=== PATIENT | female | born 1965 | race Caucasian/White ===

== ENCOUNTER 2017-03-15 22:11 | Emergency (ER) | payer OTHER ==
--- NOTE | 2017-03-15 22:34 | ED ---
General Adult HPI - General Source: patient, EMS, RN notes reviewed Mode of arrival: EMS Limitations: no limitations <Josesito Liang - Last Filed: 03/16/17 00:18> <Ottoniel Garner - Last Filed: 03/17/17 10:47> - General Chief complaint: Fall Stated complaint: fall Time Seen by Provider: 03/15/17 22:15 - History of Present Illness Initial comments: Patient is a pleasant 52-year-old female presenting to the emergency department following a fall. Patient states she fell getting out of bed. Patient omits to alcohol intake. Patient states she landed on her left hip and complains of pain there. Patient believes she did strike her head. No loss of consciousness. Mild headache right posterior side. No neck pain. No chest pain or dyspnea. Patient does frequently drink alcohol. (Josesito Liang) - Related Data Home Medications Medication Instructions Recorded Confirmed Calcium Carbonate [Calcium] 600 mg PO DAILY 03/16/17 03/16/17 L.acidoph,Paracasei, B.lactis 1 cap PO DAILY 03/16/17 03/16/17 [Probiotic] Multivitamins, Thera [Multivitamin 1 tab PO DAILY 03/16/17 03/16/17 (formulary)] Allergies Allergy/AdvReac Type Severity Reaction Status Date / Time Penicillins Allergy Unknown Verified 03/16/17 09:01 Review of Systems ROS Other: All systems not noted in ROS Statement are negative. Constitutional: Denies: fever Eyes: Denies: eye pain ENT: Denies: ear pain Respiratory: Denies: cough Cardiovascular: Denies: chest pain Endocrine: Denies: fatigue Gastrointestinal: Denies: abdominal pain Genitourinary: Denies: urgency Musculoskeletal: Denies: back pain Skin: Denies: rash Neurological: Denies: weakness <Josesito Liang - Last Filed: 03/16/17 00:18> ROS Other: All systems not noted in ROS Statement are negative. <Ottoniel Garner - Last Filed: 03/17/17 10:47> ROS Statement: Those systems with pertinent positive or pertinent negative responses have been documented in the HPI. Past Medical History Past Medical History: Diabetes Mellitus, Seizure Disorder History of Any Multi-Drug Resistant Organisms: None Reported Past Surgical History: Tubal Ligation Past Psychological History: Anxiety, Depression Smoking Status: Current every day smoker Past Alcohol Use History: Occasional Past Drug Use History: None Reported <Josesito Liang - Last Filed: 03/16/17 00:18> General Exam Limitations: no limitations General appearance: alert, in no apparent distress Head exam: Present: other (Mild tenderness right posterior) Eye exam: Present: normal appearance, PERRL, nystagmus ENT exam: Present: normal oropharynx Neck exam: Present: normal inspection. Absent: tenderness Respiratory exam: Present: normal lung sounds bilaterally Cardiovascular Exam: Present: regular rate, normal rhythm GI/Abdominal exam: Present: soft. Absent: tenderness Extremities exam: Present: normal inspection, tenderness (Moderate tenderness left lateral hip. Distally the extremity is neurovascular intact) Neurological exam: Present: alert, CN II-XII intact. Absent: motor sensory deficit Expanded Motor strength exam: RUE: 5, LUE: 5, RLE: 5, LLE: 5 Psychiatric exam: Present: normal affect, normal mood Skin exam: Absent: rash <Josesito Liang - Last Filed: 03/16/17 00:18> Course <Josesito Liang - Last Filed: 03/16/17 00:18> <Ottoniel Garner - Last Filed: 03/17/17 10:47> Vital Signs 03/15/17 03/15/17 03/15/17 22:24 22:34 23:50 Temperature 97.6 F Pulse Rate 111 H Respiratory 16 16 16 Rate Blood Pressure 147/99 O2 Sat by Pulse 99 Oximetry 03/16/17 03/16/17 03/16/17 07:11 07:12 10:26 Temperature 98.2 F Pulse Rate 78 91 Respiratory 78 H 18 18 Rate Blood Pressure 111/75 136/90 O2 Sat by Pulse 95 96 Oximetry 03/16/17 03/16/17 03/17/17 13:20 19:41 07:05 Temperature 98.5 F 98.0 F 97.6 F Pulse Rate 75 65 65 Respiratory 18 16 18 Rate Blood Pressure 144/87 152/97 159/99 O2 Sat by Pulse 95 98 99 Oximetry - Reevaluation(s) Reevaluation #1: 03/16/17 00:18 Patient was able to ambulate. Patient does complain of some depression and suicidal thoughts. No plan. (Josesito Liang) Medical Decision Making - Radiology Data Radiology results: report reviewed (Computed tomography scan of the brain and cervical spine show no acute abnormality.), image reviewed (X-ray left hip and pelvis shows no acute process.) <Josesito Liang - Last Filed: 03/16/17 00:18> - Lab Data Result diagrams: 03/16/17 13:23 03/16/17 13:23 <Ottoniel Garner - Last Filed: 03/17/17 10:47> - Medical Decision Making The patient was reevaluated by [facility] and it was determined that she would be suitable for outpatient treatment and follow-up. Patient was in agreement with this and she stated she could be safe if she was to go home. (Ottoniel Garner) - Lab Data Lab Results 03/16/17 03/16/17 03/16/17 Range/Units 02:00 13:23 13:23 WBC 5.2 (3.8-10.6) k/uL RBC 4.46 (3.80-5.40) m/uL Hgb 15.5 (11.4-16.0) gm/dL Hct 45.9 (34.0-46.0) % MCV 102.9 H (80.0-100.0) fL MCH 34.8 (25.0-35.0) pg MCHC 33.8 (31.0-37.0) g/dL RDW 15.4 (11.5-15.5) % Plt Count 173 (150-450) k/uL Neutrophils % 67 % Lymphocytes % 25 % Monocytes % 4 % Eosinophils % 1 % Basophils % 2 % Neutrophils # 3.4 (1.3-7.7) k/uL Lymphocytes # 1.3 (1.0-4.8) k/uL Monocytes # 0.2 (0-1.0) k/uL Eosinophils # 0.1 (0-0.7) k/uL Basophils # 0.1 (0-0.2) k/uL Macrocytosis Slight Sodium 138 (137-145) mmol/L Potassium 3.8 (3.5-5.1) mmol/L Chloride 102 (98-107) mmol/L Carbon Dioxide 26 (22-30) mmol/L Anion Gap 10 mmol/L BUN 12 (7-17) mg/dL Creatinine 0.63 (0.52-1.04) mg/dL Est GFR (MDRD) Af Amer >60 (>60 ml/min/1.73 sqM) Est GFR (MDRD) Non-Af >60 (>60 ml/min/1.73 sqM) Glucose 92 (74-99) mg/dL Calcium 9.1 (8.4-10.2) mg/dL Total Bilirubin 0.9 (0.2-1.3) mg/dL AST 126 H (14-36) U/L ALT 83 H (9-52) U/L Alkaline Phosphatase 85 (38-126) U/L Total Protein 6.7 (6.3-8.2) g/dL Albumin 4.0 (3.5-5.0) g/dL Salicylates <1.0 mg/dL Urine Opiates Screen Not Detected (NotDetected) Ur Oxycodone Screen Not Detected (NotDetected) Urine Methadone Screen Not Detected (NotDetected) Ur Propoxyphene Screen Not Detected (NotDetected) Acetaminophen <10.0 ug/mL Ur Barbiturates Screen Not Detected (NotDetected) U Tricyclic Antidepress Not Detected (NotDetected) Ur Phencyclidine Scrn Not Detected (NotDetected) Ur Amphetamines Screen Not Detected (NotDetected) U Methamphetamines Scrn Not Detected (NotDetected) U Benzodiazepines Scrn Not Detected (NotDetected) Urine Cocaine Screen Not Detected (NotDetected) U Marijuana (THC) Screen Not Detected (NotDetected) Disposition <Josesito Liang - Last Filed: 03/16/17 00:18> Time of Disposition: 10:47 <Ottoniel Garner - Last Filed: 03/17/17 10:47> Clinical Impression: Depression, Suicidal ideation, Alcohol intoxication Disposition: HOME SELF-CARE Instructions: Alcohol Intoxication (ED) Additional Instructions: Patient should follow-up at [facility] and at [place]. Referrals: Oliva Fernandez MD [Primary Care Provider] - 1-2 days
--- NOTE | 2017-03-15 23:20 | CT ---
EXAM: CT Head Without Intravenous Contrast CLINICAL HISTORY: Reason: Pain TECHNIQUE: Axial computed tomography images of the head/brain without intravenous contrast. CTDI is 57.40 mGy and DLP is 978.20 mGy-cm T his CT exam was performed using one or more of the following dose reduction techniques: automated exposure control, adjustment of the mA and/or kV according to patient size, and/or use of iterative reconstruction technique. COMPARISON: Head CT dated 02/08/14 FINDINGS: Brain: 16 mm densely calcified extra-axial mass along the right parietotemporal region may represent a calcified meningioma. Diffuse parenchymal atrophy. Mild chronic ischemic small vessel white matter disease. No acute hemorrhage or acute infarct. Ventricles: No ventriculomegaly or hydrocephalus. Bones/joints: Unremarkable. No acute fracture. Soft tissues: Unremarkable. Sinuses: Unremarkable as visualized. No acute sinusitis. Mastoid air cells: Unremarkable as visualized. No mastoid effusion. IMPRESSION: No acute intracranial hemorrhage. EXAM: CT Cervical Spine Without Intravenous Contrast CLINICAL HISTORY: Reason: Pain TECHNIQUE: Axial computed tomography images of the cervical spine without intravenous contrast. CTDI is 13.50 mGy and DLP is 271.00 mGy-cm This CT exam was performed using one or more of the following dose reduction techniques: automated exposure control, adjustment of the mA and/or kV according to patient size, and/or use of iterative reconstruction technique. COMPARISON: No relevant prior studies available. FINDINGS: Vertebrae: No suspicious lytic or sclerotic lesions of bone or acute or healing fracture. Discs/spinal canal/neural foramina: Mild multilevel degenerative changes. No acute findings. No spinal canal stenosis. Soft tissues: Unremarkable. Lung apices: Unremarkable as visualized. IMPRESSION: No acute or healing fracture or malalignment.
--- NOTE | 2017-03-15 23:29 | XR ---
EXAM: XR Pelvis, 1 or 2 Views CLINICAL HISTORY: Reason: Pain TECHNIQUE: Frontal view of the pelvis. 2 views of the left hip. COMPARISON: No relevant prior studies available. FINDINGS: Bones/joints: Unremarkable. No acute fracture. No dislocation. Soft tissues: Multiple phleboliths in the pelvis. No other soft tissue abnormalities. IMPRESSION: No significant abnormalities.
[2017-03-16 14:05] LABS: Basophils # (A) 0.1 k/uL (0-0.2); Basophils % (A) 2 %; CH 34.5; CHCM 33.7; Eosinophils # (A) 0.1 k/uL (0-0.7); Eosinophils % (A) 1 %; HCT 45.9 % (34.0-46.0); HDW 2.13; HGB 15.5 gm/dL (11.4-16.0); Luc # (Auto) 0.08; Luc % (Auto) 2; Lymphocytes # (A) 1.3 k/uL (1.0-4.8); Lymphocytes % (A) 25 %; MCH 34.8 pg (25.0-35.0); MCHC 33.8 g/dL (31.0-37.0); MCV 102.9 fL (80.0-100.0); Macrocytosis Slight; Mean Platelet Volume 7.4; Monocytes # (A) 0.2 k/uL (0-1.0); Monocytes % (A) 4 %; Neutrophils # (A) 3.4 k/uL (1.3-7.7); Neutrophils % (A) 67 %; RBC 4.46 m/uL (3.80-5.40); RDW 15.4 % (11.5-15.5); WBC 5.2 k/uL (3.8-10.6); WBC (Perox) 5.01
[2017-03-16 14:08] LABS: ALT 83 U/L (9-52); AST 126 U/L (14-36); Acetaminophen <10.0 ug/mL; Alkaline Phosphatase 85 U/L (38-126); Anion Gap 10 mmol/L; Blood Urea Nitrogen 12 mg/dL (7-17); Calcium 9.1 mg/dL (8.4-10.2); Carbon Dioxide 26 mmol/L (22-30); Chloride 102 mmol/L (98-107); Glucose 92 mg/dL (74-99); Non-African American GFR(MDRD) >60 (>60 ml/min/1.73 sqM); Potassium 3.8 mmol/L (3.5-5.1); Salicylate <1.0 mg/dL; Sodium 138 mmol/L (137-145); Total Bilirubin 0.9 mg/dL (0.2-1.3); Total Protein 6.7 g/dL (6.3-8.2)
[2017-03-17 07:06] VITALS: RESP 18
[2017-03-17 11:25] VITALS: BP 149/80; PULSE 67; TEMP 97.8
== END 2017-03-17 11:24 | disposition home or self-care (01) ==
LOC: EC 22:11
DX: R45.851 Suicidal ideations (principal); F32.9 Major depressive disorder, single episode, unspecified; F10.129 Alcohol abuse with intoxication, unspecified; M25.552 Pain in left hip; R51 Headache; F41.9 Anxiety disorder, unspecified; F17.200 Nicotine dependence, unspecified, uncomplicated; Z79.899 Other long term (current) drug therapy; Z88.0 Allergy status to penicillin; W06.XXXA Fall from bed, initial encounter
CPT/HCPCS: 36415; 70450; 72125; 73502; 80053; 80306; 82075; 83520; 85025; 99284

== ENCOUNTER 2019-02-04 10:08 | Emergency (ER) | payer OTHER ==
--- NOTE | 2019-02-04 10:47 | XR ---
EXAMINATION TYPE: XR chest 2V DATE OF EXAM: 02/04/2019 COMPARISON: 05/15/2014 HISTORY: 53 year-old female right-sided chest pain with productive cough for 3 weeks, pain TECHNIQUE: PA and lateral views FINDINGS: The cardiomediastinal silhouette, aorta, and pulmonary vasculature are within normal limits. Lungs an d pleural spaces are clear. IMPRESSION: No acute cardiopulmonary process.
[2019-02-04] MEDS ORDERED: predniSONE 20 MG TAB PO STA (11:32)
--- NOTE | 2019-02-04 11:33 | ED ---
URI HPI - General Chief Complaint: Upper Respiratory Infection Stated Complaint: poss flu Time Seen by Provider: 02/04/19 10:13 Source: patient Mode of arrival: ambulatory Limitations: no limitations - History of Present Illness Initial Comments: 53-year-old female diabetes presenting today for chief complaint of persistent cough and right rib pain x2 weeks. She states that she has had flulike symptoms for the past weeks, she states she has had body aches, cough and congestion. She states she's had persistent cough, causing her to have right rib pain. She has been evaluated by primary care provider and provided level floxacillin, inhaler, promethazine and Claritin. Patient states this is not alleviate symptoms. Patient denies a chest pain, dyspnea, dyspnea on exertion, nausea, vomiting, diarrhea, fever, night sweats, dizziness headache, ear pain or sinus pressure. Review of systems negative. Upon arrival patient appears well patient is afebrile. Appears nontoxic. Audible dry cough. - Related Data Home Medications Medication Instructions Recorded Confirmed Levofloxacin [Levaquin] 500 mg PO DAILY 02/04/19 02/04/19 Loratadine [Claritin] 10 mg PO DAILY 02/04/19 02/04/19 Promethazine HCl [Phenergan Syrup] 6.25 mg PO QID PRN 02/04/19 02/04/19 Previous Rx's Medication Instructions Recorded predniSONE 20 mg PO DAILY 4 Days #4 tab 02/04/19 Allergies Allergy/AdvReac Type Severity Reaction Status Date / Time Penicillins Allergy Unknown Verified 02/04/19 10:40 Review of Systems ROS Statement: Those systems with pertinent positive or pertinent negative responses have been documented in the HPI. ROS Other: All systems not noted in ROS Statement are negative. Past Medical History Past Medical History: Diabetes Mellitus, Seizure Disorder Additional Past Medical History / Comment(s): IBS History of Any Multi-Drug Resistant Organisms: None Reported Past Surgical History: Tubal Ligation Past Psychological History: Anxiety, Depression Smoking Status: Current every day smoker Past Alcohol Use History: Occasional Past Drug Use History: None Reported General Exam - General Exam Comments Initial Comments: General: The patient is awake and alert, in no distress, and does not appear acutely ill. Eye: +3 mm pupils are equal, round and reactive to light, extra-ocular movements are intact. No nystagmus. There is normal conjunctiva bilaterally. No signs of icterus. No photophobia Ears, nose, mouth and throat: There are moist mucous membranes and no oral lesions. Oropharynx was not erythematous there is no tonsillar enlargement exudates or lesions. Uvula midline. Tympanic membranes are not erythematous or is no effusions bulging or retraction. No tenderness to palpation of the mastoid. No anterior cervical lymphadenopathy. Rhinorrhea, clear and bilateral nares. No tripoding, no drooling. Neck: The neck is supple, there is no tenderness or JVD. No nuchal rigidity negative Brudzinski and Kernig Cardiovascular: There is a regular rate and rhythm. No murmur, rub or gallop is appreciated. Respiratory: Lungs are clear to auscultation, respirations are non-labored, breath sounds are equal. No wheezes, stridor, rales, or rhonchi. No retractions or abdominal breathing. Dry cough Gastrointestinal: Soft, non-distended, non-tender abdomen without masses or organomegaly noted. There is no rebound or guarding present. Bowel sounds are unremarkable. Musculoskeletal: Normal ROM, no tenderness. Strength 5/5. Sensation intact. Radial pulses equal bilaterally 2+. Neurological: A&O x 3. CN II-XII intact, There are no obvious motor or sensory deficits. Coordination appears grossly intact. Speech appears normal, no muffling. Skin: Skin is warm and dry and no rashes or lesions are noted. No extremity edema Psychiatric: Cooperative Limitations: no limitations Course Vital Signs 02/04/19 02/04/19 10:09 11:52 Temperature 97.5 F L 98 F Pulse Rate 108 H 78 Respiratory 18 16 Rate Blood Pressure 148/89 152/69 O2 Sat by Pulse 98 100 Oximetry Medical Decision Making - Medical Decision Making Chest x-ray negative for pneumonia. Influenza negative. Patient's lungs clear to auscultation. Patient appears well nontoxic. Patient denies any dyspnea, chest pain or dyspnea on exertion. Patient has obvious upper respiratory symptoms including congestion, a dry cough. At this time feel patient has viral bronchitis. Patient will have prescription provided for oral steroids. Patient has inhaler as well as Claritin and antibiotic provided by primary care provider. I discussed the case with her provider Dr. Garner. At this time the patient is stable for discharge with outpatient follow-up. Return parameters were discussed at length patient verbalizes understanding. Patient appears pleased with plan, denies questions at this time. Patient discharged appearing well - Lab Data Lab Results 02/04/19 Range/Units 10:53 Influenza Type A RNA Not Detected (Not Detectd) Influenza Type B (PCR) Not Detected (Not Detectd) Disposition Clinical Impression: Bronchitis Disposition: HOME SELF-CARE Condition: Good Instructions (If sedation given, give patient instructions): Acute Bronchitis (ED), Chronic Bronchitis (ED) Additional Instructions: Please use medication as discussed. Please follow-up with family doctor in the next 2 days.. Please return to emergency room if the symptoms increase or worsen or for any other concerns. Prescriptions: predniSONE 20 mg PO DAILY 4 Days #4 tab Is patient prescribed a controlled substance at d/c from ED?: No Referrals: Oliva Fernandez MD [Primary Care Provider] - 1-2 days Time of Disposition: 11:33
[2019-02-04 11:53] VITALS: BP 152/69; PULSE 78; RESP 16; TEMP 98
== END 2019-02-04 11:54 | disposition home or self-care (01) ==
LOC: EC 10:08
DX: J40 Bronchitis, not specified as acute or chronic (principal); F17.200 Nicotine dependence, unspecified, uncomplicated; Z79.899 Other long term (current) drug therapy; Z88.0 Allergy status to penicillin
CPT/HCPCS: 87502; 71046; 99283; J7512

== ENCOUNTER → 2019-10-01 | Outpatient (CLI) | payer OTHER ==
--- NOTE | 2019-10-05 10:27 | MM ---
Reason for exam: screening (asymptomatic). Last mammogram was performed 3 years and 11 months ago. History: Patient is postmenopausal. Family history of breast cancer in mother at age 30. Benign left mammotome panel of the left breast, May 01, 2009. Left Mammotome Panel of the left breast, March 31, 2009. Benign left mammotome panel of the left breast, March 31, 2009. Took hormonal contraceptives for 3 years beginning at age 16. Physical Findings: A clinical breast exam by your physician is recommended on an annual basis and results should be correlated with mammographic findings. MG Screening Mammo w CAD Bilateral CC and MLO view(s) were taken. Prior study comparison: October 30, 2015, bilateral MG screening mammo w CAD. September 15, 2014, bilateral MG screening mammo w CAD. The breast tissue is heterogeneously dense. This may lower the sensitivity of mammography. Previous mammotome biopsy in the left breast x 3. Scattered areas of asymmetric densities, two on the right and one on the left MLO view are more pronounced. ASSESSMENT: Incomplete: need additional imaging evaluation, BI-RAD 0 RECOMMENDATION: Special view mammogram of both breasts. (3D) If lesion persists on supplemental views, image directed ultrasound is recommended. [facility] will attempt to contact patient to return for supplemental views and ultrasound if indicated.
== END | disposition home or self-care (01) ==
LOC: RADMAMWWP 14:39
PROVIDERS: ATTEND Internal Medicine
DX: Z12.31 Encounter for screening mammogram for malignant neoplasm of breast (principal)
CPT/HCPCS: 77067

== ENCOUNTER → 2019-10-29 | Outpatient (CLI) | payer OTHER ==
--- NOTE | 2019-11-01 10:29 | MM ---
Reason for exam: additional evaluation requested from abnormal screening. Last mammogram was performed 1 month ago. History: Patient is postmenopausal. Family history of breast cancer in mother at age 30. Benign left mammotome panel of the left breast, May 01, 2009. Left Mammotome Panel of the left breast, March 31, 2009. Benign left mammotome panel of the left breast, March 31, 2009. Took hormonal contraceptives for 3 years beginning at age 16. Physical Findings: Nurse did not find any significant physical abnormalities on exam. MG 3D Work Up W/Cad JANETTE Bilateral spot compression MLO and LM view(s) were taken. Spot compression CC view(s) were taken of the right breast. Prior study comparison: October 01, 2019, bilateral MG screening mammo w CAD. October 30, 2015, bilateral MG screening mammo w CAD. The breast tissue is heterogeneously dense. This may lower the sensitivity of mammography. he previously seen abnormality resolves on additional views and appears as fibroglandular tissue compatible with summation on the right breast. Left biopsy markers noted. Left superior asymmetry is stable back to 2014. These results were verbally communicated with the patient and result sheet given to the patient on 10/29/19. ASSESSMENT: Benign, BI-RAD 2 RECOMMENDATION: Return to routine screening mammogram schedule for both breasts.
== END | disposition home or self-care (01) ==
LOC: RADMAMWWP 13:22
PROVIDERS: ATTEND Internal Medicine
DX: R92.8 Other abnormal and inconclusive findings on diagnostic imaging of breast (principal)
CPT/HCPCS: 77066; G0279; 77062

== ENCOUNTER 2019-12-14 09:32 | Emergency (ER) | payer OTHER ==
[2019-12-14 09:45] VITALS: TEMP 97.9
[2019-12-14] MEDS ORDERED: KETOROLAC 30 MG/ML 1 ML VIAL IM STA (10:01)
[2019-12-14] MEDS ORDERED: MORPHINE SULFATE 4 MG/ML SYRINGE IM STA (10:01)
--- NOTE | 2019-12-14 10:04 | ED ---
Fall HPI - General Chief Complaint: Fall Stated Complaint: fall, rib/side pain Time Seen by Provider: 12/14/19 09:47 Source: patient, RN notes reviewed, old records reviewed Mode of arrival: ambulatory - History of Present Illness Initial Comments: Patient is a 54-year-old female who presents emergency department today for evaluation for left-sided rib pain. Patient reports that she fell on her edge of a coffee table on Friday. She complains of bruising over her left ribs. Denies any abdominal pain. Denies any changes in urination. Not on blood thinners. No head or neck injury. Patient reports that she's had pain with taking a deep breath since that time area did Patient states that she's not been quite uncomfortable unable to sleep well. - Related Data Home Medications Medication Instructions Recorded Confirmed Levofloxacin [Levaquin] 500 mg PO DAILY 02/04/19 02/04/19 Loratadine [Claritin] 10 mg PO DAILY 02/04/19 02/04/19 Promethazine HCl [Phenergan Syrup] 6.25 mg PO QID PRN 02/04/19 02/04/19 Previous Rx's Medication Instructions Recorded predniSONE [Deltasone] 20 mg PO DAILY 4 Days #4 tab 02/04/19 Acetaminophen with Codeine 1 tab PO Q4H PRN 3 Days #18 tab 12/14/19 [Tylenol w/codeine #3] Lidocaine 5% Patch [Lidoderm 5% 1 patch TOPICAL DAILY #20 patch 12/14/19 Patch] Allergies Allergy/AdvReac Type Severity Reaction Status Date / Time Penicillins Allergy Unknown Verified 02/04/19 10:40 Review of Systems ROS Statement: Those systems with pertinent positive or pertinent negative responses have been documented in the HPI. ROS Other: All systems not noted in ROS Statement are negative. Past Medical History Past Medical History: Diabetes Mellitus, Seizure Disorder Additional Past Medical History / Comment(s): IBS History of Any Multi-Drug Resistant Organisms: None Reported Past Surgical History: Tubal Ligation Past Psychological History: Anxiety, Depression Smoking Status: Current every day smoker Past Alcohol Use History: Occasional Past Drug Use History: None Reported General Exam - General Exam Comments Initial Comments: 54-year-old female. Alert and oriented 3. No acute distress. Limitations: no limitations General appearance: alert, in no apparent distress Head exam: Present: atraumatic, normocephalic, normal inspection Eye exam: Present: normal appearance, PERRL, EOMI. Absent: scleral icterus, conjunctival injection, periorbital swelling ENT exam: Present: normal exam, mucous membranes moist Neck exam: Present: normal inspection. Absent: tenderness, meningismus, lymphadenopathy Respiratory exam: Present: normal lung sounds bilaterally, other ( has a 6 cm x 10 cm linear bruise over the left lower ribs. Tenderness over the the ribs up into the sternum.). Absent: respiratory distress, wheezes, rales, rhonchi, stridor Cardiovascular Exam: Present: regular rate, normal rhythm, normal heart sounds. Absent: systolic murmur, diastolic murmur, rubs, gallop, clicks GI/Abdominal exam: Present: soft, normal bowel sounds. Absent: distended, tenderness, guarding, rebound, rigid Extremities exam: Present: normal inspection, full ROM, normal capillary refill. Absent: tenderness, pedal edema, joint swelling, calf tenderness Back exam: Present: normal inspection Neurological exam: Present: alert, oriented X3, CN II-XII intact Psychiatric exam: Present: normal affect, normal mood Skin exam: Present: warm, dry, intact, normal color. Absent: rash Course Vital Signs 12/14/19 09:42 Temperature 97.9 F Pulse Rate 107 H Respiratory 20 Rate Blood Pressure 155/90 O2 Sat by Pulse 99 Oximetry Medical Decision Making - Medical Decision Making Patient's a 54-year-old female who presents emergency department today for days after a fall. Patient reports that she fell onto Her Coffee Table Causing a Bruise over Her Left ribs. Patient Reports No Abdominal Pain. She does have some pain with taking a deep breath. Patient's vital signs are stable. Denies any abdominal tenderness, no changes in urination or bowel habits. Patient is not on blood thinners. Patient does have a 6 x 8 area linear bruise over her ribs 9 and 1011. Patient chest x-ray shows no evidence of pneumothorax or plueral effusion. Patient was given IM Toradol and morphine for pain relief. Patient was given incentive spirometer, as discussed rib contusion could still be related to some nondisplaced fractures at this time. I discussed the Patient should use and says from to prevent pneumonia. We will discharge the Patient at this time. Lidocaine patches, short course of pain medicine and given a note for work. Advised prompt follow-up with PCP. - Radiology Data Radiology results: report reviewed No acute displaced left rib fractures seen. The old left rib 5 fractures well- healed and no longer visualized. Disposition Clinical Impression: Fall, Rib contusion Disposition: HOME SELF-CARE Condition: Good Instructions (If sedation given, give patient instructions): Rib Contusion (ED), Rib Fracture (ED) Additional Instructions: Patient advsied to use the incentive spirometry as discussed. Using the pain medication as prescribed as well. Follow-up with your primary care physician. Return to emergency department if any alarming signs or symptoms occur. Prescriptions: Lidocaine 5% Patch [Lidoderm 5% Patch] 1 patch TOPICAL DAILY #20 patch Acetaminophen with Codeine [Tylenol w/codeine #3] 1 tab PO Q4H PRN 3 Days #18 tab PRN Reason: Pain Is patient prescribed a controlled substance at d/c from ED?: Yes If prescribed controlled substance>3 days was MAPS reviewed?: Prescribed <3 Days If opioid is for acute pain is fill amount 7 days or less?: Yes If Rx opioid, was Start Talking consent form obtained?: Yes Referrals: Oliva Fernandez MD [Primary Care Provider] - 1-2 days Time of Disposition: 11:26
--- NOTE | 2019-12-14 10:56 | XR ---
EXAMINATION TYPE: XR ribs LT w pa chest xray DATE OF EXAM: 12/14/2019 CLINICAL HISTORY: Left rib pain after fall 5 days ago TECHNIQUE: Single frontal view of the chest is obtained. COMPARISON: 02/04/2019 and 05/15/2014 FINDINGS: The old left fifth rib fracture has healed well and is not appreciated. There is no focal air space opacity, pleural effusion, or pneumothorax seen. The cardiac silhouette size is within nor mal limits. No acute displaced left rib fractures seen nor healed fracture deformity. IMPRESSION: No acute displaced left rib fracture is seen. The old left rib 5 fracture is well-healed and no longer visualized.
[2019-12-14 11:34] VITALS: BP 148/88; PULSE 88; RESP 18
== END 2019-12-14 11:29 | disposition home or self-care (01) ==
LOC: EC 09:32
DX: S20.212A Contusion of left front wall of thorax, initial encounter (principal); F17.200 Nicotine dependence, unspecified, uncomplicated; Z79.899 Other long term (current) drug therapy; Z88.0 Allergy status to penicillin; Z53.29 Procedure and treatment not carried out because of patient's decision for other reasons; W01.198A Fall on same level from slipping, tripping and stumbling with subsequent striking against other object, initial encounter
CPT/HCPCS: 71101; 99284; 96372; J1885

== ENCOUNTER → 2020-05-24 | Outpatient (CLI) | payer OTHER | END | disposition home or self-care (01) | LOC: LABWHC1 09:21 | PROVIDERS: ATTEND Internal Medicine | DX: Z53.9 Procedure and treatment not carried out, unspecified reason (principal) ==

== ENCOUNTER → 2020-05-26 | Outpatient (CLI) | payer OTHER ==
[2020-05-26 13:34] LABS: HGB 13.6 gm/dL (11.4-16.0); MCH 34.8 pg (25.0-35.0); MCHC 32.5 g/dL (31.0-37.0); MCV 106.9 fL (80.0-100.0); Macrocytosis Moderate; Mean Platelet Volume 8.2; Platelet Count 134 k/uL (150-450); RBC 3.93 m/uL (3.80-5.40); RDW 13.4 % (11.5-15.5); WBC 4.6 k/uL (3.8-10.6)
[2020-05-27 00:11] LABS: African American GFR (CKD) 113.8 (60.0-200.0); Albumin 4.4 g/dL (3.80-4.90); Albumin/Globulin Ratio 1.83 (1.60-3.17); Anion Gap 10.3 mmol/L (4.00-12.00); Calcium 9.3 mg/dL (8.7-10.3); Carbon Dioxide 28.7 mmol/L (21.6-31.8); Chol/HDL Ratio 1.9; Globulin 2.4 g/dL (1.6-3.3); LDL Cholesterol,Calculated 77.4 mg/dL (0.0-131.0); Non-African American GFR(CKD) 98.2 (60.0-200.0); Total Bilirubin 0.8 mg/dL (0.2-1.2); Total Protein 6.8 g/dL (6.2-8.2); VLDL Calculation 20.6 mg/dL (5.00-40.00)
== END | disposition home or self-care (01) ==
LOC: LABWHC1 11:43
PROVIDERS: ATTEND Internal Medicine
DX: Z00.00 Encounter for general adult medical examination without abnormal findings (principal); K58.9 Irritable bowel syndrome, unspecified
CPT/HCPCS: 36415; 80053; 80061; 82306; 84439; 84443; 85027

== ENCOUNTER 2020-08-24 09:47 | Observation (INO) | payer OTHER ==
[2020-08-24 10:06] LABS: Glucose,Whole Blood 289 mg/dL (75-99)
[2020-08-24] MEDS ORDERED: SODIUM CHLORIDE 0.9% 1,000 ML IV STA (10:17)
--- NOTE | 2020-08-24 10:27 | ED ---
General Adult HPI - General Chief complaint: Dizziness Stated complaint: Fall, head lac Time Seen by Provider: 08/24/20 10:07 Source: EMS, RN notes reviewed, old records reviewed Mode of arrival: EMS Limitations: no limitations - History of Present Illness Initial comments: 55-year-old female patient presents for evaluation of syncopal episode. Patient reports that she woke up the morning to go to the bathroom about 2 AM. Patient reports that she felt kind of weird. Patient reports the She woke on the ground. Patient does not know how long she was unconscious for. Patient then walked back to the bed. Patient reports she has a cut in her head. This complaining of a headache. She reports some neck pain but she reports that that baseline. Denies any chest pain or shortness of breath. Denies any other acute complaints. Systemic: Pt denies fatigue, fever/chills, rash. Pt denies weakness, night sweats, weight loss. Neuro: Pt denies headache, visual disturbances, pre-syncope. HEENT: Pt denies ocular discharge or irritation, otalgia, rhinorrhea, pharyngitis or notable lymphadenopathy. Cardiopulmonary: Pt denies chest pain, SOB, heart palpitations, dyspnea on exertion. Abdominal/GI: Pt denies abdominal pain, n/v/d. : Pt denies dysuria, burning w/ urination, frequency/urgency. Denies new onset urinary or bowel incontinence. MSK: Pt denies myalgia, loss of strength or function in extremities. Neuro: Pt denies new onset weakness, paresthesias. - Related Data Home Medications Medication Instructions Recorded Confirmed Butalb/Acetaminophen/Caffeine 1 cap PO Q6H PRN 08/24/20 08/24/20 [Esgic 50-325-40 Capsule] Cetirizine HCl [Zyrtec] 10 mg PO DAILY PRN 08/24/20 08/24/20 Montelukast [Singulair] 10 mg PO HS 08/24/20 08/24/20 Multivitamins, Thera [Multivitamin 1 tab PO DAILY 08/24/20 08/24/20 (formulary)] Verapamil HCl [Verapamil ER] 120 mg PO DAILY 08/24/20 08/24/20 Vitamin C/Biotin [Hair, Skin and 1 tab PO DAILY 08/24/20 08/24/20 Nails] Allergies Allergy/AdvReac Type Severity Reaction Status Date / Time Penicillins Allergy Unknown Verified 08/24/20 10:43 Review of Systems ROS Statement: Those systems with pertinent positive or pertinent negative responses have been documented in the HPI. ROS Other: All systems not noted in ROS Statement are negative. Past Medical History Past Medical History: Diabetes Mellitus, Seizure Disorder Additional Past Medical History / Comment(s): IBS History of Any Multi-Drug Resistant Organisms: None Reported Past Surgical History: Tubal Ligation Past Psychological History: Anxiety, Depression Smoking Status: Current every day smoker Past Alcohol Use History: Occasional Past Drug Use History: None Reported General Exam - General Exam Comments Initial Comments: Constitutional: NAD, AOX3, Pt has pleasant affect. HEENT: NC/AT, trachea midline, neck supple, no lymphadenopathy. Posterior pharynx non erythematous, without exudates. External ears appear normal, without discharge. Mucous membranes moist. Eyes PERRLA, EOM intact. There is no scleral icterus. No pallor noted. Cardiopulmonary: RRR, no murmurs, rubs or gallops, no JVD noted. Lungs CTAB in anterior and posterior hernandez. No peripheral edema. Abdominal exam: Abdomen soft and non-distended. Abdomen non-tender to palpation in all 4 quadrants. Bowel sounds active in LLQ. No hepatosplenomegaly. No ecchymosis Neuro: CN II-XII intact. No nuchal rigidity. No raccon eyes, no pepper sign, no hemotympanum. Mild amount of right paracerbical tenderness. Posterior scalp laceration about 4 cm irrigated and repaired with 5 jan. MSK: Full active ROM in upper and lower extremities, 5/5 stregnth. Limitations: no limitations Course Vital Signs 08/24/20 08/24/20 08/24/20 09:49 10:06 10:13 Temperature 98.1 F Pulse Rate 117 H 129 H Respiratory 18 18 Rate Blood Pressure 120/73 O2 Sat by Pulse 99 99 Oximetry 08/24/20 13:45 Temperature Pulse Rate 92 Respiratory 16 Rate Blood Pressure 127/63 O2 Sat by Pulse 99 Oximetry Procedures - Laceration Laceration #1 Consent Obtained: verbal consent Indication: laceration Site: scalp Size (cm): 4 Description: linear Depth: simple, single layer Anesthesia Technique: local infiltration Pre-repair: wound explored, irrigated extensively, deep structures intact Type of Sutures: other (staple) Size of Sutures: other (7) Number of Sutures: 6 Medical Decision Making - Medical Decision Making 55-year-old female patient presents to ED for evaluation of tick bite episode happened last night patient has headache and some mild neck pain. Vital signs display tachycardia. Physical exam the laceration which was repaired. Neurologic exams intact.Investigations reveal some dehydration. Patient administered on fluid bolus maintenance fluids. Patient was tachycardic initially on presentation. D-dimer is elevated CT is performed is negative for acute PE. Patient be admitted for telemetry and further evaluation. Case discussed with Dr. Garner. - Lab Data Result diagrams: 08/24/20 10:08/24/20 10: Lab Results 08/24/20 08/24/20 08/24/20 Range/Units 10:05 10: 10:26 WBC 9.0 (3.8-10.6) k/uL RBC 2.68 L (3.80-5.40) m/uL Hgb 9.7 L (11.4-16.0) gm/dL Hct 28.7 L (34.0-46.0) % MCV 107.1 H (80.0-100.0) fL MCH 36.3 H (25.0-35.0) pg MCHC 33.9 (31.0-37.0) g/dL RDW 13.1 (11.5-15.5) % Plt Count 130 L (150-450) k/uL Neutrophils % 88 % Lymphocytes % 9 % Monocytes % 2 % Eosinophils % 1 % Basophils % 0 % Neutrophils # 7.9 H (1.3-7.7) k/uL Lymphocytes # 0.8 L (1.0-4.8) k/uL Monocytes # 0.2 (0-1.0) k/uL Eosinophils # 0.1 (0-0.7) k/uL Basophils # 0.0 (0-0.2) k/uL Macrocytosis Moderate PT 10.4 (9.0-12.0) sec INR 1.0 (<1.2) APTT 18.4 L (22.0-30.0) sec D-Dimer 0.69 H (<0.60) mg/L FEU Sodium (137-145) mmol/L Potassium (3.5-5.1) mmol/L Chloride (98-107) mmol/L Carbon Dioxide (22-30) mmol/L Anion Gap mmol/L BUN (7-17) mg/dL Creatinine (0.52-1.04) mg/dL Est GFR (CKD-EPI)AfAm (>60 ml/min/1.73 sqM) Est GFR (CKD-EPI)NonAf (>60 ml/min/1.73 sqM) Glucose (74-99) mg/dL POC Glucose (mg/dL) 289 H (75-99) mg/dL POC Glu Control Board Operator ID Calcium (8.4-10.2) mg/dL Total Bilirubin (0.2-1.3) mg/dL AST (14-36) U/L ALT (4-34) U/L Alkaline Phosphatase (38-126) U/L Troponin I (0.000-0.034) ng/mL Total Protein (6.3-8.2) g/dL Albumin (3.5-5.0) g/dL Urine Color Urine Appearance (Clear) Urine pH (5.0-8.0) Ur Specific [place] (1.001-1.035) Urine Protein (Negative) Urine Glucose (UA) (Negative) Urine Ketones (Negative) Urine Blood (Negative) Urine Nitrite (Negative) Urine Bilirubin (Negative) Urine Urobilinogen (<2.0) mg/dL Ur Leukocyte Esterase (Negative) Urine RBC (0-5) /hpf Urine WBC (0-5) /hpf Ur Squamous Epith Cells (0-4) /hpf Calcium Oxalate Crystal (None) /hpf Urine Bacteria (None) /hpf Hyaline Casts (0-2) /lpf Urine Mucus (None) /hpf 08/24/20 08/24/20 08/24/20 Range/Units 10:26 10:26 10:26 WBC (3.8-10.6) k/uL RBC (3.80-5.40) m/uL Hgb (11.4-16.0) gm/dL Hct (34.0-46.0) % MCV (80.0-100.0) fL MCH (25.0-35.0) pg MCHC (31.0-37.0) g/dL RDW (11.5-15.5) % Plt Count (150-450) k/uL Neutrophils % % Lymphocytes % % Monocytes % % Eosinophils % % Basophils % % Neutrophils # (1.3-7.7) k/uL Lymphocytes # (1.0-4.8) k/uL Monocytes # (0-1.0) k/uL Eosinophils # (0-0.7) k/uL Basophils # (0-0.2) k/uL Macrocytosis PT (9.0-12.0) sec INR (<1.2) APTT (22.0-30.0) sec D-Dimer (<0.60) mg/L FEU Sodium 132 L (137-145) mmol/L Potassium 3.6 (3.5-5.1) mmol/L Chloride 98 (98-107) mmol/L Carbon Dioxide 24 (22-30) mmol/L Anion Gap 10 mmol/L BUN 21 H (7-17) mg/dL Creatinine 0.74 (0.52-1.04) mg/dL Est GFR (CKD-EPI)AfAm >90 (>60 ml/min/1.73 sqM) Est GFR (CKD-EPI)NonAf >90 (>60 ml/min/1.73 sqM) Glucose 243 H (74-99) mg/dL POC Glucose (mg/dL) (75-99) mg/dL POC Glu Control Board Operator ID Calcium 9.1 (8.4-10.2) mg/dL Total Bilirubin 1.2 (0.2-1.3) mg/dL AST 39 H (14-36) U/L ALT 19 (4-34) U/L Alkaline Phosphatase 61 (38-126) U/L Troponin I <0.012 (0.000-0.034) ng/mL Total Protein 6.4 (6.3-8.2) g/dL Albumin 4.2 (3.5-5.0) g/dL Urine Color Yellow Urine Appearance Cloudy H (Clear) Urine pH 6.5 (5.0-8.0) Ur Specific [place] 1.017 (1.001-1.035) Urine Protein Trace H (Negative) Urine Glucose (UA) 2+ H (Negative) Urine Ketones 2+ H (Negative) Urine Blood Negative (Negative) Urine Nitrite Negative (Negative) Urine Bilirubin Negative (Negative) Urine Urobilinogen 3.0 (<2.0) mg/dL Ur Leukocyte Esterase Trace H (Negative) Urine RBC 1 (0-5) /hpf Urine WBC 4 (0-5) /hpf Ur Squamous Epith Cells 9 H (0-4) /hpf Calcium Oxalate Crystal Rare H (None) /hpf Urine Bacteria Rare H (None) /hpf Hyaline Casts 45 H (0-2) /lpf Urine Mucus Few H (None) /hpf - EKG Data -: EKG Interpreted by Me (and Dr. Garner ) EKG Comments: ventricular rate 121 but MB/122, QRS 70, QT/QTC 310/440. Sinus tachycardia, not stiff acute abnormality. No concern for acute ischemia this time. Disposition Clinical Impression: Syncope Disposition: ADMITTED IP TO THIS HOSP Condition: Serious Is patient prescribed a controlled substance at d/c from ED?: No Referrals: Oliva Fernandez MD [Primary Care Provider] - 1-2 days
[2020-08-24 10:38] LABS: Basophils % (A) 0 %; Eosinophils # (A) 0.1 k/uL (0-0.7); Eosinophils % (A) 1 %; HCT 28.7 % (34.0-46.0); HGB 9.7 gm/dL (11.4-16.0); Lymphocytes # (A) 0.8 k/uL (1.0-4.8); Lymphocytes % (A) 9 %; MCH 36.3 pg (25.0-35.0); MCHC 33.9 g/dL (31.0-37.0); MCV 107.1 fL (80.0-100.0); Macrocytosis Moderate; Mean Platelet Volume 8.8; Monocytes # (A) 0.2 k/uL (0-1.0); Monocytes % (A) 2 %; Neutrophils # (A) 7.9 k/uL (1.3-7.7); Neutrophils % (A) 88 %; Platelet Count 130 k/uL (150-450); RBC 2.68 m/uL (3.80-5.40); RDW 13.1 % (11.5-15.5)
[2020-08-24 10:55] LABS: ALT 19 U/L (4-34); AST 39 U/L (14-36); African American GFR (CKD) >90 (>60 ml/min/1.73 sqM); Albumin 4.2 g/dL (3.5-5.0); Alkaline Phosphatase 61 U/L (38-126); Anion Gap 10 mmol/L; Blood Urea Nitrogen 21 mg/dL (7-17); Calcium 9.1 mg/dL (8.4-10.2); Carbon Dioxide 24 mmol/L (22-30); Chloride 98 mmol/L (98-107); Glucose 243 mg/dL (74-99); Non-African American GFR(CKD) >90 (>60 ml/min/1.73 sqM); Potassium 3.6 mmol/L (3.5-5.1); Sodium 132 mmol/L (137-145); Total Bilirubin 1.2 mg/dL (0.2-1.3); Total Protein 6.4 g/dL (6.3-8.2)
[2020-08-24 11:03] LABS: Prothrombin Time 10.4 sec (9.0-12.0)
[2020-08-24 11:09] LABS: D-Dimer 0.69 mg/L FEU (<0.60); Partial Thromboplastin Time 18.4 sec (22.0-30.0)
--- NOTE | 2020-08-24 11:42 | CT ---
EXAMINATION TYPE: CT brain cspine wo con DATE OF EXAM: 08/24/2020 COMPARISON: CT brain and cervical spine March 15, 2017 HISTORY: Fall injury today with headache and neck pain. CT DLP: 1242.3 mGycm. Automated Exposure Control for Dose Reduction was Utilized. TECHNIQUE: CT scan of the head and cervical spine are performed without contrast. FINDINGS: There is no acute intracranial hemorrhage or midline shift identified. Mild to moderate v entricular and sulcal prominence greatest over the bilateral frontal lobes redemonstrated. Conner-white matter differentiation maintained. There is stable 1.5 cm calcified or ossified meningioma right fro ntal temporal region axial image 26 redemonstrated . Small to moderate size right parietal scalp ashish jassi with laceration injury. The calvarium is intact. The globes are intact and the visualized sinuse s are clear. Cervical spine is visualized in its entirety from C1 through upper thoracic levels and redemonstrates slight dextroconvex scoliotic or curvature positioning without evidence of acute fracture or disloca tion. Prevertebral soft tissue appears within normal limits. The C1-C2 articulation is within lindsey l limits on the coronal images. Stable slight grade 1 retrolisthesis C5 on C6. Vertebral body height s are maintained. [id number] multilevel anterior spurring in the mid to lower cervical spine re demonstrated. Spinal canal grossly preserved. Axial images demonstrate left paracentral disc protrusion effacing at the lateral thecal sac C6-C7 le konrad on axial image 65. Thyroid gland shows greater than 1 cm nodule mid to lower pole level right thy roid lobe coronal image 30 slightly more prominent from prior. Nonemergent thyroid ultrasound follow- up advised. Lung apices show no pneumothorax. IMPRESSION: 1. There is no acute fracture or dislocation evident in the cervical spine. 2. No acute intracranial hemorrhage or midline shift is seen. New [id number] size right pariet al scalp acute hematoma and laceration.
[2020-08-24 11:50] LABS: Appearance,Urine Cloudy (Clear); Bacteria,Urine Rare /hpf; Bilirubin,Urine Negative (Negative); Blood,Urine Negative (Negative); Calcium Oxalate Crystals,Urine Rare /hpf; Color,Urine Yellow; Glucose,Urine (UA) 2+ (Negative); Hyaline Casts,Urine 45 /lpf (0-2); Leukocyte Esterase,Urine Trace (Negative); Mucus,Urine Few /hpf; Nitrite,Urine Negative (Negative); PH, Urine 6.5 (5.0-8.0); Protein,Urine Trace (Negative); RBC,Urine 1 /hpf (0-5); Specific Gravity,Urine 1.017 (1.001-1.035); Squamous Epithelial Cell,Urine 9 /hpf (0-4); WBC,Urine 4 /hpf (0-5)
[2020-08-24 12:19] LABS: Ketones,Urine 2+ (Negative)
--- NOTE | 2020-08-24 13:12 | CT ---
EXAMINATION TYPE: CT chest angio for PE DATE OF EXAM: 08/24/2020 COMPARISON: Chest x-ray 12/14/2019 HISTORY: Syncope, tachycardia CT DLP: 233.1 mGycm Automated exposure control for dose reduction was used. CONTRAST: CT Chest for pulmonary embolism performed with without and with IV Contrast, patient injected with 10 0 ml mL of Isovue 370. Three-dimensional reconstructions performed on an ultrasound workstation. FINDINGS: LUNGS: The lungs are grossly clear, there is no concerning parenchymal mass or nodule identified. T here is no pleural effusion or pneumothorax seen. The tracheobronchial tree is patent. MEDIASTINUM: There is satisfactory enhancement of the pulmonary artery and its branches, there is no CT evidence for pulmonary embolism. There are no greater than 1 cm hilar or mediastinal lymph nodes. No pericardial effusion is seen. AORTA: No additional significant abnormality is seen. OTHER: Old healed posterior left 10th rib fracture is noted. Nonobstructive calculus at the upper po le left kidney measures only 4 mm.. IMPRESSION: No pulmonary embolism. Nonobstructive left renal calculus.
[2020-08-24] MEDS ORDERED: LORazepam 2 MG/ML INJ IV PRN ×3 (13:32)
[2020-08-24] MEDS ORDERED: THIAMINE 100 MG/ML 2 ML VIAL IM STA (13:32)
[2020-08-24] MEDS ORDERED: BUTALB/APAP/CAFF 50-325-40MG TAB PO PRN (13:59)
[2020-08-24] MEDS ORDERED: LORATADINE 10 MG TAB PO PRN (13:59)
[2020-08-24] MEDS ORDERED: NALOXONE 0.4 MG/ML 1 ML VIAL IV PRN (14:43)
[2020-08-24] MEDS: SODIUM CHLORIDE 0.9% 1,000 ML IV SCH (15:45)
--- NOTE | 2020-08-24 15:46 | P.HPIM ---
History of Present Illness This is a pleasant 55-year-old female came in for a syncopal episode. Seizure disorder but patient denies any known seizure. Patient the lives by herself was urinating when she got up she felt lightheaded and doesn't know anything after that. Patient denied any loss of bowel or bladder continence time biting. Patient last seizure was in 2010 patient is presently not on any antiseizure medications. Although static vitals will be obtained patient is mildly hyponatremic. Patient does have alcohol abuse history but patient states she doesn't drink much and had last drink was 2 days ago. She does have history of migraines and patient is on verapamil for that. Patient had a laceration on the scalp which is being sutured right now. Review of Systems REVIEW OF SYSTEMS: CONSTITUTIONAL: No fever, no malaise, no fatigue. HEENT: No recent visual problems or hearing problems. Denied any sore throat. CARDIOVASCULAR: No chest pain, orthopnea, PND, no palpitations. PULMONARY: No shortness of breath, no cough, no hemoptysis. GASTROINTESTINAL: No diarrhea, no nausea, no vomiting, no abdominal pain. NEUROLOGICAL: No headaches, no weakness, no numbness. HEMATOLOGICAL: Denies any bleeding or petechiae. GENITOURINARY: Denies any burning micturition, frequency, or urgency. MUSCULOSKELETAL/RHEUMATOLOGICAL: Denies any joint pain, swelling, or any muscle pain. ENDOCRINE: Denies any polyuria or polydipsia. The rest of the 14-point review of systems is negative. Past Medical History Past Medical History: Diabetes Mellitus, Seizure Disorder Additional Past Medical History / Comment(s): IBS History of Any Multi-Drug Resistant Organisms: None Reported Past Surgical History: Tubal Ligation Past Psychological History: Anxiety, Depression Smoking Status: Current every day smoker Past Alcohol Use History: Occasional Past Drug Use History: None Reported Medications and Allergies Home Medications Medication Instructions Recorded Confirmed Type Butalb/Acetaminophen/Caffeine 1 cap PO Q6H PRN 08/24/20 08/24/20 History [Esgic 50-325-40 Capsule] Cetirizine HCl [Zyrtec] 10 mg PO DAILY PRN 08/24/20 08/24/20 History Montelukast [Singulair] 10 mg PO HS 08/24/20 08/24/20 History Multivitamins, Thera [Multivitamin 1 tab PO DAILY 08/24/20 08/24/20 History (formulary)] Verapamil HCl [Verapamil ER] 120 mg PO DAILY 08/24/20 08/24/20 History Vitamin C/Biotin [Hair, Skin and 1 tab PO DAILY 08/24/20 08/24/20 History Nails] Allergies Allergy/AdvReac Type Severity Reaction Status Date / Time Penicillins Allergy Unknown Verified 08/24/20 10:43 Physical Exam Vitals: Vital Signs Temp Pulse Resp BP Pulse Ox 08/24/20 15:30 84 18 132/85 99 08/24/20 13:45 92 16 127/63 99 08/24/20 10:13 129 H 18 120/73 99 08/24/20 10:06 117 H 18 99 08/24/20 09:49 98.1 F Intake and Output 08/24/20 08/24/20 08/24/20 06:59 14:59 22:59 Other: Weight 48.081 kg PHYSICAL EXAMINATION: GENERAL: The patient is alert and oriented x3, not in any acute distress. Well developed, well nourished. HEENT: Pupils are round and equally reacting to light. EOMI. No scleral icterus. No conjunctival pallor. Normocephalic, atraumatic. No pharyngeal erythema. No t hyromegaly. CARDIOVASCULAR: S1 and S2 present. No murmurs, rubs, or gallops. PULMONARY: Chest is clear to auscultation, no wheezing or crackles. ABDOMEN: Soft, nontender, nondistended, normoactive bowel sounds. No palpable organomegaly. MUSCULOSKELETAL: No joint swelling or deformity. EXTREMITIES: No cyanosis, clubbing, or pedal edema. NEUROLOGICAL: Gross neurological examination did not reveal any focal deficits. SKIN: Laceration on the right side and posterior scalp Results CBC & Chem 7: 08/24/20 10:26 08/24/20 10:26 Labs: Abnormal Lab Results - Last 24 Hours (Table) 08/24/20 08/24/20 08/24/20 Range/Units 10:05 10: 10: RBC 2.68 L (3.80-5.40) m/uL Hgb 9.7 L (11.4-16.0) gm/dL Hct 28.7 L (34.0-46.0) % MCV 107.1 H (80.0-100.0) fL MCH 36.3 H (25.0-35.0) pg Plt Count 130 L (150-450) k/uL Neutrophils # 7.9 H (1.3-7.7) k/uL Lymphocytes # 0.8 L (1.0-4.8) k/uL APTT 18.4 L (22.0-30.0) sec D-Dimer 0.69 H (<0.60) mg/L FEU Sodium (137-145) mmol/L BUN (7-17) mg/dL Glucose (74-99) mg/dL POC Glucose (mg/dL) 289 H (75-99) mg/dL AST (14-36) U/L Urine Appearance (Clear) Urine Protein (Negative) Urine Glucose (UA) (Negative) Urine Ketones (Negative) Ur Leukocyte Esterase (Negative) Ur Squamous Epith Cells (0-4) /hpf Calcium Oxalate Crystal (None) /hpf Urine Bacteria (None) /hpf Hyaline Casts (0-2) /lpf Urine Mucus (None) /hpf 08/24/20 08/24/20 Range/Units 10:26 10:26 RBC (3.80-5.40) m/uL Hgb (11.4-16.0) gm/dL Hct (34.0-46.0) % MCV (80.0-100.0) fL MCH (25.0-35.0) pg Plt Count (150-450) k/uL Neutrophils # (1.3-7.7) k/uL Lymphocytes # (1.0-4.8) k/uL APTT (22.0-30.0) sec D-Dimer (<0.60) mg/L FEU Sodium 132 L (137-145) mmol/L BUN 21 H (7-17) mg/dL Glucose 243 H (74-99) mg/dL POC Glucose (mg/dL) (75-99) mg/dL AST 39 H (14-36) U/L Urine Appearance Cloudy H (Clear) Urine Protein Trace H (Negative) Urine Glucose (UA) 2+ H (Negative) Urine Ketones 2+ H (Negative) Ur Leukocyte Esterase Trace H (Negative) Ur Squamous Epith Cells 9 H (0-4) /hpf Calcium Oxalate Crystal Rare H (None) /hpf Urine Bacteria Rare H (None) /hpf Hyaline Casts 45 H (0-2) /lpf Urine Mucus Few H (None) /hpf Assessment and Plan Plan: -Syncope: Patient appears to micturition syncope there may be a competent of intravascular depletion patient does have low sodium which can be secondary to hypovolemia beer potomania. Patient will be continued on IV fluids patient wanted on telemetry. I'll also get an EEG and echocardiac gram. -Alcohol abuse history: Counseling was provided do not believe patient will have withdrawals patient last drink was more than 2 days ago and as per the patient patient cut down on her drinking. -Seizure disorder presently not on any antiseizure medications next and heparin depression - nicotine abuse: Counseling was provided -DVT prophylaxis early ambulation
[2020-08-24] MEDS ORDERED: INFLUENZA VACCINE (6 MOS+) 60 MCG/0.5 ML SYRINGE IM ONE (16:38)
[2020-08-24] MEDS: THIAMINE 100 MG TAB PO SCH (17:13)
[2020-08-25 05:42] VITALS: RESP 16
[2020-08-25] MEDS: THIAMINE 100 MG TAB PO SCH ×2 (08:44→17:19)
[2020-08-25] MEDS: SODIUM CHLORIDE 0.9% 1,000 ML IV SCH ×3 (08:45→12:31)
[2020-08-25] MEDS ORDERED: VERAPAMIL SR 120 MG TABLET.ER PO SCH (09:00)
[2020-08-25 09:18] LABS: African American GFR (CKD) >90 (>60 ml/min/1.73 sqM); Anion Gap 1 mmol/L; Blood Urea Nitrogen 10 mg/dL (7-17); Calcium 8.8 mg/dL (8.4-10.2); Carbon Dioxide 30 mmol/L (22-30); Chloride 102 mmol/L (98-107); Glucose 103 mg/dL (74-99); Non-African American GFR(CKD) >90 (>60 ml/min/1.73 sqM); Potassium 3.3 mmol/L (3.5-5.1); Sodium 133 mmol/L (137-145)
[2020-08-25 11:33] LABS: Glucose,Whole Blood 108 mg/dL (75-99)
[2020-08-25 12:18] VITALS: BMI 19.3
--- NOTE | 2020-08-25 14:26 | P.DS ---
Providers Date of admission: 08/24/20 15:00 Attending physician: Madi Shaw Primary care physician: Jim Sher [facility] Course: 55-year-old female came in for a syncopal episode. Seizure disorder but patient denies any known seizure. Patient the lives by herself was urinating when she got up she felt lightheaded and doesn't know anything after that. Patient denied any loss of bowel or bladder continence time biting. Patient last seizure was in 2010 patient is presently not on any antiseizure medications. Although static vitals will be obtained patient is mildly hyponatremic. Patient does have alcohol abuse history but patient states she d oesn't drink much and had last drink was 2 days ago. She does have history of migraines and patient is on verapamil for that. Patient had a laceration on the scalp which is being sutured right now. 08/25/2020 Patient is micturition syncope rule out any cardiac arrhythmias with telemetry monitoring. Echocardiogram is pending of the echocardiogram didn't show any significant abnormalities patient will be discharged today unfortunately we're unable to obtain EEG this can be obtained as an outpatient patient is feeling better patient received sutures to the scalp although he she is good with basic recent considering the location of going into her arm Keflex for 3-5 days along with topical antiseptic. Patient has a symptomatic bacteriuria will not require any antibiotics patient's urine sample was contaminated urine sample. PHYSICAL EXAMINATION: GENERAL: The patient is alert and oriented x3, not in any acute distress. Well developed, well nourished. HEENT: Pupils are round and equally reacting to light. EOMI. No scleral icterus. No conjunctival pallor. Normocephalic, atraumatic. No pharyngeal erythema. No thyromegaly. CARDIOVASCULAR: S1 and S2 present. No murmurs, rubs, or gallops. PULMONARY: Chest is clear to auscultation, no wheezing or crackles. ABDOMEN: Soft, nontender, nondistended, normoactive bowel sounds. No palpable organomegaly. MUSCULOSKELETAL: No joint swelling or deformity. EXTREMITIES: No cyanosis, clubbing, or pedal edema. NEUROLOGICAL: Gross neurological examination did not reveal any focal deficits. SKIN: No rashes. Assessment and Plan Plan: -Syncope: Patient appears to micturition syncope there may be a competent of intravascular depletion patient does have low sodium which can be secondary to hypovolemia beer potomania. Mild improvement in sensorium with IV fluids. Echogram is pending once we get the results patient will be discharged EEG as an outpatient. Alcohol abuse history: no withdrawals at this time counseling regarding alcohol abuse was provided -Seizure disorder presently not on any antiseizure medications next and heparin depression - nicotine abuse: Counseling was provided Patient Condition at Discharge: Serious Plan - Discharge Summary Discharge Rx Participant: No New Discharge Prescriptions: New Cephalexin [Keflex] 500 mg PO Q8HR 1 Days #20 cap metFORMIN HCL [Glucophage] 500 mg PO BID #30 tab Bacitracin Zinc/Polymyxin B [Bacitracin-Polymyxin Ointment] 1 applic TOPICAL BID #1 tube Continue Multivitamins, Thera [Multivitamin (formulary)] 1 tab PO DAILY Montelukast [Singulair] 10 mg PO HS Cetirizine HCl [Zyrtec] 10 mg PO DAILY PRN PRN Reason: Allergy Symptoms Butalb/Acetaminophen/Caffeine [Esgic 50-325-40 Capsule] 1 cap PO Q6H PRN PRN Reason: Migraine Headache Verapamil HCl [Verapamil ER] 120 mg PO DAILY Vitamin C/Biotin [Hair, Skin and Nails] 1 tab PO DAILY Discharge Medication List Butalb/Acetaminophen/Caffeine [Esgic 50-325-40 Capsule] 1 cap PO Q6H PRN 08/24/20 [History] Cetirizine HCl [Zyrtec] 10 mg PO DAILY PRN 08/24/20 [History] Montelukast [Singulair] 10 mg PO HS 08/24/20 [History] Multivitamins, Thera [Multivitamin (formulary)] 1 tab PO DAILY 08/24/20 [History] Verapamil HCl [Verapamil ER] 120 mg PO DAILY 08/24/20 [History] Vitamin C/Biotin [Hair, Skin and Nails] 1 tab PO DAILY 08/24/20 [History] Bacitracin Zinc/Polymyxin B [Bacitracin-Polymyxin Ointment] 1 applic TOPICAL BID #1 tube 08/25/20 [Rx] Cephalexin [Keflex] 500 mg PO Q8HR 1 Days #20 cap 08/25/20 [Rx] metFORMIN HCL [Glucophage] 500 mg PO BID #30 tab 08/25/20 [Rx] Follow up Appointment(s)/Referral(s): Oliva Fernandez MD [Primary Care Provider] - 3 Days Discharge Disposition: HOME SELF-CARE
[2020-08-25 15:42] VITALS: BP 114/77; PULSE 105; TEMP 98.4
[2020-08-25] MEDS ORDERED: Potassium Replacement Protocol 1 EACH MISC MISCELLANE PRN (16:14)
[2020-08-25] MEDS: POTASSIUM CHLORIDE ER 20 MEQ TAB.ER PO SCH ×2 (16:26→17:19)
[2020-08-25 16:34] LABS: Glucose,Whole Blood 181 mg/dL (75-99)
--- NOTE | 2020-08-25 18:55 | ECHOF ---
Referral Reason:Syncope MEASUREMENTS -------- HEIGHT: 157.5 cm WEIGHT: 48.1 kg BP: 127/63 RVIDd: 2.1 cm (< 3.3) IVSd: 0.8 cm (0.6 - 1.1) LVIDd: 4.0 cm (3.9 - 5.3) LVPWd: 0.8 cm (0.6 - 1.1) IVSs: 1.4 cm LVIDs: 2.6 cm LVPWs: 1.2 cm LA Diam: 2.4 cm (2.7 - 3.8) Ao Diam: 2.8 cm (2.0 - 3.7) AV Cusp: 1.8 cm (1.5 - 2.6) MV EXCURSION: 16.226 mm (> 18.000) MV EF SLOPE: 95 mm/s (70 - 150) EPSS: 0.5 cm MV E Quinton: 0.75 m/s MV DecT: 210 ms MV A Quinton: 0.87 m/s MV E/A Ratio: 0.86 RAP: 5.00 mmHg RVSP: 23.37 mmHg FINDINGS -------- Sinus rhythm. This was a technically good study. The left ventricular size is normal. Left ventricular wall thickness is normal. Overall left vent ricular systolic function is normal with, an EF between 60 - 65 %. The right ventricle is normal in size. The left atrial size is normal. The right atrium is normal in size. Interatrial and interventricular septum intact. The aortic valve is trileaflet and appears structurally normal. There is trace to mild mitral regurgitation. Mild tricuspid regurgitation present. Right ventricular systolic pressure is normal at < 35 mmHg. There is no pulmonic regurgitation present. The aortic root size is normal. Normal inferior vena cava with normal inspiratory collapse consistent with estimated right atrial pre ssure of 5 mmHg. There is no pericardial effusion. CONCLUSIONS -------- 1. The left ventricular size is normal. 2. Left ventricular wall thickness is normal. 3. Overall left ventricular systolic function is normal with, an EF between 60 - 65 %. 4. The aortic valve is trileaflet and appears structurally normal. 5. There is trace to mild mitral regurgitation. 6. Mild tricuspid regurgitation present. 7. There is no pericardial effusion. LEG BREAKER: Loretta Mondragon RADHA
[2020-08-30 13:32] LABS: Hemoglobin A1C 4.6
== END 2020-08-25 17:30 | disposition home or self-care (01) ==
LOC: EC 09:47 → 1SOBS 15:00
PROVIDERS: ADMIT Internal Medicine; ATTEND Internal Medicine
DX: R55 Syncope and collapse (principal); S01.01XA Laceration without foreign body of scalp, initial encounter; E87.1 Hypo-osmolality and hyponatremia; E86.0 Dehydration; R79.89 Other specified abnormal findings of blood chemistry; M54.2 Cervicalgia; F10.10 Alcohol abuse, uncomplicated; G40.909 Epilepsy, unspecified, not intractable, without status epilepticus; E11.9 Type 2 diabetes mellitus without complications; K58.9 Irritable bowel syndrome, unspecified; R82.71 Bacteriuria; F41.9 Anxiety disorder, unspecified; F32.9 Major depressive disorder, single episode, unspecified; F17.200 Nicotine dependence, unspecified, uncomplicated; W19.XXXA Unspecified fall, initial encounter; Z79.899 Other long term (current) drug therapy; Z23 Encounter for immunization; Z88.0 Allergy status to penicillin; Z98.51 Tubal ligation status
CPT/HCPCS: 12002; 96360; 99285; 36415; 93005; 93306; 85379; 80053; 80048; 84484; 85025; 85610; 85730; 81001; 83036; 72125; 70450; 71275; 90686; G0378 ×2; G0008; Q9967

== ENCOUNTER → 2020-12-21 | Outpatient (CLI) | payer OTHER ==
--- NOTE | 2020-12-22 14:04 | MM ---
Reason for exam: screening (asymptomatic). Last mammogram was performed 1 year and 2 months ago. History: Patient is postmenopausal. Family history of breast cancer in mother at age 30. Benign left mammotome panel of the left breast, May 01, 2009. Left Mammotome Panel of the left breast, March 31, 2009. Benign left mammotome panel of the left breast, March 31, 2009. Took hormonal contraceptives for 3 years beginning at age 16. Physical Findings: A clinical breast exam by your physician is recommended on an annual basis and results should be correlated with mammographic findings. MG 3D Screening Mammo W/Cad Bilateral CC and MLO view(s) were taken. Prior study comparison: October 29, 2019, bilateral MG 3d work up w/cad JANETTE. October 01, 2019, bilateral MG screening mammo w CAD. The breast tissue is heterogeneously dense. This may lower the sensitivity of mammography. There is no discrete abnormality. No significant changes when compared with prior studies. ASSESSMENT: Negative, BI-RAD 1 RECOMMENDATION: Routine screening mammogram of both breasts in 1 year.
== END | disposition home or self-care (01) ==
LOC: RADMAMWWP 14:32
PROVIDERS: ATTEND Internal Medicine
DX: Z12.31 Encounter for screening mammogram for malignant neoplasm of breast (principal)
CPT/HCPCS: 77063; 77067

== ENCOUNTER 2021-06-06 19:51 | Emergency (ER) | payer OTHER ==
[2021-06-06 20:05] VITALS: RESP 20; TEMP 97.8
--- NOTE | 2021-06-06 20:55 | ED ---
General Adult HPI - General Chief complaint: Syncope Stated complaint: Fall Time Seen by Provider: 06/06/21 20:00 Source: patient, EMS Mode of arrival: EMS - History of Present Illness Initial comments: 56-year-old female with past history of diabetes, seizure disorder, syncope who presents the emergency department after she had a syncopal episode. Patient states she was sitting on a concrete wall watching the parade when she attempted to stand up and passed out. She fell to the right side and hit the back of her head on the concrete wall. She was only out for several seconds. She admits to a history of syncope. She was hospitalized at the end of last year for similar complaints states that she had a very large workup. He denies having any symptoms prior to passing out episode. No headaches or visual changes. Denies any chest pain or shortness of breath. No nausea or vomiting. She denies being on any blood thinners. She denies any neck pain. No numbness, tingling or weakness in her extremities. 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, precipitating or modifying factors - Related Data Home Medications Medication Instructions Recorded Confirmed Butalb/Acetaminophen/Caffeine 1 cap PO Q6H PRN 08/24/20 06/06/21 [Esgic 50-325-40 Capsule] Verapamil HCl [Verapamil ER] 120 mg PO DAILY 08/24/20 06/06/21 Ibuprofen [Motrin Ib] 600 mg PO Q8H PRN 06/06/21 06/06/21 Meclizine HCl 12.5 - 25 mg PO TID PRN 06/06/21 06/06/21 tiZANidine HCL 4 mg PO TID PRN 06/06/21 06/06/21 Allergies Allergy/AdvReac Type Severity Reaction Status Date / Time Penicillins Allergy Unknown Verified 08/24/20 10:43 Review of Systems ROS Statement: Those systems with pertinent positive or pertinent negative responses have been documented in the HPI. ROS Other: All systems not noted in ROS Statement are negative. 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 History of Any Multi-Drug Resistant Organisms: None Reported Past Surgical History: Breast Surgery, Tubal Ligation Additional Past Surgical History / Comment(s): Cervical conization for pre- cancer, bilateral breast benign lumpectomies/has markers, colonoscopy. Additional Past Anesthesia/Blood Transfusion Reaction / Comment(s): Pt states she has a fear of anesthesia and wakes up trying to get up. Past Psychological History: Anxiety, Depression Smoking Status: Current every day smoker Past Alcohol Use History: Occasional Past Drug Use History: None Reported - Past Family History Father Family Medical History: CVA/TIA Additional Family Medical History / Comment(s): Father had a cva and . Mother Family Medical History: Cancer Additional Family Medical History / Comment(s): Mother of brain cancer at the age of 66 yrs. General Exam General appearance: alert, in no apparent distress Head exam: Present: normocephalic, other (laceration right occiput - 5 x 1 cm. No underlying bony fracture. No active bleeding. ) Eye exam: Present: normal appearance, PERRL, EOMI. Absent: scleral icterus, conjunctival injection, periorbital swelling ENT exam: Present: normal exam, mucous membranes moist Neck exam: Present: normal inspection. Absent: tenderness, meningismus, lymphadenopathy Respiratory exam: Present: normal lung sounds bilaterally. Absent: respiratory distress, wheezes, rales, rhonchi, stridor Cardiovascular Exam: Present: regular rate, normal rhythm, normal heart sounds. Absent: systolic murmur, diastolic murmur, rubs, gallop, clicks GI/Abdominal exam: Present: soft, normal bowel sounds. Absent: distended, tenderness, guarding, rebound, rigid Extremities exam: Present: normal inspection, full ROM, normal capillary refill. Absent: tenderness, pedal edema, joint swelling, calf tenderness Back exam: Present: normal inspection Neurological exam: Present: alert, oriented X3, CN II-XII intact Psychiatric exam: Present: normal affect, normal mood Skin exam: Present: warm, dry, intact, normal color. Absent: rash Course Vital Signs 06/06/21 06/06/21 06/06/21 19:56 20:30 21:04 Temperature 97.8 F Pulse Rate 82 Respiratory 20 Rate Blood Pressure 120/85 115/84 O2 Sat by Pulse 98 Oximetry 06/06/21 06/06/21 21:36 22:28 Temperature Pulse Rate 97 96 Respiratory 20 20 Rate Blood Pressure 120/85 120/85 O2 Sat by Pulse 100 100 Oximetry EKG Findings - EKG Comments: EKG Findings:: EKG demonstrates normal sinus rhythm with a ventricular rate of 88. OH interval 122. QRS 82. QTC of 493. No acute ST segment elevation or depression Procedures - Laceration Laceration #1 Consent Obtained: verbal consent Indication: laceration Site: scalp Size (cm): 5 Description: linear Depth: simple, single layer Patient Tolerated Procedure: well, no complications Additional Comments: 3 jan Medical Decision Making - Medical Decision Making Upon arrival patient's placed into room 3. A thorough history and physical exam was performed. IV is established laboratory studies were conducted. I did cleanse the patient's wound and it is approximated with 3 jan. Laboratory studies are reviewed. CT of the patient's brain and cervical spine was performed which demonstrates no intracranial bleed. No fractures and the patient's neck. Chest x-ray demonstrates no acute findings. I discussed results patient. Did recommend hospitalization for cardiac monitoring however patient is adamant that she will not stay. I did discuss the risks of leaving. Patient understood. I asked the patient to return to the emergency room for any new or worsening symptoms. She needs to follow up with her PCP in 1-2 days without fail. Sutures must be removed in 5 days. The patient was discharged home in stable condition. - Lab Data Result diagrams: 06/06/21 20:41 06/06/21 20:41 Lab Results 06/06/21 06/06/21 06/06/21 Range/Units 20:41 20:41 20:41 WBC 4.0 (3.8-10.6) k/uL RBC 3.82 (3.80-5.40) m/uL Hgb 13.6 (11.4-16.0) gm/dL Hct 41.4 (34.0-46.0) % MCV 108.3 H (80.0-100.0) fL MCH 35.7 H (25.0-35.0) pg MCHC 33.0 (31.0-37.0) g/dL RDW 14.5 (11.5-15.5) % Plt Count 143 L (150-450) k/uL MPV 7.9 Neutrophils % 49 % Lymphocytes % 40 % Monocytes % 5 % Eosinophils % 1 % Basophils % 1 % Neutrophils # 2.0 (1.3-7.7) k/uL Lymphocytes # 1.6 (1.0-4.8) k/uL Monocytes # 0.2 (0-1.0) k/uL Eosinophils # 0.0 (0-0.7) k/uL Basophils # 0.0 (0-0.2) k/uL Macrocytosis Marked A PT 10.6 (9.0-12.0) sec INR 1.0 (<1.2) APTT 23.3 (22.0-30.0) sec Sodium (137-145) mmol/L Potassium (3.5-5.1) mmol/L Chloride (98-107) mmol/L Carbon Dioxide (22-30) mmol/L Anion Gap mmol/L BUN (7-17) mg/dL Creatinine (0.52-1.04) mg/dL Est GFR (CKD-EPI)AfAm (>60 ml/min/1.73 sqM) Est GFR (CKD-EPI)NonAf (>60 ml/min/1.73 sqM) Glucose (74-99) mg/dL Calcium (8.4-10.2) mg/dL Total Bilirubin (0.2-1.3) mg/dL AST (14-36) U/L ALT (4-34) U/L Alkaline Phosphatase (38-126) U/L Troponin I (0.000-0.034) ng/mL Total Protein (6.3-8.2) g/dL Albumin (3.5-5.0) g/dL Urine Color Light Yellow Urine Appearance Clear (Clear) Urine pH 5.0 (5.0-8.0) Ur Specific Edwards 1.003 (1.001-1.035) Urine Protein Negative (Negative) Urine Glucose (UA) Negative (Negative) Urine Ketones Negative (Negative) Urine Blood Negative (Negative) Urine Nitrite Negative (Negative) Urine Bilirubin Negative (Negative) Urine Urobilinogen <2.0 (<2.0) mg/dL Ur Leukocyte Esterase Negative (Negative) 06/06/21 06/06/21 Range/Units 20:41 20:41 WBC (3.8-10.6) k/uL RBC (3.80-5.40) m/uL Hgb (11.4-16.0) gm/dL Hct (34.0-46.0) % MCV (80.0-100.0) fL MCH (25.0-35.0) pg MCHC (31.0-37.0) g/dL RDW (11.5-15.5) % Plt Count (150-450) k/uL MPV Neutrophils % % Lymphocytes % % Monocytes % % Eosinophils % % Basophils % % Neutrophils # (1.3-7.7) k/uL Lymphocytes # (1.0-4.8) k/uL Monocytes # (0-1.0) k/uL Eosinophils # (0-0.7) k/uL Basophils # (0-0.2) k/uL Macrocytosis PT (9.0-12.0) sec INR (<1.2) APTT (22.0-30.0) sec Sodium 138 (137-145) mmol/L Potassium 3.7 (3.5-5.1) mmol/L Chloride 97 L (98-107) mmol/L Carbon Dioxide 26 (22-30) mmol/L Anion Gap 15 mmol/L BUN 6 L (7-17) mg/dL Creatinine 0.65 (0.52-1.04) mg/dL Est GFR (CKD-EPI)AfAm >90 (>60 ml/min/1.73 sqM) Est GFR (CKD-EPI)NonAf >90 (>60 ml/min/1.73 sqM) Glucose 90 (74-99) mg/dL Calcium 9.4 (8.4-10.2) mg/dL Total Bilirubin 0.6 (0.2-1.3) mg/dL AST 119 H (14-36) U/L ALT 33 (4-34) U/L Alkaline Phosphatase 95 (38-126) U/L Troponin I <0.012 (0.000-0.034) ng/mL Total Protein 7.6 (6.3-8.2) g/dL Albumin 5.0 (3.5-5.0) g/dL Urine Color Urine Appearance (Clear) Urine pH (5.0-8.0) Ur Specific Edwards (1.001-1.035) Urine Protein (Negative) Urine Glucose (UA) (Negative) Urine Ketones (Negative) Urine Blood (Negative) Urine Nitrite (Negative) Urine Bilirubin (Negative) Urine Urobilinogen (<2.0) mg/dL Ur Leukocyte Esterase (Negative) Disposition Clinical Impression: Syncope, Concussion with loss of consciousness, Scalp laceration Disposition: HOME SELF-CARE Condition: Stable Instructions (If sedation given, give patient instructions): Syncope (ED), Staple Care (ED) Additional Instructions: I recommended hospital admission. Please follow up with your PCP in 2-4 days. Please have your jan removed in 5-7 days. Return to the ED for any new or worsening symptoms. Is patient prescribed a controlled substance at d/c from ED?: No Referrals: Oliva Fernandez MD [Primary Care Provider] - 1-2 days Time of Disposition: 22:14
[2021-06-06 20:56] LABS: Appearance,Urine Clear (Clear); Basophils % (A) 1 %; Bilirubin,Urine Negative (Negative); Blood,Urine Negative (Negative); Color,Urine Light Yellow; Eosinophils % (A) 1 %; Glucose,Urine (UA) Negative (Negative); HCT 41.4 % (34.0-46.0); HGB 13.6 gm/dL (11.4-16.0); Ketones,Urine Negative (Negative); Leukocyte Esterase,Urine Negative (Negative); Lymphocytes # (A) 1.6 k/uL (1.0-4.8); Lymphocytes % (A) 40 %; MCH 35.7 pg (25.0-35.0); Macrocytosis Marked; Mean Platelet Volume 7.9; Monocytes # (A) 0.2 k/uL (0-1.0); Monocytes % (A) 5 %; Neutrophils % (A) 49 %; Nitrite,Urine Negative (Negative); Platelet Count 143 k/uL (150-450); Protein,Urine Negative (Negative); RBC 3.82 m/uL (3.80-5.40); RDW 14.5 % (11.5-15.5); Specific Gravity,Urine 1.003 (1.001-1.035); Urobilinogen,Urine <2.0 mg/dL (<2.0)
[2021-06-06 20:59] LABS: MCV 108.3 fL (80.0-100.0)
[2021-06-06 21:04] LABS: ALT 33 U/L (4-34); AST 119 U/L (14-36); African American GFR (CKD) >90 (>60 ml/min/1.73 sqM); Alkaline Phosphatase 95 U/L (38-126); Anion Gap 15 mmol/L; Blood Urea Nitrogen 6 mg/dL (7-17); Calcium 9.4 mg/dL (8.4-10.2); Carbon Dioxide 26 mmol/L (22-30); Chloride 97 mmol/L (98-107); Glucose 90 mg/dL (74-99); Non-African American GFR(CKD) >90 (>60 ml/min/1.73 sqM); Partial Thromboplastin Time 23.3 sec (22.0-30.0); Potassium 3.7 mmol/L (3.5-5.1); Prothrombin Time 10.6 sec (9.0-12.0); Sodium 138 mmol/L (137-145); Total Bilirubin 0.6 mg/dL (0.2-1.3); Total Protein 7.6 g/dL (6.3-8.2)
--- NOTE | 2021-06-06 21:06 | XR ---
EXAMINATION TYPE: XR chest 2V DATE OF EXAM: 06/06/2021 COMPARISON: 12/14/2019 HISTORY: Syncope TECHNIQUE: FINDINGS: Heart and mediastinum are normal. Lungs are clear. Diaphragm is normal. Bony thorax is inta ct. There are chest leads. IMPRESSION: Normal chest. No change.
--- NOTE | 2021-06-06 21:15 | CT ---
EXAMINATION TYPE: CT brain karloine wo con DATE OF EXAM: 06/06/2021 COMPARISON: 08/24/2020 HISTORY: Syncope, head trauma. Hx syncopal episodes. CT DLP: 1289.1 mGycm Automated exposure control for dose reduction was used. There is some cerebral atrophy. There is no mass effect nor midline shift. There is no sign of intrac ranial hemorrhage. The calvarium is intact. Skull base is intact. There is normal aeration of the mas toid sinuses. There is 1.6 cm rounded calcification adjacent to the right temporal bone in the anteri or right sylvian fissure. This is consistent with meningioma. Cervical vertebra have normal alignment. Posterior elements are intact. There is mild facet arthropat hy. There is degenerative mild spurring of the endplates. There is no compression fracture. There is slight cervical levoscoliosis. IMPRESSION: Cerebral atrophy. No acute intracranial abnormality. Extra-axial calcified mass consistent with menin gioma at the right temporal bone. Unchanged. Minor degenerative changes in the cervical spine. No fra cture. No change.
[2021-06-06 21:36] VITALS: BP 120/85
[2021-06-06 22:30] VITALS: PULSE 96
== END 2021-06-06 22:30 | disposition home or self-care (01) ==
LOC: EC 19:51
DX: S06.0X9A Concussion with loss of consciousness of unspecified duration, initial encounter (principal); S01.01XA Laceration without foreign body of scalp, initial encounter; E11.9 Type 2 diabetes mellitus without complications; G40.909 Epilepsy, unspecified, not intractable, without status epilepticus; F17.200 Nicotine dependence, unspecified, uncomplicated; G43.909 Migraine, unspecified, not intractable, without status migrainosus; K58.9 Irritable bowel syndrome, unspecified; F32.9 Major depressive disorder, single episode, unspecified; F41.9 Anxiety disorder, unspecified; Z87.440 Personal history of urinary (tract) infections; Z79.1 Long term (current) use of non-steroidal anti-inflammatories (NSAID); Z88.0 Allergy status to penicillin; W22.01XA Walked into wall, initial encounter; W22.09XA Striking against other stationary object, initial encounter
CPT/HCPCS: 12002; 36415; 70450; 71046; 72125; 80053; 81003; 84484; 85025; 85610; 85730; 93005; 99285

== ENCOUNTER 2021-09-11 10:58 | Emergency (ER) | payer OTHER ==
[2021-09-11 11:03] VITALS: TEMP 97.6
--- NOTE | 2021-09-11 11:42 | ED ---
General Adult HPI - General Chief complaint: Fall Stated complaint: fall Time Seen by Provider: 09/11/21 11:09 Source: patient, EMS, RN notes reviewed, old records reviewed Mode of arrival: EMS Limitations: no limitations - History of Present Illness Initial comments: 56-year-old female presents status post fall. She admits to the drinking alcohol. She states she does drink ROM and is a heavy drinker. She had fallen in a parking lot of the apartment where she lives. She had an injury to the right knee, right hand, and had complained of some neck pain. She was transported by EMS in a c-collar. There was no specific head injury noted, patient denies loss conscious. She denies anticoagulation. She is complaining mainly of abrasion and pain to the right knee. She states her tetanus is up-to-date. - Related Data Home Medications Medication Instructions Recorded Confirmed Butalb/Acetaminophen/Caffeine 1 cap PO Q6H PRN 08/24/20 09/11/21 [Esgic 50-325-40 Capsule] Verapamil HCl [Verapamil ER] 120 mg PO DAILY 08/24/20 09/11/21 Meclizine HCl 12.5 - 25 mg PO TID PRN 06/06/21 09/11/21 tiZANidine HCL 4 mg PO TID PRN 06/06/21 09/11/21 Fluorometholone 0.1% Ophth Marlene 1 drop BOTH EYES DIRECTED 09/11/21 09/11/21 [Fml] Multivitamins, Thera [Multivitamin 1 tab PO DAILY 09/11/21 09/11/21 (formulary)] Allergies Allergy/AdvReac Type Severity Reaction Status Date / Time Penicillins Allergy Unknown Verified 09/11/21 11:33 Review of Systems ROS Statement: Those systems with pertinent positive or pertinent negative responses have been documented in the HPI. ROS Other: All systems not noted in ROS Statement are negative. Past Medical History Past Medical History: Diabetes Mellitus, Seizure Disorder, Syncope Additional Past Medical History / Comment(s): Diet controlled diabetes, pt states she has drank heavier off and on over her adult years and has been drinking heavier/daily since her brother's recent 2 weeks ago, she believes she may have withdrawal in the past as "shakes", past benign brain tumor and pt states recently found thru MRI an abnormallity R side of her brain and has appt to f/u with [facility] specialist soon, IBS, past seizure pt states r/t stress in 2011, migraines, chronic cervical/low back and bilateral hip pain, past L humerus fracture, UTIs. History of Any Multi-Drug Resistant Organisms: None Reported Past Surgical History: Breast Surgery, Tubal Ligation Additional Past Surgical History / Comment(s): Cervical conization for pre- cancer, bilateral breast benign lumpectomies/has markers, colonoscopy. Additional Past Anesthesia/Blood Transfusion Reaction / Comment(s): Pt states she has a fear of anesthesia and wakes up trying to get up. Past Psychological History: Anxiety, Depression Smoking Status: Current every day smoker Past Alcohol Use History: Occasional Past Drug Use History: None Reported - Past Family History Father Family Medical History: CVA/TIA Additional Family Medical History / Comment(s): Father had a cva and . Mother Family Medical History: Cancer Additional Family Medical History / Comment(s): Mother of brain cancer at the age of 66 yrs. General Exam Limitations: no limitations General appearance: alert, appears intoxicated Head exam: Present: atraumatic, normocephalic Eye exam: Present: normal appearance, PERRL ENT exam: Present: normal exam Neck exam: Present: normal inspection, other (C-collar in place). Absent: tenderness Respiratory exam: Present: normal lung sounds bilaterally. Absent: respiratory distress, wheezes Cardiovascular Exam: Present: regular rate, normal rhythm GI/Abdominal exam: Present: soft. Absent: distended, tenderness, guarding Extremities exam: Present: other (Abrasion to the anterior knee, no deformity, distal pulses intact, abrasion to the base of the fifth digit right hand. No deformity.) Neurological exam: Present: alert, oriented X3, CN II-XII intact. Absent: motor sensory deficit Psychiatric exam: Present: normal affect, normal mood Skin exam: Present: warm, dry Course Vital Signs 09/11/21 11:00 Temperature 97.6 F Pulse Rate 85 Respiratory 16 Rate Blood Pressure 146/125 O2 Sat by Pulse 98 Oximetry - Reevaluation(s) Reevaluation #1: 09/11/21 14:20 Patient reevaluated, she is ambulatory without unsteady gait, she is able to eat and drink in the emergency department. Clinically sober. Medical Decision Making - Medical Decision Making 56-year-old female with fall, alcohol intoxication, abrasion to the right hand and right knee. X-rays performed negative for acute bony abnormality or traumatic injury. CT brain negative for intracranial hemorrhage or mass effect, read demonstrating known meningioma which is calcified. There is no fracture or dislocation cervical spine. Patient is up ambulatory in the department, eating and drinking. Clinically intoxicated. She will be discharged home in cab. Disposition Clinical Impression: Fall, Abrasion hand, Abrasion of knee, Alcohol intoxication Disposition: HOME SELF-CARE Condition: Fair Instructions (If sedation given, give patient instructions): Abrasion (ED), Fall Prevention (ED) Is patient prescribed a controlled substance at d/c from ED?: No Referrals: Oliva Fernandez MD [Primary Care Provider] - 1-2 days
--- NOTE | 2021-09-11 11:43 | CT ---
EXAMINATION TYPE: CT brain concha wo con DATE OF EXAM: 09/11/2021 COMPARISON: 06/06/2021 HISTORY: 56-year-old female fall, neck pain CT DLP: 1215.9 mGycm Automated exposure control for dose reduction was used. Technique: Examination of the head was done in axial plane without intravenous contrast. Coronal and sagittal reconstructions performed. CT of the cervical spine was obtained in axial plane without intravenous injection of contrast mater ial. Coronal and sagittal reformatted images were obtained from the axial views for evaluation of f ractures, spinal alignment and canal. FINDINGS: Head: There is no evidence of acute intracranial hemorrhage, acute ischemic changes, mass effect, or extra -axial fluid collection. There is no effacement of cerebral sulci or basal subarachnoid cisterns. T here is no hydrocephalus. There is no midline shift. Conner-white matter distinction is preserved. Redemonstrated 1.6 cm partially calcified extra-axial lesion along the right lateral convexity compat ible with a meningioma. Visualized paranasal sinuses are clear. Minimal trapped fluid in inferior most left mastoid air cells . Orbits and globes appear intact. Cerebral cortical atrophy along the bilateral convexities. Cervical spine: No craniocervical junction abnormality, predental space widening, or prevertebral soft tissue swellin g. Disc disease C4-C7. Mild scattered facet and uncovertebral joint arthropathy. Trace grade 1 retrolisthesis C5-C6 is unchanged. Also unchanged is a tiny left paracentral disc osteophyte complex at C5-C6. No sarah canal compromise identified. No acute fracture of the cervical spine. Mild emphysematous change in the visualized upper lungs with biapical pleural-parenchymal scarring. Sagittal and coronal reformatted images confirm above findings. COMBINED IMPRESSION: 1. No acute intracranial abnormality seen. Similar mild to moderate cerebral atrophy and 1.6 cm menin gioma along the right lateral convexity. 2. No acute fracture of the cervical spine. Mild degenerative changes with unchanged grade 1 retrolis thesis C5-C6.
--- NOTE | 2021-09-11 12:27 | XR ---
EXAMINATION TYPE: XR chest 2V DATE OF EXAM: 09/11/2021 COMPARISON: Chest x-ray June 06, 2021 HISTORY: Pain after fall injury. TECHNIQUE: Frontal and lateral views of the chest are obtained. FINDINGS: There is no suspicious focal air space opacity, pleural effusion, or pneumothorax seen. T he cardiac silhouette size is stable and within normal limits. The osseous structures are demineral ized. IMPRESSION: No acute cardiopulmonary process. No significant change from prior.
--- NOTE | 2021-09-11 12:27 | XR ---
EXAMINATION TYPE: XR knee complete RT DATE OF EXAM: 09/11/2021 CLINICAL HISTORY: Pain after fall injury. TECHNIQUE: Three views of the right knee are obtained. COMPARISON: None. FINDINGS: There is no acute fracture/dislocation evident in right knee. Mild tricompartment joint sp radha loss. No significant spurring. The overlying soft tissue appears unremarkable. IMPRESSION: There is no acute fracture or dislocation in the right knee.
--- NOTE | 2021-09-11 12:28 | XR ---
EXAMINATION TYPE: XR hand complete RT DATE OF EXAM: 09/11/2021 CLINICAL HISTORY: Pain after fall injury. TECHNIQUE: Frontal, lateral and oblique images of the right hand are obtained. COMPARISON: None. FINDINGS: There is no acute fracture/dislocation evident in the right hand. Mild to moderate narrowi ng throughout the PIP and DIP joints of the phalanges without significant spurring. The overlying so ft tissue appears unremarkable. IMPRESSION: There is no acute fracture or dislocation in the right hand.
[2021-09-11 14:26] VITALS: BP 106/79; PULSE 90; RESP 18
== END 2021-09-11 14:24 | disposition home or self-care (01) ==
LOC: EC 10:58
DX: S80.211A Abrasion, right knee, initial encounter (principal); S60.511A Abrasion of right hand, initial encounter; F10.129 Alcohol abuse with intoxication, unspecified; E11.9 Type 2 diabetes mellitus without complications; F41.9 Anxiety disorder, unspecified; F32.9 Major depressive disorder, single episode, unspecified; F17.200 Nicotine dependence, unspecified, uncomplicated; Z88.0 Allergy status to penicillin; Z87.440 Personal history of urinary (tract) infections; Z98.51 Tubal ligation status; W18.39XA Other fall on same level, initial encounter; Y90.9 Presence of alcohol in blood, level not specified
CPT/HCPCS: 70450; 71046; 72125; 99284

== ENCOUNTER → 2021-10-09 | Day surgery (SDC) | payer OTHER ==
[2021-10-08 12:52] VITALS: BMI 18.1
[~2021-10-09] MED LIST: SODIUM CHLORIDE 0.9% 1,000 ML IV SCH
[2021-10-09 09:20] VITALS: BP 116/78; RESP 16; TEMP 98.3
[2021-10-09 10:34] VITALS: PULSE 84
--- NOTE | 2021-10-09 11:42 | P.EPPROC ---
- EP Procedure Note Electrophysiology Procedure Note: Diagnosis Syncope Twelve-lead EKG shows Sinus rhythm normal TN narrow QRS normal ST segments Normal QT interval No delta waves, no epsilon waves Tilt table test a protocol Baseline blood pressure 115/72 mmHg Baseline heart rate 84 beats a minute Patient was tilted upright at an angle of 70 per protocol No change in heart rate or blood pressure No symptoms noted She is laid supine at the end of the procedure Impression Normal twelve-lead EKG Normal heart rate and blood pressure response to upright tilting
== END ==
LOC: CATHEP 08:34
PROVIDERS: ATTEND Internal Medicine Clinical Cardiac Electrophysiology
DX: R55 Syncope and collapse (principal); F41.9 Anxiety disorder, unspecified; F32.9 Major depressive disorder, single episode, unspecified; Z20.822 Contact with and (suspected) exposure to COVID-19; Z79.899 Other long term (current) drug therapy; F17.210 Nicotine dependence, cigarettes, uncomplicated
CPT/HCPCS: 87635; 93660

== ENCOUNTER 2021-10-20 09:59 | Emergency (ER) | payer OTHER ==
[2021-10-20 11:43] VITALS: RESP 18; TEMP 98
--- NOTE | 2021-10-20 14:37 | ED ---
General Adult HPI - General Chief complaint: Seizure Stated complaint: Diarrhea Time Seen by Provider: 10/20/21 14:24 Source: patient, RN notes reviewed, old records reviewed Mode of arrival: ambulatory Limitations: no limitations - History of Present Illness Initial comments: This is a well-appearing 56-year-old female that presents to the emergency room with complaints of having a seizure today falling onto her right hip. She is complaining of right hip pain. She states that she has had a history of IBS diarrhea but that is not why she is in the emergency room today. She states that she may have hit her head but does not have pain at this time. 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 She is not on any medications for seizures states that they are related to stress. She also has a history of diabetes and syncope. -: hour(s) Location: right, lower extremity (hip) Radiation: non-radiation Severity scale (1-10): 8 Quality: aching Consistency: constant Improves with: immobilization Worsens with: movement Associated Symptoms: denies other symptoms Treatments Prior to Arrival: none - Related Data Home Medications Medication Instructions Recorded Confirmed Butalb/Acetaminophen/Caffeine 1 cap PO Q6H PRN 08/24/20 10/09/21 [Esgic 50-325-40 Capsule] Verapamil HCl [Verapamil ER] 120 mg PO DAILY 08/24/20 10/09/21 Meclizine HCl 12.5 - 25 mg PO TID PRN 06/06/21 10/09/21 tiZANidine HCL 4 mg PO TID PRN 06/06/21 10/09/21 Fluorometholone 0.1% Ophth Marlene 1 drop BOTH EYES DIRECTED 09/11/21 10/08/21 [Fml] Multivitamins, Thera [Multivitamin 1 tab PO DAILY 09/11/21 10/09/21 (formulary)] Allergies Allergy/AdvReac Type Severity Reaction Status Date / Time Penicillins Allergy Unknown Verified 10/20/21 11:37 Review of Systems ROS Statement: Those systems with pertinent positive or pertinent negative responses have been documented in the HPI. ROS Other: All systems not noted in ROS Statement are negative. Past Medical History Past Medical History: Diabetes Mellitus, Seizure Disorder, Syncope Additional Past Medical History / Comment(s): Diet controlled diabetes, past benign brain tumor and pt states recently found thru MRI an abnormallity R side of her brain and has appt to f/u with [facility] soon, FOLLOWING UP WITH DR. SANTIAGO NOW, IBS, past seizure pt states r/t stress in 2010, migraines, chronic cervical/low back and bilateral hip pain, past L humerus fracture, UTIs. History of Any Multi-Drug Resistant Organisms: None Reported Past Surgical History: Breast Surgery, Tubal Ligation Additional Past Surgical History / Comment(s): Cervical conization for pre- cancer, bilateral breast benign lumpectomies/has markers, colonoscopy. Additional Past Anesthesia/Blood Transfusion Reaction / Comment(s): Pt states she has a fear of anesthesia and wakes up trying to get up. Past Psychological History: Anxiety, Depression Smoking Status: Current every day smoker Past Alcohol Use History: Daily Past Drug Use History: None Reported - Past Family History Father Family Medical History: CVA/TIA Additional Family Medical History / Comment(s): Father had a cva and . Mother Family Medical History: Cancer Additional Family Medical History / Comment(s): Mother of brain cancer at the age of 66 yrs. General Exam Limitations: no limitations General appearance: alert, in no apparent distress Head exam: Present: atraumatic, normocephalic, normal inspection Eye exam: Present: normal appearance, PERRL, EOMI, nystagmus (To the left bilateral). Absent: scleral icterus, conjunctival injection, periorbital swelling, periorbital tenderness ENT exam: Present: normal exam, normal oropharynx, mucous membranes moist Neck exam: Present: normal inspection, full ROM. Absent: tenderness, meningismus, lymphadenopathy, thyromegaly Respiratory exam: Present: normal lung sounds bilaterally. Absent: respiratory distress, wheezes, rales, rhonchi, stridor, chest wall tenderness, accessory muscle use Cardiovascular Exam: Present: regular rate, normal rhythm, normal heart sounds. Absent: systolic murmur, diastolic murmur, rubs, gallop, clicks GI/Abdominal exam: Present: soft. Absent: tenderness Extremities exam: Present: normal inspection, full ROM, normal capillary refill. Absent: tenderness, pedal edema, joint swelling, calf tenderness Back exam: Present: normal inspection. Absent: full ROM, tenderness, CVA tenderness (R), CVA tenderness (L), muscle spasm, paraspinal tenderness, vertebral tenderness, rash noted Neurological exam: Present: alert, oriented X3 Psychiatric exam: Present: normal affect, normal mood Skin exam: Present: warm, dry, intact, normal color. Absent: rash, cyanosis, diaphoretic, petechiae, pallor Course Vital Signs 10/20/21 10/20/21 11:37 14:47 Temperature 98 F Pulse Rate 80 70 Respiratory 18 18 Rate Blood Pressure 90/50 100/54 O2 Sat by Pulse 100 96 Oximetry Medical Decision Making - Medical Decision Making Well-appearing 56-year-old female, alert and oriented 4 and ambulatory with steady gait. She has a history of seizures and seen her neurologist in September. She has not been placed on medications as was told that her seizures are brought on by stress. She also has a benign brain tumor that he is monitoring. Her head is atraumatic and she denies any headaches. No focal neurological deficits. Patient presents with complaints of right hip pain only. X-ray of the right hip is negative. Patient states that she has irritable bowel syndrome with diarrhea and that is not why she presents to the emergency room today. She is declining any pain medication states that she has medications from Dr. Pratt that she uses. She is tolerating by mouth food and fluids in the emergency room. She is able to ambulate. She is agreeable to being discharged home and following up with her primary care doctor in Dr. Pratt next week. Case discussed with Dr. Burrows Disposition Clinical Impression: Seizure, Hip pain, right Disposition: HOME SELF-CARE Condition: Good Instructions (If sedation given, give patient instructions): Recurrent Seizures in Adults (ED), Hip Pain (ED) Additional Instructions: Use ice and Tylenol or Motrin as needed for hip pain. Follow-up with your primary care doctor next week. Return to the emergency room with any new or concerning symptoms. Is patient prescribed a controlled substance at d/c from ED?: No Referrals: Oliva Fernandez MD [Primary Care Provider] - 1-2 days Time of Disposition: 15:48
[2021-10-20 14:57] VITALS: BP 100/54; PULSE 70
--- NOTE | 2021-10-20 15:20 | XR ---
EXAMINATION TYPE: XR Hip Complete RT DATE OF EXAM: 10/20/2021 CLINICAL HISTORY: pain TECHNIQUE: AP and frogleg views of the right hip are obtained. COMPARISON: None. FINDINGS: There is no acute fracture/dislocation evident. The joint space appears within normal li mits. The overlying soft tissue appears unremarkable. IMPRESSION: 1. There is no acute fracture or dislocation. ICD 10 NO FRACTURE, INITIAL EVALUATION
== END 2021-10-20 16:21 | disposition home or self-care (01) ==
LOC: EC 09:59
DX: R56.9 Unspecified convulsions (principal); M25.551 Pain in right hip; E11.9 Type 2 diabetes mellitus without complications; F41.9 Anxiety disorder, unspecified; F32.A Depression, unspecified; F17.200 Nicotine dependence, unspecified, uncomplicated; Z87.440 Personal history of urinary (tract) infections; Z88.0 Allergy status to penicillin; Z98.51 Tubal ligation status
CPT/HCPCS: 73502; 99285

== ENCOUNTER 2022-10-16 21:48 | Emergency (ER) | payer OTHER ==
[2022-10-16 21:55] VITALS: TEMP 97.6
[2022-10-16] MEDS ORDERED: SODIUM CHLORIDE 0.9% 1,000 ML IV STA (23:28)
--- NOTE | 2022-10-16 23:28 | ED ---
Arrhythmia/Palpitations HPI - General Chief Complaint: Arrhythmia/Palpitations Stated Complaint: tightness of chest Time Seen by Provider: 10/16/22 22:00 Source: patient Mode of arrival: ambulatory Limitations: no limitations - History of Present Illness Initial Comments: 57-year-old female past history of diabetes, seizure disorder, benign brain tumor who presents to the emergency department for abnormal vital signs. She states that her home care nurse was at her house around 2:30 today when she noted that she had a heart rate of 130. Patient did admit to having palpitations at this time and therefore the home care nurse recommended that she come into the emergency room for evaluation. She denies history of irregular heart rhythms. Mild associated chest discomfort. She has had an ultrasound of her heart, last of which was 6 months ago. No history of coronary disease. She denies any numbness, tingling or weakness in her 70s. No fevers, chills or cough. She does suffer from chronic diarrhea. She was recently placed on a magnesium supplement. Just started taking it. She denies nausea, vomiting or diarrhea. No ripping or tearing sensation to her back. 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 - Related Data Home Medications Medication Instructions Recorded Confirmed Butalb/Acetaminophen/Caffeine 1 cap PO Q6H PRN 08/24/20 10/09/21 [Esgic 50-325-40 Capsule] Verapamil HCl [Verapamil ER] 120 mg PO DAILY 08/24/20 10/09/21 Meclizine HCl 12.5 - 25 mg PO TID PRN 06/06/21 10/09/21 tiZANidine HCL 4 mg PO TID PRN 06/06/21 10/09/21 Fluorometholone 0.1% Ophth Marlene 1 drop BOTH EYES DIRECTED 09/11/21 10/08/21 [Fml] Multivitamins, Thera [Multivitamin 1 tab PO DAILY 09/11/21 10/09/21 (formulary)] Allergies Allergy/AdvReac Type Severity Reaction Status Date / Time Penicillins Allergy Unknown Verified 10/16/22 21:55 Review of Systems ROS Statement: Those systems with pertinent positive or pertinent negative responses have been documented in the HPI. ROS Other: All systems not noted in ROS Statement are negative. Past Medical History Past Medical History: Diabetes Mellitus, Seizure Disorder, Syncope Additional Past Medical History / Comment(s): Diet controlled diabetes, past benign brain tumor and pt states recently found thru MRI an abnormallity R side of her brain and has appt to f/u with [facility] soon, FOLLOWING UP WITH DR. SANTIAGO NOW, IBS, past seizure pt states r/t stress in 2010, migraines, chronic cervical/low back and bilateral hip pain, past L humerus fracture, UTIs. History of Any Multi-Drug Resistant Organisms: None Reported Past Surgical History: Breast Surgery, Tubal Ligation Additional Past Surgical History / Comment(s): Cervical conization for pre- cancer, bilateral breast benign lumpectomies/has markers, colonoscopy. Additional Past Anesthesia/Blood Transfusion Reaction / Comment(s): Pt states she has a fear of anesthesia and wakes up trying to get up. Past Psychological History: Anxiety, Depression Smoking Status: Current every day smoker Past Alcohol Use History: Daily Past Drug Use History: None Reported - Past Family History Father Family Medical History: CVA/TIA Additional Family Medical History / Comment(s): Father had a cva and . Mother Family Medical History: Cancer Additional Family Medical History / Comment(s): Mother of brain cancer at the age of 66 yrs. General Exam Limitations: no limitations General appearance: alert, in no apparent distress Head exam: Present: atraumatic, normocephalic, normal inspection Eye exam: Present: normal appearance, PERRL, EOMI. Absent: scleral icterus, conjunctival injection, periorbital swelling ENT exam: Present: normal exam, mucous membranes moist Neck exam: Present: normal inspection. Absent: tenderness, meningismus, lymphadenopathy Respiratory exam: Present: normal lung sounds bilaterally. Absent: respiratory distress, wheezes, rales, rhonchi, stridor Cardiovascular Exam: Present: regular rate, normal rhythm, normal heart sounds. Absent: systolic murmur, diastolic murmur, rubs, gallop, clicks GI/Abdominal exam: Present: soft, normal bowel sounds. Absent: distended, tenderness, guarding, rebound, rigid Extremities exam: Present: normal inspection, full ROM, normal capillary refill. Absent: tenderness, pedal edema, joint swelling, calf tenderness Back exam: Present: normal inspection Neurological exam: Present: alert, oriented X3, CN II-XII intact Psychiatric exam: Present: normal affect, normal mood Skin exam: Present: warm, dry, intact, normal color. Absent: rash Course Vital Signs 10/16/22 10/17/22 10/17/22 21:50 00:02 00:04 Temperature 97.6 F Pulse Rate 98 84 Pulse Rate [ 84 [employer] ] Respiratory 20 18 Rate Blood Pressure 159/98 169/103 O2 Sat by Pulse 99 100 Oximetry 10/17/22 04:35 Temperature Pulse Rate 74 Pulse Rate [ [employer] ] Respiratory 15 Rate Blood Pressure 145/67 O2 Sat by Pulse 97 Oximetry EKG Findings - EKG Comments: EKG Findings:: EKG is interpreted by myself. Demonstrates a sinus rhythm with a rate of 71. SD interval 138. QRS 84. QTC of 421. No acute ST segment elevations or depressions Medical Decision Making - Medical Decision Making The patient was placed into room 3. A thorough history and physical exam was performed. Patient is placed on continuous pulse ox and cardiac monitoring. A 12-lead EKG was performed which demonstrates normal sinus rhythm. IV is established and laboratory studies are conducted. They are reviewed. They're remarkable for a magnesium of 1.2. Chest x-ray is performed which demonstrates normal intra-thoracic process. The chest x-ray is interpreted by myself as well as over read by the radiologist. Patient is given 2 g of magnesium for replacement. I did discuss diagnosis, differential and treatment options. Patient has not demonstrated any signs of tachycardia in the emergency department. Patient will be discharged home at this time. She is instructed that she must follow-up next Friday or Friday for repeat lab draw. I did give her prescription. The results will be sent to her primary care doctor. We will also set her up for a Holter monitor. She is to return to the emergency room for any new or worsening symptoms. Continue taking her home magnesium supplement. Patient discharged with stable condition - Lab Data Result diagrams: 10/16/22 23:51 10/16/22 23:51 Lab Results 10/16/22 10/16/22 10/16/22 Range/Units 23:51 23:51 23:51 WBC 5.2 (3.8-10.6) k/uL RBC 3.49 L (3.80-5.40) m/uL Hgb 12.1 (11.4-16.0) gm/dL Hct 35.5 (34.0-46.0) % MCV 101.7 H (80.0-100.0) fL MCH 34.7 (25.0-35.0) pg MCHC 34.1 (31.0-37.0) g/dL RDW 14.2 (11.5-15.5) % Plt Count 176 (150-450) k/uL MPV 8.8 Neutrophils % 43 % Lymphocytes % 44 % Monocytes % 7 % Eosinophils % 1 % Basophils % 1 % Neutrophils # 2.2 (1.3-7.7) k/uL Lymphocytes # 2.3 (1.0-4.8) k/uL Monocytes # 0.4 (0-1.0) k/uL Eosinophils # 0.1 (0-0.7) k/uL Basophils # 0.0 (0-0.2) k/uL Macrocytosis Slight PT 10.9 (9.0-12.0) sec INR 1.0 (<1.2) APTT 23.5 (22.0-30.0) sec Sodium (137-145) mmol/L Potassium (3.5-5.1) mmol/L Chloride (98-107) mmol/L Carbon Dioxide (22-30) mmol/L Anion Gap mmol/L BUN (7-17) mg/dL Creatinine (0.52-1.04) mg/dL Est GFR (CKD-EPI)AfAm (>60 ml/min/1.73 sqM) Est GFR (CKD-EPI)NonAf (>60 ml/min/1.73 sqM) Glucose (74-99) mg/dL Calcium (8.4-10.2) mg/dL Magnesium (1.6-2.3) mg/dL Total Bilirubin (0.2-1.3) mg/dL AST (14-36) U/L ALT (4-34) U/L Alkaline Phosphatase (38-126) U/L Troponin I (0.000-0.034) ng/mL Total Protein (6.3-8.2) g/dL Albumin (3.5-5.0) g/dL TSH (0.465-4.680) mIU/L Free T4 (0.78-2.19) ng/dL Urine Color Yellow Urine Appearance Clear (Clear) Urine pH 6.5 (5.0-8.0) Ur Specific [place] 1.023 (1.001-1.035) Urine Protein Trace H (Negative) Urine Glucose (UA) Negative (Negative) Urine Ketones Negative (Negative) Urine Blood Negative (Negative) Urine Nitrite Negative (Negative) Urine Bilirubin Negative (Negative) Urine Urobilinogen <2.0 (<2.0) mg/dL Ur Leukocyte Esterase Negative (Negative) 10/16/22 10/16/22 Range/Units 23:51 23:51 WBC (3.8-10.6) k/uL RBC (3.80-5.40) m/uL Hgb (11.4-16.0) gm/dL Hct (34.0-46.0) % MCV (80.0-100.0) fL MCH (25.0-35.0) pg MCHC (31.0-37.0) g/dL RDW (11.5-15.5) % Plt Count (150-450) k/uL MPV Neutrophils % % Lymphocytes % % Monocytes % % Eosinophils % % Basophils % % Neutrophils # (1.3-7.7) k/uL Lymphocytes # (1.0-4.8) k/uL Monocytes # (0-1.0) k/uL Eosinophils # (0-0.7) k/uL Basophils # (0-0.2) k/uL Macrocytosis PT (9.0-12.0) sec INR (<1.2) APTT (22.0-30.0) sec Sodium 134 L (137-145) mmol/L Potassium 3.7 (3.5-5.1) mmol/L Chloride 100 (98-107) mmol/L Carbon Dioxide 26 (22-30) mmol/L Anion Gap 8 mmol/L BUN 22 H (7-17) mg/dL Creatinine 0.63 (0.52-1.04) mg/dL Est GFR (CKD-EPI)AfAm >90 (>60 ml/min/1.73 sqM) Est GFR (CKD-EPI)NonAf >90 (>60 ml/min/1.73 sqM) Glucose 92 (74-99) mg/dL Calcium 9.1 (8.4-10.2) mg/dL Magnesium 1.2 L (1.6-2.3) mg/dL Total Bilirubin 0.9 (0.2-1.3) mg/dL AST 40 H (14-36) U/L ALT 23 (4-34) U/L Alkaline Phosphatase 88 (38-126) U/L Troponin I <0.012 (0.000-0.034) ng/mL Total Protein 7.0 (6.3-8.2) g/dL Albumin 4.7 (3.5-5.0) g/dL TSH 4.920 H (0.465-4.680) mIU/L Free T4 0.86 (0.78-2.19) ng/dL Urine Color Urine Appearance (Clear) Urine pH (5.0-8.0) Ur Specific [place] (1.001-1.035) Urine Protein (Negative) Urine Glucose (UA) (Negative) Urine Ketones (Negative) Urine Blood (Negative) Urine Nitrite (Negative) Urine Bilirubin (Negative) Urine Urobilinogen (<2.0) mg/dL Ur Leukocyte Esterase (Negative) Disposition Clinical Impression: Palpitations, Hypomagnesemia, Diarrhea Disposition: HOME SELF-CARE Condition: Stable Instructions (If sedation given, give patient instructions): Heart Palpitations (ED) Additional Instructions: We will set you up with a Holter monitor and your doctor will receive your results. We gave you magnesium in the emergency department. Continue taking your magnesium supplement that you just started at home. Please come to our outpatient lab on Friday or Friday of next week to have your magnesium level redrawn. The results will be sent your primary care doctor. I recommend seeing Dr. Cerda for your chronic diarrhea. Return to the emergency room for any new or worsening symptoms Is patient prescribed a controlled substance at d/c from ED?: No Referrals: Teodora Lewis MD [Primary Care Provider] - 1-2 days Janet Cerda MD [STAFF PHYSICIAN] - 1-2 days Time of Disposition: 02:57
[2022-10-17 00:10] LABS: Basophils % (A) 1 %; Eosinophils # (A) 0.1 k/uL (0-0.7); Eosinophils % (A) 1 %; HCT 35.5 % (34.0-46.0); HGB 12.1 gm/dL (11.4-16.0); Lymphocytes # (A) 2.3 k/uL (1.0-4.8); Lymphocytes % (A) 44 %; MCH 34.7 pg (25.0-35.0); MCHC 34.1 g/dL (31.0-37.0); MCV 101.7 fL (80.0-100.0); Macrocytosis Slight; Mean Platelet Volume 8.8; Monocytes # (A) 0.4 k/uL (0-1.0); Monocytes % (A) 7 %; Neutrophils # (A) 2.2 k/uL (1.3-7.7); Neutrophils % (A) 43 %; Platelet Count 176 k/uL (150-450); RBC 3.49 m/uL (3.80-5.40); RDW 14.2 % (11.5-15.5); WBC 5.2 k/uL (3.8-10.6)
[2022-10-17 00:21] LABS: ALT 23 U/L (4-34); AST 40 U/L (14-36); African American GFR (CKD) >90 (>60 ml/min/1.73 sqM); Albumin 4.7 g/dL (3.5-5.0); Alkaline Phosphatase 88 U/L (38-126); Anion Gap 8 mmol/L; Blood Urea Nitrogen 22 mg/dL (7-17); Calcium 9.1 mg/dL (8.4-10.2); Carbon Dioxide 26 mmol/L (22-30); Chloride 100 mmol/L (98-107); Glucose 92 mg/dL (74-99); Magnesium 1.2 mg/dL (1.6-2.3); Non-African American GFR(CKD) >90 (>60 ml/min/1.73 sqM); Potassium 3.7 mmol/L (3.5-5.1); Sodium 134 mmol/L (137-145); Total Bilirubin 0.9 mg/dL (0.2-1.3)
[2022-10-17 00:23] LABS: Partial Thromboplastin Time 23.5 sec (22.0-30.0); Prothrombin Time 10.9 sec (9.0-12.0)
[2022-10-17 00:32] LABS: Appearance,Urine Clear (Clear); Bilirubin,Urine Negative (Negative); Blood,Urine Negative (Negative); Color,Urine Yellow; Glucose,Urine (UA) Negative (Negative); Ketones,Urine Negative (Negative); Leukocyte Esterase,Urine Negative (Negative); Nitrite,Urine Negative (Negative); PH, Urine 6.5 (5.0-8.0); Protein,Urine Trace (Negative); Specific Gravity,Urine 1.023 (1.001-1.035); Urobilinogen,Urine <2.0 mg/dL (<2.0)
--- NOTE | 2022-10-17 00:40 | XR ---
EXAMINATION TYPE: XR chest 2V DATE OF EXAM: 10/17/2022 COMPARISON: 09/11/2021 HISTORY: Dysrhythmia TECHNIQUE: FINDINGS: Heart is normal. Lungs are clear. Diaphragm is normal. Bony thorax is intact. IMPRESSION: Normal chest. No change.
[2022-10-17 01:34] LABS: T4, Free (Free Thyroxine) 0.86 ng/dL (0.78-2.19)
[2022-10-17] MEDS: MAGNESIUM SULFATE-D5W PMX 1 GM in DEXTROSE/WATER 1 100ML.BAG IVPB SCH ×2 (03:21→03:45)
[2022-10-17 04:35] VITALS: BP 145/67; PULSE 74; RESP 15
== END 2022-10-17 04:40 | disposition home or self-care (01) ==
LOC: EC 21:48
DX: R00.2 Palpitations (principal); E83.42 Hypomagnesemia; R19.7 Diarrhea, unspecified; E11.9 Type 2 diabetes mellitus without complications; F41.9 Anxiety disorder, unspecified; G40.909 Epilepsy, unspecified, not intractable, without status epilepticus; F32.A Depression, unspecified; F17.200 Nicotine dependence, unspecified, uncomplicated; Z88.0 Allergy status to penicillin; Z79.899 Other long term (current) drug therapy
CPT/HCPCS: 99285; 96365; 96361 ×3; 36415; 93005; 84439; 80053; 84443; 83735; 84484; 85025; 85610; 85730; 81003; 71046; J3475

== ENCOUNTER → 2022-10-17 | Outpatient (CLI) | payer OTHER ==
--- NOTE | 2022-10-23 14:51 | HM ---
24 hour Holter monitor shows sinus mechanism with heart rates ranging from 54- 155 beats a minute, average 79 beats a minute No tachycardia or bradycardia arrhythmias MTDD
== END | disposition home or self-care (01) ==
LOC: RADECHMAIN 12:10
PROVIDERS: ATTEND Family Medicine
DX: R00.2 Palpitations (principal)
CPT/HCPCS: 93225; 93226

== ENCOUNTER → 2022-10-22 | Outpatient (CLI) | payer OTHER | END | disposition home or self-care (01) | LOC: LABWHC1 10:43 | PROVIDERS: ATTEND Emergency Medicine | DX: E83.42 Hypomagnesemia (principal) | CPT/HCPCS: 36415; 83735 ==

== ENCOUNTER → 2023-02-28 | Outpatient (CLI) | payer OTHER ==
--- NOTE | 2023-02-28 16:34 | US ---
EXAMINATION TYPE: US carotid duplex BILAT DATE OF EXAM: 02/28/2023 COMPARISON: NONE CLINICAL HISTORY: I10 ESSENTIAL (PRIMARY) HYPERTENSION. HTN TECHNIQUE: Carotid duplex ultrasound examination. Indirect Doppler criteria was utilized. FINDINGS: EXAM MEASUREMENTS: RIGHT: Peak Systolic Velocity (PSV) cm/sec ----- Right CCA: 6.7 ----- Right ICA: 96.8 ----- Right ECA: 85.2 ICA/CCA ratio: 1.4 RIGHT: End Diastole cm/sec ----- Right CCA: 19.8 ----- Right ICA: 22.7 ----- Right ECA: 18.3 LEFT: Peak Systolic Velocity (PSV) cm/sec ----- Left CCA: 100 ----- Left ICA: 96 ----- Left ECA: 97.3 ICA/CCA ratio: 1.0 LEFT: End Diastole cm/sec ----- Left CCA: 32.5 ----- Left ICA: 32.5 ----- Left ECA: 18 VERTEBRALS (direction of flow): Right Vertebral: Antegrade Left Vertebral: Antegrade Rhythm: Normal HOSPITALITY MANAGER NOTES: No significant stenosis seen IMPRESSION: Less than 50% stenosis of bilateral carotid bifurcations. Criteria for Assigning % of Stenosis / Diameter reduction (Estimation based on the indirect measurements of the internal carotid artery velocities (ICA PSV). 1. Normal (no stenosis)=ICA PSV < 125 cm/s: ratio < 2.0: ICA EDV<40 cm/s. 2. Less than 50% stenosis=ICA PSV < 125 cm/s: ratio < 2.0: ICA EDV<40 cm/s. 3. 50 to 69% stenosis=ICA PSV of 125 to 230 cm/s: ration 2.0 ? 4.0: ICA EDV 40-100 cm/s. 4. Greater than 70% stenosis to near occlusion= ICA PSV > 230 cm/s: ratio > 4.0: ICA EDV > 100 cm/s. 5. Near occlusion= ICA PSV velocities may be low or undetectable: variable ratio and ICA EDV. 6. Total occlusion=unable to detect flow.
== END | disposition home or self-care (01) ==
LOC: RADUSWWP 15:10
PROVIDERS: ATTEND Family Medicine
DX: I65.23 Occlusion and stenosis of bilateral carotid arteries (principal); I10 Essential (primary) hypertension
CPT/HCPCS: 93880

== ENCOUNTER → 2023-10-28 | Outpatient (CLI) | payer OTHER ==
--- NOTE | 2023-10-28 16:14 | BD ---
EXAMINATION TYPE: Axial Bone Density DATE OF EXAM: 10/28/2023 CLINICAL HISTORY: 58 years old Female. ICD-10 CODE: Z78.0 menopause, A20243 SCREENING FOR OSTEO Height: 62.5in Weight: 109lb FRAX RISK QUESTIONS: History of Fracture in Adulthood: yes Secondary Osteoporosis: 3. Menopause before 45: yes Rheumatoid Arthritis: yes Current Tobacco Use: yes RISK FACTORS HISTORY OF: History of Wrist Fracture: yes, left When: 2009 Family History of Osteoporosis: yes Active: yes Postmenopausal woman: yes Frequent falls: yes Poor Health: fair MEDICATIONS: Additional Medications: Additional History: history of left wrist, humerus and clavicle fx, syncope EXAM MEASUREMENTS: Bone mineral densitometry was performed using the Radiance System. Bone mineral density as measured about the Lumbar spine is: ----- L1-L4(G/cm2): 1.031 T Score Values are as follows: ----- L1: -1.7 ----- L2: -1.3 ----- L3: -1.2 ----- L4: -1.0 ----- L1-L4: -1.2 Z Score Values are as follows: ----- L1: -0.1 ----- L2: 0.3 ----- L3: 0.3 ----- L4: 0.5 ----- L1-L4: 0.3 First dexa at [facility] Bone mineral density about the R hip (g/cm2): 0.670 Bone mineral density about the L hip (g/cm2): 0.706 T Score values are as follows: -----R Neck: -2.5 -----L Neck: -2.4 -----R Total: -2.7 -----L Total: -2.4 Z Score values are as follows: -----R Neck: -1.1 -----L Neck: -0.9 -----R Total: -1.5 -----L Total: -1.2 FRAX%s: The graph provided illustrates a 21.5% chance for a major osteoporotic fx and a 5.3% chance f or the hips probability for fx in 10 years time. IMPRESSION: Osteopenia (T Score between -2.5 and -1). There is slightly increased risk of fracture and the patient may be considered for treatment. Re-Screen 2-5 years. NOTE: T-SCORE=SD OF THE YOUNG ADULT MEAN.
--- NOTE | 2023-10-29 12:00 | MM ---
Reason for Exam: Screening (asymptomatic). Last mammogram was performed 2 year(s) and 10 month(s) ago. Patient History: Menarche at age 13. First Full-Term at age 19. Postmenopausal. Hormonal Contraceptives for 3 years from age 16 until age 19. 05/01/2009, Benign Core Biopsy on the left side. 03/31/2009, Core Biopsy on the Left side. 03/31/2009, Benign Core Biopsy on the left side. Mother had breast cancer, age 30. Risk Values: Olive 5 year model risk: 3.6%. NCI Lifetime model risk: 20.4%. Prior Study Comparison: 10/01/2019 Bilateral Screening Mammogram, [facility]. 10/29/2019 Bilateral Diagnostic Mammogram, [facility]. 12/21/2020 Bilateral Screening Mammogram, [facility]. Tissue Density: The breast tissue is extremely dense which could obscure a lesion on mammography. Findings: Analyzed By CAD. There is no suspicious group of microcalcifications or new suspicious mass in either breast. Overall Assessment: Benign, BI-RAD 2 Management: Screening Mammogram of both breasts in 1 year. . Patient should continue monthly self-breast exams. A clinical breast exam by your physician is recommended on an annual basis. This exam should not preclude additional follow-up of suspicious palpable abnormalities. Note on Olive scores and lifetime risk: 1. A Olive score greater than 3% is considered moderate risk. If this is the case, consider specialist referral to assess eligibility for a risk reducing agent. 2. If overall lifetime risk for the development of breast cancer is 20% or higher, the patient may qualify for future screening with alternating mammogram and breast MRI. Electronically signed and approved by: Vadim Suarez M.D. Radiologis
== END | disposition home or self-care (01) ==
LOC: RADMAMWWP 07:47
PROVIDERS: ATTEND Family Medicine
DX: Z12.31 Encounter for screening mammogram for malignant neoplasm of breast (principal); Z13.820 Encounter for screening for osteoporosis; M85.89 Other specified disorders of bone density and structure, multiple sites; Z78.0 Asymptomatic menopausal state; Z80.3 Family history of malignant neoplasm of breast
CPT/HCPCS: 77063; 77067; 77080

== ENCOUNTER 2024-03-08 08:25 | Emergency (ER) | payer OTHER ==
[2024-03-08] MEDS: SODIUM CHLORIDE 0.9% 500 ML 500 ML IV STA (08:57)
[2024-03-08 09:24] LABS: Basophils % (A) 0 %; Eosinophils % (A) 0 %; HCT 33.2 % (34.0-46.0); HGB 11.1 gm/dL (11.4-16.0); Lymphocytes # (A) 1.6 k/uL (1.0-4.8); Lymphocytes % (A) 17 %; MCH 34.2 pg (25.0-35.0); MCHC 33.3 g/dL (31.0-37.0); MCV 102.7 fL (80.0-100.0); Macrocytosis Slight; Mean Platelet Volume 9.7; Monocytes # (A) 0.6 k/uL (0-1.0); Monocytes % (A) 6 %; Neutrophils % (A) 74 %; Platelet Count 169 k/uL (150-450); RBC 3.24 m/uL (3.80-5.40); RDW 13.8 % (11.5-15.5); WBC 9.4 k/uL (3.8-10.6)
[2024-03-08] MEDS: HYDROmorphone 0.5 MG/0.5 ML SYRINGE IVP STA ×2 (09:26→10:44)
[2024-03-08] MEDS: ONDANSETRON 4 MG/2 ML VIAL IVP STA (09:26)
--- NOTE | 2024-03-08 09:30 | XR ---
EXAMINATION TYPE: XR shoulder limited RT DATE OF EXAM: 03/08/2024 CLINICAL HISTORY: pain TECHNIQUE: Single view right shoulder COMPARISON: None FINDINGS: Fracture noted to involve the right humeral neck with the proximal migration of the distal fracture component. There is rotation of the humeral head. No additional fractures seen within the fi eld-of-view. IMPRESSION: 1. Right humeral surgical neck fracture as discussed.
--- NOTE | 2024-03-08 09:30 | XR ---
EXAMINATION TYPE: XR chest 1V DATE OF EXAM: 03/08/2024 HISTORY: Shortness of breath. COMPARISON: 10/17/2022 TECHNIQUE: Single view of the chest is submitted. FINDINGS: Demonstrated are scattered senescent parenchymal change. There is no evidence for focal infiltrate. The heart is stable. Hilar and mediastinal structures are within normal limits. Degenerative changes are seen of the dorsal spine. Right proximal fracture. IMPRESSION: 1. Chronic changes without evidence for acute pulmonary disease.
[2024-03-08 09:53] LABS: INR 0.8 (<1.2); Partial Thromboplastin Time 22.1 sec (22.0-30.0); Prothrombin Time 9.6 sec (10.0-12.5)
--- NOTE | 2024-03-08 10:01 | ED ---
General Adult HPI - General Chief complaint: Syncope Stated complaint: R arm injury Time Seen by Provider: 03/08/24 08:38 Source: patient, RN notes reviewed Mode of arrival: ambulatory Limitations: no limitations - History of Present Illness Initial comments: 59-year-old female presents emergency department chief complaint of syncopal episode. Patient states she has had syncopal episodes in the past in which she is followed by cardiology for. Patient states she also has a history of tachycardia states that she is taking all of her medications. Patient states that she went for a walk Back into her house states that she felt lightheaded and then woke up on the ground. Patient states that she has right arm pain swelling. She denies any headache or head pain at this time. Patient denies any nausea vomiting states she does feel her heart racing. Patient denies any history of DVT or PE. - Related Data Home Medications Medication Instructions Recorded Confirmed Butalb/Acetaminophen/Caffeine 1 cap PO Q6H PRN 08/24/20 03/08/24 [Esgic 50-325-40 Capsule] Multivitamins, Thera [Multivitamin 1 tab PO DAILY 09/11/21 03/08/24 (formulary)] Loratadine [Claritin] 10 mg PO DAILY 03/08/24 03/08/24 Magnesium Oxide [Mag-Ox] 400 mg PO DAILY 03/08/24 03/08/24 Metoprolol Succinate [Toprol XL] 50 mg PO DAILY 03/08/24 03/08/24 Potassium Chloride [Klor-Con M20] 20 meq PO DIRECTED 03/08/24 03/08/24 Vitamin D3 (Unknown Dose) 1 tab PO DAILY 03/08/24 03/08/24 lisinopriL [Zestril] 5 mg PO DAILY 03/08/24 03/08/24 Previous Rx's Medication Instructions Recorded HYDROcodone/APAP 7.5-325MG [Rye 1 tab PO Q6HR PRN 3 Days #12 tab 03/08/24 7.5-325] Allergies Allergy/AdvReac Type Severity Reaction Status Date / Time Penicillins Allergy Rash/Hives Verified 03/08/24 13:26 Review of Systems ROS Statement: Those systems with pertinent positive or pertinent negative responses have been documented in the HPI. ROS Other: All systems not noted in ROS Statement are negative. 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 History of Any Multi-Drug Resistant Organisms: None Reported Past Surgical History: Breast Surgery, Tubal Ligation Additional Past Surgical History / Comment(s): Cervical conization for pre- cancer, bilateral breast benign lumpectomies/has markers, colonoscopy. Past Anesthesia/Blood Transfusion Reactions: Motion Sickness Additional Past Anesthesia/Blood Transfusion Reaction / Comment(s): Pt states she has a fear of anesthesia and wakes up trying to get up. Past Psychological History: Anxiety, Depression Smoking Status: Current every day smoker Past Alcohol Use History: Occasional Past Drug Use History: None Reported - Past Family History Father Family Medical History: CVA/TIA Additional Family Medical History / Comment(s): Father had a cva and . Mother Family Medical History: Cancer Additional Family Medical History / Comment(s): Mother of brain cancer at the age of 66 yrs. General Exam Limitations: no limitations General appearance: alert, in no apparent distress Head exam: Present: atraumatic, normocephalic, normal inspection Eye exam: Present: normal appearance, PERRL, EOMI. Absent: scleral icterus, conjunctival injection, periorbital swelling ENT exam: Present: normal exam, normal oropharynx, mucous membranes moist Neck exam: Present: normal inspection, full ROM. Absent: tenderness, meningismus, lymphadenopathy Respiratory exam: Present: normal lung sounds bilaterally. Absent: respiratory distress, wheezes, rales, rhonchi, stridor Cardiovascular Exam: Present: normal rhythm, tachycardia, normal heart sounds. Absent: systolic murmur, diastolic murmur, rubs, gallop, clicks GI/Abdominal exam: Present: soft, normal bowel sounds. Absent: distended, tenderness, guarding, rebound, rigid Extremities exam: Present: other (Extensive swelling, ecchymosis of the right shoulder region very limited movement neurovascular intact) Course Vital Signs 03/08/24 03/08/24 03/08/24 08:27 09:03 12:05 Temperature 98 F Pulse Rate 150 H 96 86 Respiratory 20 16 Rate Blood Pressure 127/94 140/61 O2 Sat by Pulse 94 L 99 Oximetry 03/08/24 13:00 Temperature 98.4 F Pulse Rate 81 Respiratory 18 Rate Blood Pressure 140/74 O2 Sat by Pulse 97 Oximetry EKG Findings - EKG Comments: EKG Findings:: EKG performed at 8: 36 sinus tachycardia with short NC rate of 126 NC 96 QRS 78 QT/QTc 383/458 - EKG Results: EKG: interpreted by JAMEEL Medical Decision Making - Medical Decision Making Was pt. sent in by a medical professional or institution (, PA, [employer], urgent c are, hospital, or usp...) When possible be specific @ -No Did you speak to anyone other than the patient for history (EMS, parent, family, police, friend...)? What history was obtained from this source @ -No Did you review nursing and triage notes (agree or disagree)? Why? @ -I reviewed and agree with nursing and triage notes Were old charts reviewed (outside hosp., previous admission, EMS record, old EKG, old radiological studies, urgent care reports/EKG's, usp records)? Report findings @ -No old charts were reviewed Differential Diagnosis (chest pain, altered mental status, abdominal pain women, abdominal pain men, vaginal bleeding, weakness, fever, dyspnea, syncope, h eadache, dizziness, GI bleed, back pain, seizure, CVA, palpatations, mental health, musculoskeletal)? @ -[Differential Syncope: Valvular disease, hypertrophic cardiomyopathy, pulmonary embolism, tamponade, tachycardia, bradycardia, DC, hypovolemia, hemorrhage, dissection, anemia, intracranial hemorrhage, seizure, hypoglycemia, carbon monoxide poisoning, this is not meant to be an all-inclusive list. EKG interpreted by me (3pts min.). @ -As above X-rays interpreted by me (1pt min.). @ -1 view chest x-ray shows no acute cardiopulmonary process evidence of right humeral fracture Right shoulder x-ray shows displaced proximal humerus fracture CT interpreted by me (1pt min.). @ -CT angio of the chest is negative for acute PE. There is groundglass opacities U/S interpreted by me (1pt. min.). @ -None done What testing was considered but not performed or refused? (CT, X-rays, U/S, labs)? Why? @ -None What meds were considered but not given or refused? Why? @ -None Did you discuss the management of the patient with other professionals (professionals i.e. , PA, [employer], lab, RT, psych nurse, manager social work, letter stamping machine operator, teacher, employment officer, retail business development manager)? Give summary @ -No Was smoking cessation discussed for >3mins.? @ -No Was critical care preformed (if so, how long)? @ -No Were there social determinants of health that impacted care today? How? (Homelessness, low income, unemployed, alcoholism, drug addiction, transportation, low edu. Level, literacy, decrease access to med. care, detention, rehab)? @ -No Was there de-escalation of care discussed even if they declined (Discuss DNR or withdrawal of care, Hospice)? DNR status @ -No What co-morbidities impacted this encounter? (DM, HTN, Smoking, COPD, CAD, Cancer, CVA, ARF, Chemo, Hep., AIDS, mental health diagnosis, sleep apnea, morbid obesity)? @ -Syncope tachycardia Was patient admitted / discharged? Hospital course, mention meds given and route, prescriptions, significant lab abnormalities, going to OR and other pertinent info. @ -Patient presented after syncopal episode which is an ongoing issue for his is known patient patient's heart rate did improved after analgesics and IV fluids. Patient has no evidence of PE. Patient does have a right proximal arm fracture in which she was splinted, given analgesics and will follow-up with orthopedics. She feels comfortable with discharge and return parens discussed. Patient has no URI symptoms to support possible COVID-19. Undiagnosed new problem with uncertain prognosis? @ -No Drug Therapy requiring intensive monitoring for toxicity (Heparin, Nitro, Insulin, Cardizem)? @ -No Were any procedures done? @ -No Diagnosis/symptom? @ -Syncope, right proximal humerus fracture Acute, or Chronic, or Acute on Chronic? @ -Acute Uncomplicated (without systemic symptoms) or Complicated (systemic symptoms)? @ -complicated Side effects of treatment? @ -No Exacerbation, Progression, or Severe Exacerbation? @ -No Poses a threat to life or bodily function? How? (Chest pain, USA, DC, pneumonia, PE, COPD, DKA, ARF, appy, cholecystitis, CVA, Diverticulitis, Homicidal, Suicidal, threat to staff... and all critical care pts) @ -No - Lab Data Result diagrams: 03/08/24 09:01 03/08/24 09:39 Lab Results 03/08/24 03/08/24 03/08/24 Range/Units 09:01 09:01 09:39 WBC 9.4 (3.8-10.6) k/uL RBC 3.24 L (3.80-5.40) m/uL Hgb 11.1 L (11.4-16.0) gm/dL Hct 33.2 L (34.0-46.0) % MCV 102.7 H (80.0-100.0) fL MCH 34.2 (25.0-35.0) pg MCHC 33.3 (31.0-37.0) g/dL RDW 13.8 (11.5-15.5) % Plt Count 169 (150-450) k/uL MPV 9.7 Neutrophils % 74 % Lymphocytes % 17 % Monocytes % 6 % Eosinophils % 0 % Basophils % 0 % Neutrophils # 7.0 (1.3-7.7) k/uL Lymphocytes # 1.6 (1.0-4.8) k/uL Monocytes # 0.6 (0-1.0) k/uL Eosinophils # 0.0 (0-0.7) k/uL Basophils # 0.0 (0-0.2) k/uL Macrocytosis Slight PT 9.6 L (10.0-12.5) sec INR 0.8 (<1.2) APTT 22.1 (22.0-30.0) sec D-Dimer 4.27 H (<0.60) mg/L FEU Sodium (137-145) mmol/L Potassium (3.5-5.1) mmol/L Chloride (98-107) mmol/L Carbon Dioxide (22-30) mmol/L Anion Gap mmol/L BUN (7-17) mg/dL Creatinine (0.52-1.04) mg/dL Est GFR (CKD-EPI)AfAm (>60 ml/min/1.73 sqM) Est GFR (CKD-EPI)NonAf (>60 ml/min/1.73 sqM) Glucose (74-99) mg/dL Calcium (8.4-10.2) mg/dL Total Bilirubin (0.2-1.3) mg/dL AST (14-36) U/L ALT (4-34) U/L Alkaline Phosphatase (38-126) U/L Troponin I <0.012 (0.000-0.034) ng/mL Total Protein (6.3-8.2) g/dL Albumin (3.5-5.0) g/dL 03/08/24 Range/Units 09:39 WBC (3.8-10.6) k/uL RBC (3.80-5.40) m/uL Hgb (11.4-16.0) gm/dL Hct (34.0-46.0) % MCV (80.0-100.0) fL MCH (25.0-35.0) pg MCHC (31.0-37.0) g/dL RDW (11.5-15.5) % Plt Count (150-450) k/uL MPV Neutrophils % % Lymphocytes % % Monocytes % % Eosinophils % % Basophils % % Neutrophils # (1.3-7.7) k/uL Lymphocytes # (1.0-4.8) k/uL Monocytes # (0-1.0) k/uL Eosinophils # (0-0.7) k/uL Basophils # (0-0.2) k/uL Macrocytosis PT (10.0-12.5) sec INR (<1.2) APTT (22.0-30.0) sec D-Dimer (<0.60) mg/L FEU Sodium 134 L (137-145) mmol/L Potassium 3.2 L (3.5-5.1) mmol/L Chloride 102 (98-107) mmol/L Carbon Dioxide 25 (22-30) mmol/L Anion Gap 7 mmol/L BUN 18 H (7-17) mg/dL Creatinine 0.52 (0.52-1.04) mg/dL Est GFR (CKD-EPI)AfAm >90 (>60 ml/min/1.73 sqM) Est GFR (CKD-EPI)NonAf >90 (>60 ml/min/1.73 sqM) Glucose 134 H (74-99) mg/dL Calcium 8.6 (8.4-10.2) mg/dL Total Bilirubin 1.0 (0.2-1.3) mg/dL AST 39 H (14-36) U/L ALT 18 (4-34) U/L Alkaline Phosphatase 82 (38-126) U/L Troponin I (0.000-0.034) ng/mL Total Protein 6.1 L (6.3-8.2) g/dL Albumin 3.6 (3.5-5.0) g/dL Disposition Clinical Impression: Fracture of humerus, proximal, right, closed, Syncope Disposition: HOME SELF-CARE Condition: Stable Instructions (If sedation given, give patient instructions): Syncope (ED), Proximal Humerus Fracture (ED) Additional Instructions: Please return to the Emergency Department if symptoms worsen or any other concerns. Prescriptions: HYDROcodone/APAP 7.5-325MG [Rye 7.5-325] 1 tab PO Q6HR PRN 3 Days #12 tab PRN Reason: Pain Is patient prescribed a controlled substance at d/c from ED?: No Referrals: Teodora Lewis MD [Primary Care Provider] - 1-2 days Suzy Lal DO [Doctor of Osteopathic Medicine] - 1-2 days Time of Disposition: 13:22
[2024-03-08 10:09] LABS: ALT 18 U/L (4-34); AST 39 U/L (14-36); African American GFR (CKD) >90 (>60 ml/min/1.73 sqM); Albumin 3.6 g/dL (3.5-5.0); Alkaline Phosphatase 82 U/L (38-126); Anion Gap 7 mmol/L; Blood Urea Nitrogen 18 mg/dL (7-17); Calcium 8.6 mg/dL (8.4-10.2); Carbon Dioxide 25 mmol/L (22-30); Chloride 102 mmol/L (98-107); Glucose 134 mg/dL (74-99); Non-African American GFR(CKD) >90 (>60 ml/min/1.73 sqM); Potassium 3.2 mmol/L (3.5-5.1); Sodium 134 mmol/L (137-145); Total Protein 6.1 g/dL (6.3-8.2)
--- NOTE | 2024-03-08 12:37 | CT ---
EXAMINATION TYPE: CT chest angio for PE CT DLP: 255.6 mGycm, Automated exposure control for dose reduction was used. DATE OF EXAM: 03/08/2024 12:10 PM COMPARISON: Chest radiograph from same day. Multiple CTs of the chest with most recent on . CLINICAL INDICATION:Female, 59 years old with history of Syncope elevated D-dimer; Syncope elevated D -dimer TECHNIQUE/CONTRAST: CTA scan of the thorax is performed with IV Contrast, patient injected with 46ml mL of Isovue 370, MA P images are created and reviewed these are created on a separate workstation.. FINDINGS: Pulmonary Artery: There is no evidence for a filling defect within the pulmonary vasculature to sugge st acute pulmonary embolism. The pulmonary artery is of normal size. Lungs/Pleura: No evidence of focal consolidation, pleural effusion or pneumothorax. Airway: Large airways are patent. Heart: Heart is within normal limits for size. Vasculature: No evidence of aortic aneurysm. Mediastinum: No gross evidence of adenopathy. Musculoskeletal: No acute osseous abnormalities Soft Tissues: Unremarkable. Lower neck: No significant findings. Upper Abdomen: No significant acute findings. Left nephrolithiasis IMPRESSION: 1. No evidence of pulmonary embolism. 2. Peripheral groundglass pulmonary opacities consistent with atypical pulmonary infection such as CO VID-19. 3. Reactive mediastinal lymphadenopathy likely secondary to #2. Follow up recommendations for incidental pulmonary nodules, if there are any, are per [employer] [employer] or [employer]. https://radiopaedia.org/articles/[email or web address]?[email or web address]
[2024-03-08 14:27] VITALS: BP 140/74; PULSE 81; RESP 18; TEMP 98.4
== END 2024-03-08 13:56 | disposition home or self-care (01) ==
LOC: EC 08:25
DX: S42.201A Unspecified fracture of upper end of right humerus, initial encounter for closed fracture (principal); F17.200 Nicotine dependence, unspecified, uncomplicated; Z88.0 Allergy status to penicillin; X58.XXXA Exposure to other specified factors, initial encounter
CPT/HCPCS: 36415; 93005; 85379; 80053; 84484; 85025; 85610; 85730; 73020; 71045; 71275; 99285; 96374; 96375; 96376; 96361; J2405; J1170; Q9967

== ENCOUNTER 2024-12-06 22:43 | Observation (INO) | payer OTHER ==
[2024-12-06 22:52] LABS: Glucose,Whole Blood 95 mg/dL (70-110)
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
[2024-12-06] MEDS: SODIUM CHLORIDE 0.9% 1,000 ML IV STA (23:12)
[2024-12-06 23:21] LABS: Basophils # (A) 0.1 k/uL (0-0.2); Basophils % (A) 2 %; Eosinophils # (A) 0.1 k/uL (0-0.7); Eosinophils % (A) 1 %; HCT 39.4 % (34.0-46.0); HGB 13.4 gm/dL (11.4-16.0); Lymphocytes # (A) 2.4 k/uL (1.0-4.8); Lymphocytes % (A) 59 %; MCH 36.4 pg (25.0-35.0); MCV 106.8 fL (80.0-100.0); Macrocytosis Moderate; Mean Platelet Volume 7.7; Monocytes # (A) 0.2 k/uL (0-1.0); Monocytes % (A) 5 %; Neutrophils # (A) 1.2 k/uL (1.3-7.7); Neutrophils % (A) 29 %; Platelet Count 286 k/uL (150-450); RBC 3.69 m/uL (3.80-5.40); RDW 14.6 % (11.5-15.5)
[2024-12-06 23:33] LABS: ALT 17 U/L (4-34); AST 29 U/L (14-36); Acetaminophen <10.0 ug/mL; African American GFR (CKD) >90 (>60 ml/min/1.73 sqM); Albumin 4.8 g/dL (3.5-5.0); Alkaline Phosphatase 79 U/L (38-126); Anion Gap 13 mmol/L; Blood Urea Nitrogen 22 mg/dL (7-17); Calcium 9.8 mg/dL (8.4-10.2); Carbon Dioxide 28 mmol/L (22-30); Chloride 103 mmol/L (98-107); Glucose 85 mg/dL (74-99); INR 0.9 (<1.2); Magnesium 1.3 mg/dL (1.6-2.3); Non-African American GFR(CKD) 79 (>60 ml/min/1.73 sqM); Partial Thromboplastin Time 22.1 sec (22.0-30.0); Phosphorus 5.5 mg/dL (2.5-4.5); Potassium 4.6 mmol/L (3.5-5.1); Prothrombin Time 10.1 sec (10.0-12.5); Salicylate <1.0 mg/dL; Sodium 144 mmol/L (137-145); Total Bilirubin 0.5 mg/dL (0.2-1.3); Total Protein 7.5 g/dL (6.3-8.2)
[2024-12-06 23:41] LABS: NT-Pro-B-Type Natriuretic Pept 49 pg/mL
[2024-12-06 23:47] LABS: Alcohol 450 mg/dL
[2024-12-06] MEDS ORDERED: LORazepam 1 MG TAB PO PRN ×3 (23:54)
[2024-12-06] MEDS ORDERED: LORazepam 2 MG/ML INJ IV PRN ×3 (23:54)
[2024-12-06] MEDS ORDERED: LORazepam 0.5 MG TAB PO PRN (23:54)
[2024-12-07] MEDS ORDERED: NALOXONE 0.4 MG/ML 1 ML VIAL IV PRN (00:07)
[2024-12-07] MEDS ORDERED: ONDANSETRON 4 MG/2 ML VIAL IVP PRN (00:07)
[2024-12-07] MEDS ORDERED: MORPHINE SULFATE 4 MG/ML SYRINGE IV PRN (00:07)
--- NOTE | 2024-12-07 00:08 | CT ---
EXAM: CT Head Without Intravenous Contrast CLINICAL HISTORY: ITS.REASON CT Reason: weakness TECHNIQUE: Axial computed tomography images of the head/brain without intravenous contrast. CTDI is 49.1 mGy and DLP is 1095.4 mGy-cm. This CT exam was performed using one or more of the following dose reduction techniques: automated exposure control, adjustment of the mA and/or kV according to patient size, and/or use of iterative reconstruction technique. COMPARISON: No relevant prior studies available. FINDINGS: No acute intracranial hemorrhage. No midline shift. The territorial seymour-white matter differentiation is maintained throughout. Calcified density along the inner table of the RIGHT temporal bone, measuring 1.2 cm, concerning for a calcified meningioma. Age-related cerebral volume loss. Periventricular and subcortical white matter hypoattenuation, consistent with chronic microangiopathy. The visualized orbits appear grossly unremarkable. The calvarium is intact. The visualized paranasal sinuses and mastoid air cells are grossly clear. IMPRESSION: No acute intracranial hemorrhage, midline shift, or mass effect. Calcified density along the inner table of the RIGHT temporal bone, measuring 1.2 cm, concerning for a calcified meningioma.
--- NOTE | 2024-12-07 00:41 | XR ---
EXAM: XR Chest, 1 View CLINICAL HISTORY: ITS.REASON XR Reason: weakness TECHNIQUE: Frontal view of the chest. COMPARISON: No relevant prior studies available. FINDINGS: Lungs: Unremarkable. No consolidation. Pleural space: Unremarkable. No pneumothorax. Heart: Unremarkable. No cardiomegaly. Mediastinum: Unremarkable. Normal mediastinal contour. Bones/joints: Unremarkable. No acute fracture. IMPRESSION: No consolidation.
[2024-12-07 01:08] LABS: Appearance,Urine Cloudy (Clear); Bacteria,Urine Rare /hpf; Bilirubin,Urine Negative (Negative); Blood,Urine Negative (Negative); Color,Urine Colorless; Glucose,Urine (UA) Negative (Negative); Hyaline Casts,Urine 6 /lpf (0-2); Ketones,Urine Negative (Negative); Leukocyte Esterase,Urine Moderate (Negative); Mucus,Urine Rare /hpf; Nitrite,Urine Negative (Negative); PH, Urine 5.5 (5.0-8.0); Protein,Urine Negative (Negative); RBC,Urine 2 /hpf (0-5); Specific Gravity,Urine 1.011 (1.001-1.035); Squamous Epithelial Cell,Urine 35 /hpf (0-4); Urobilinogen,Urine <2.0 mg/dL (<2.0); WBC,Urine 5 /hpf (0-5)
[2024-12-07] MEDS: POTASSIUM BICARBONATE/CIT AC 20 MEQ TABLET.EFF PO ONE ×2 (02:55→03:02)
[2024-12-07] MEDS: SODIUM CHLORIDE 0.9% 1,000 ML IV STA (02:58)
[2024-12-07] MEDS: MAGNESIUM OXIDE 400 MG TAB PO STA ×2 (02:58)
[2024-12-07] MEDS: MAGNESIUM SULFATE-D5W PMX 1 GM in DEXTROSE/WATER 1 100ML.BAG IVPB ONE (04:13)
[2024-12-07] MEDS: DEXTROSE 5%-0.45% NACL 1,000 ML IV SCH (06:23)
[2024-12-07] MEDS: MULTIVITAMINS, THERA 1 EACH TAB PO SCH (09:14)
[2024-12-07] MEDS: FOLIC ACID 1 MG TAB PO SCH (09:14)
[2024-12-07 12:37] LABS: Basophils % (A) 1 %; Eosinophils # (A) 0.1 k/uL (0-0.7); Eosinophils % (A) 1 %; HCT 31.9 % (34.0-46.0); HGB 10.8 gm/dL (11.4-16.0); Lymphocytes # (A) 1.9 k/uL (1.0-4.8); Lymphocytes % (A) 37 %; MCH 36.1 pg (25.0-35.0); MCHC 33.9 g/dL (31.0-37.0); MCV 106.4 fL (80.0-100.0); Macrocytosis Moderate; Mean Platelet Volume 7.9; Monocytes # (A) 0.4 k/uL (0-1.0); Monocytes % (A) 7 %; Neutrophils # (A) 2.6 k/uL (1.3-7.7); Neutrophils % (A) 52 %; Platelet Count 247 k/uL (150-450); RDW 14.5 % (11.5-15.5); WBC 5.1 k/uL (3.8-10.6)
[2024-12-07 13:17] LABS: ALT 14 U/L (4-34); AST 27 U/L (14-36); African American GFR (CKD) >90 (>60 ml/min/1.73 sqM); Albumin 3.7 g/dL (3.5-5.0); Albumin/Globulin Ratio 1.7; Alkaline Phosphatase 80 U/L (38-126); Anion Gap 9 mmol/L; Blood Urea Nitrogen 19 mg/dL (7-17); Calcium 8.8 mg/dL (8.4-10.2); Carbon Dioxide 25 mmol/L (22-30); Chloride 99 mmol/L (98-107); Globulin 2.2 g/dL; Glucose 76 mg/dL (74-99); Magnesium 1.3 mg/dL (1.6-2.3); Non-African American GFR(CKD) >90 (>60 ml/min/1.73 sqM); Potassium 3.9 mmol/L (3.5-5.1); Sodium 133 mmol/L (137-145); Total Bilirubin 0.8 mg/dL (0.2-1.3); Total Protein 5.9 g/dL (6.3-8.2)
[2024-12-07] MEDS ORDERED: cloNIDine HCL 0.1 MG TAB PO PRN (14:24)
[2024-12-07] MEDS: chlordiazePOXIDE 25 MG CAP PO SCH (17:14)
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
[2024-12-08 06:30] LABS: Basophils % (A) 1 %; Eosinophils % (A) 1 %; HCT 35.2 % (34.0-46.0); HGB 11.9 gm/dL (11.4-16.0); Lymphocytes # (A) 1.1 k/uL (1.0-4.8); Lymphocytes % (A) 31 %; MCH 35.9 pg (25.0-35.0); MCHC 33.7 g/dL (31.0-37.0); MCV 106.6 fL (80.0-100.0); Macrocytosis Moderate; Mean Platelet Volume 8.5; Monocytes # (A) 0.3 k/uL (0-1.0); Monocytes % (A) 8 %; Neutrophils % (A) 57 %; Platelet Count 248 k/uL (150-450); RDW 14.9 % (11.5-15.5); WBC 3.5 k/uL (3.8-10.6)
[2024-12-08 06:44] LABS: ALT 14 U/L (4-34); AST 27 U/L (14-36); African American GFR (CKD) >90 (>60 ml/min/1.73 sqM); Albumin 4.1 g/dL (3.5-5.0); Alkaline Phosphatase 117 U/L (38-126); Anion Gap 10 mmol/L; Blood Urea Nitrogen 14 mg/dL (7-17); Calcium 9.7 mg/dL (8.4-10.2); Carbon Dioxide 27 mmol/L (22-30); Chloride 97 mmol/L (98-107); Glucose 138 mg/dL (74-99); Magnesium 1.4 mg/dL (1.6-2.3); Non-African American GFR(CKD) >90 (>60 ml/min/1.73 sqM); Phosphorus 3.4 mg/dL (2.5-4.5); Sodium 134 mmol/L (137-145); Total Protein 6.5 g/dL (6.3-8.2)
--- NOTE | 2024-12-08 10:15 | P.CONS ---
History of Present Illness - Reason for Consult Consult date: 12/07/24 Right thumb burn with blistering Requesting physician: Anastacia Rogel - Chief Complaint Right thumb blister pain and swelling x 1 day - History of Present Illness Patient is a 59-year-old female past medical history of significant for diabetes mellitus seizure disorder and syncope presenting to the hospital for evaluation of mental status changes/speech and apparently the patient did have a blister to the right thumb area which apparently started from a heating blanket, prompting this consultation patient denies having any fever or any chills denies any headache or URI symptoms no chest pain some shortness with no significant cough and abdominal pain has been complaining of burning pain to the right thumb area mild to moderate intense without radiation patient on presentation to hospital was afebrile no fever have recorded subsequently patient was not tachycardic hypotensive or hypoxic patient did have white count of 5.1 creatinine 0.66 lactic acid was 2.5 repeat is 1.7 liver isms are normal patient did have CT of the brain that was negative for any bleed and the concern for possible calcified mangioma, patient did have a chest x-ray that was r eported negative for any consolidation the patient has been in the hospital infectious he was consulted regarding right thumb wound with blistering Review of Systems Positive point and negatives has been mentioned in the HPI, complete review of systems was performed and all other systems are negative Past Medical History Past Medical History: Diabetes Mellitus, Seizure Disorder, Syncope Additional Past Medical History / Comment(s): Diet controlled diabetes, pt states she has drank heavier off and on over her adult years and has been drinking heavier/daily since her brother's recent 2 weeks ago, she believes she may have withdrawal in the past as "shakes", past benign brain tumor and pt states recently found thru 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 History of Any Multi-Drug Resistant Organisms: None Reported Past Surgical History: Breast Surgery, Tubal Ligation Additional Past Surgical History / Comment(s): Cervical conization for pre- cancer, bilateral breast benign lumpectomies/has markers, colonoscopy. Past Anesthesia/Blood Transfusion Reactions: Motion Sickness Additional Past Anesthesia/Blood Transfusion Reaction / Comm: Pt states she has a fear of anesthesia and wakes up trying to get up. Past Psychological History: Anxiety, Depression Smoking Status: Current every day smoker Past Alcohol Use History: Occasional Past Drug Use History: None Reported - Past Family History Father Family Medical History: CVA/TIA Additional Family Medical History / Comment(s): Father had a cva and . Mother Family Medical History: Cancer Additional Family Medical History / Comment(s): Mother of brain cancer at the age of 66 yrs. Medications and Allergies Home Medications Medication Instructions Recorded Confirmed Type Multivitamins, Thera [Multivitamin 1 tab PO DAILY 09/11/21 12/07/24 History (formulary)] Magnesium Oxide [Mag-Ox] 400 mg PO DAILY 03/08/24 12/07/24 History Metoprolol Succinate [Toprol XL] 50 mg PO DAILY 03/08/24 12/07/24 History Potassium Chloride [Klor-Con M20] 20 meq PO DAILY 03/08/24 12/07/24 History lisinopriL [Zestril] 5 mg PO DAILY 03/08/24 12/07/24 History Cetirizine HCl [Zyrtec] 10 mg PO DAILY PRN 12/07/24 12/07/24 History Cyanocobalamin (Vitamin B-12) 1,000 mcg PO DAILY 12/07/24 12/07/24 History [Vitamin B-12] Folic Acid 1 mg PO DAILY #30 tab 12/08/24 Rx SILVER sulfADIAZINE CREAM 1 applic TOPICAL DAILY each 12/08/24 Rx [Silvadene Cream] chlordiazePOXIDE HCl [Librium] 25 mg PO TID #6 cap 12/08/24 Rx Allergies Allergy/AdvReac Type Severity Reaction Status Date / Time Penicillins Allergy Rash/Hives Verified 12/07/24 07:58 Physical Exam Vitals: Vital Signs Temp Pulse Resp BP Pulse Ox 12/07/24 13:39 98.8 F 116 H 20 153/99 96 12/07/24 09:12 98.3 F 85 14 145/85 97 12/07/24 06:40 87 17 137/88 98 12/07/24 03:00 92 17 112/92 95 12/06/24 22:45 78 17 96/71 97 GENERAL DESCRIPTION: Middle-aged male lying in bed, no distress. No tachypnea or accessory muscle of respiration use. HEENT: Shows Pallor , no scleral icterus. Oral mucous membrane is dry. NECK: Trachea central, no thyromegaly. LUNGS: Unlabored breathing. Clear to auscultation anteriorly. No wheeze or crackle. HEART: S1, S2, regular rate and rhythm. No loud murmur ABDOMEN: Soft, no tenderness , guarding or rigidity, no organomegaly EXTREMITIES: Right thumb on the palmar aspect did have a blister no significant surrounding redness or drainage SKIN: No rash, no masses palpable. NEUROLOGICAL: The patient is awake, alert, oriented x3, mood and affect normal. Results CBC & Chem 7: 12/08/24 05:44 12/08/24 05:44 Labs: Abnormal Lab Results - Last 24 Hours (Table) 12/06/24 12/06/24 12/06/24 Range/Units 22:53 22:53 22:53 RBC 3.69 L (3.80-5.40) m/uL Hgb (11.4-16.0) gm/dL Hct (34.0-46.0) % MCV 106.8 H (80.0-100.0) fL MCH 36.4 H (25.0-35.0) pg Neutrophils # 1.2 L (1.3-7.7) k/uL Sodium (137-145) mmol/L BUN 22 H (7-17) mg/dL Plasma Lactic Acid Siai 3.1 H* (0.7-2.0) mmol/L Phosphorus 5.5 H (2.5-4.5) mg/dL Magnesium 1.3 L (1.6-2.3) mg/dL Total Protein (6.3-8.2) g/dL Urine Appearance (Clear) Ur Leukocyte Esterase (Negative) Ur Squamous Epith Cells (0-4) /hpf Urine Bacteria (None) /hpf Hyaline Casts (0-2) /lpf Urine Mucus (None) /hpf Serum Alcohol 450 H* mg/dL 12/06/24 12/07/24 12/07/24 Range/Units 23:45 02:34 06:24 RBC (3.80-5.40) m/uL Hgb (11.4-16.0) gm/dL Hct (34.0-46.0) % MCV (80.0-100.0) fL MCH (25.0-35.0) pg Neutrophils # (1.3-7.7) k/uL Sodium (137-145) mmol/L BUN (7-17) mg/dL Plasma Lactic Acid Isai 3.1 H* 2.5 H* (0.7-2.0) mmol/L Phosphorus (2.5-4.5) mg/dL Magnesium (1.6-2.3) mg/dL Total Protein (6.3-8.2) g/dL Urine Appearance Cloudy H (Clear) Ur Leukocyte Esterase Moderate H (Negative) Ur Squamous Epith Cells 35 H (0-4) /hpf Urine Bacteria Rare H (None) /hpf Hyaline Casts 6 H (0-2) /lpf Urine Mucus Rare H (None) /hpf Serum Alcohol mg/dL 12/07/24 12/07/24 Range/Units 12:00 12:00 RBC 3.00 L (3.80-5.40) m/uL Hgb 10.8 L (11.4-16.0) gm/dL Hct 31.9 L (34.0-46.0) % MCV 106.4 H (80.0-100.0) fL MCH 36.1 H (25.0-35.0) pg Neutrophils # (1.3-7.7) k/uL Sodium 133 L (137-145) mmol/L BUN 19 H (7-17) mg/dL Plasma Lactic Acid Isai (0.7-2.0) mmol/L Phosphorus (2.5-4.5) mg/dL Magnesium 1.3 L (1.6-2.3) mg/dL Total Protein 5.9 L (6.3-8.2) g/dL Urine Appearance (Clear) Ur Leukocyte Esterase (Negative) Ur Squamous Epith Cells (0-4) /hpf Urine Bacteria (None) /hpf Hyaline Casts (0-2) /lpf Urine Mucus (None) /hpf Serum Alcohol mg/dL Assessment and Plan (1) Second degree burn of right thumb Current Visit: Yes Status: Acute Code(s): T23.211A - BURN OF SECOND DEGREE OF RIGHT THUMB (NAIL), INIT ENCNTR SNOMED Code(s): 95957468311200001 Plan: 1patient presenting to the hospital for evaluation of mental status changes/speech alcohol toxicity with alcohol level of 450 has developed a blister on the right thumb from a heating blanket with a second-degree burn, no evidence of any secondary cellulitis 2we will recommend to keep the area covered if the area started to open Will apply Silvadene cream 3no need for system antibiotic at this point We will follow on clinical condition and cultures to further adjust medication if needed Thank you for this consultation we will follow the patient along with you Dictation was produced using [employer] dictation software. please excuse any grammatical, word or spelling errors. Time with Patient: Greater than 30
--- NOTE | 2024-12-08 11:45 | P.PN ---
Subjective Progress Note Date: 12/08/24 Principal diagnosis: Reason for follow-up is right thumb second-degree burn injury Patient is a 59-year-old female past medical history of significant for diabetes mellitus seizure disorder and syncope presenting to the hospital for evaluation of mental status changes/speech and apparently the patient did have a blister to the right thumb area which apparently started from a heating blanket. On today's evaluation that is 12/08/2024,the patient denies any fever or any chills, patient is breathing comfortably on room air, the patient denies chest pain shortness of breath and no significant cough, patient denies abdominal pain, no nausea vomiting or diarrhea. Patient denies any worsening pain to the right thumb still a blister has opened up. Patient white count is 3.5, creatinine 0.65 liver enzymes are normal Objective - Vital Signs Vital signs: Vital Signs Temp 98.2 F 12/08/24 08:00 Pulse 98 12/08/24 08:00 Resp 17 12/08/24 08:00 BP 139/91 12/08/24 08:00 Pulse Ox 99 12/08/24 08:00 FiO2 Intake & Output 12/07/24 12/08/24 12/08/24 18:59 06:59 18:59 Intake Total 118 Balance 118 Weight 46.72 kg Intake: Oral 118 Other: Voiding Method Toilet Toilet # Voids 1 - Exam GENERAL DESCRIPTION: Middle-age female lying in bed in no distress RESPIRATORY SYSTEM: Unlabored breathing , decreased breath sounds at bases HEART: S1 S2 regular rate and rhythm , ABDOMEN: Soft , no tenderness EXTREMITIES: Right thumb is currently dressed no drainage - Labs CBC & Chem 7: 12/08/24 05:44 12/08/24 05:44 Labs: Abnormal Lab Results - Last 24 Hours (Table) 12/07/24 12/07/24 12/08/24 Range/Units 12:00 12:00 05:44 WBC 3.5 L (3.8-10.6) k/uL RBC 3.00 L 3.30 L (3.80-5.40) m/uL Hgb 10.8 L (11.4-16.0) gm/dL Hct 31.9 L (34.0-46.0) % MCV 106.4 H 106.6 H (80.0-100.0) fL MCH 36.1 H 35.9 H (25.0-35.0) pg Sodium 133 L (137-145) mmol/L Chloride (98-107) mmol/L BUN 19 H (7-17) mg/dL Glucose (74-99) mg/dL Magnesium 1.3 L (1.6-2.3) mg/dL Total Protein 5.9 L (6.3-8.2) g/dL 12/08/24 Range/Units 05:44 WBC (3.8-10.6) k/uL RBC (3.80-5.40) m/uL Hgb (11.4-16.0) gm/dL Hct (34.0-46.0) % MCV (80.0-100.0) fL MCH (25.0-35.0) pg Sodium 134 L (137-145) mmol/L Chloride 97 L (98-107) mmol/L BUN (7-17) mg/dL Glucose 138 H (74-99) mg/dL Magnesium 1.4 L (1.6-2.3) mg/dL Total Protein (6.3-8.2) g/dL Assessment and Plan (1) Second degree burn of right thumb Current Visit: Yes Status: Acute Code(s): T23.211A - BURN OF SECOND DEGREE OF RIGHT THUMB (NAIL), INIT ENCNTR SNOMED Code(s): 13372047420813594 Plan: 1patient presenting to the hospital for evaluation of mental status changes/speech alcohol toxicity with alcohol level of 450 has developed a blister on the right thumb from a heating blanket with a second-degree burn, no evidence of any secondary cellulitis 2advise to keep the area covered if the blister ruptured on only then to apply Silvadene cream 3currently no need for system antibiotic therapy has no evidence of cellulitis Dictation was produced using [employer] dictation software. please excuse any grammatical, word or spelling errors. Time with Patient: Less than 30
[2024-12-08 14:22] VITALS: BMI 18.8
[2024-12-09 08:59] VITALS: BP 133/84; RESP 16; TEMP 98
[2024-12-09 10:50] VITALS: PULSE 70
--- NOTE | 2024-12-09 11:47 | P.DS ---
Providers Date of admission: 12/07/24 00:08 Expected date of discharge: 12/08/24 Attending physician: Eliza Lowe Consults: 12/07/24 16:08 Consult Physician Urgent Consulting Provider: Valeria Callahan Consult Reason/Comments: right thumb burn with blistering Do you want consulting provider notified?: Yes Primary care physician: Teodora Lewis Hospital Course: Final diagnosis Acute alcohol intoxication with acute early delirium tremens Right thumb burn and blister, patient does not recall how it occurred Diabetes mellitus, type II History of seizure disorder History of syncope GI prophylaxis DVT prophylaxis Full code Discharge disposition Patient is being discharged in a stable condition with guarded prognosis to home. Patient will follow-up with Dr. Lewis in the outpatient setting upon discharge. Patient is to continue with Silvadene cream to the right thumb daily along with a Librium taper. Patient strongly encouraged to attend inpatient alcohol rehab and recommend outpatient follow-up with [facility] as scheduled. Total time taken is greater than 35 minutes. Hospital course This is a 59-year-old female who was recently admitted with alcohol intoxication and slurred speech alcohol was noted to be 450 maintained on CIWA protocol. Patient also sustained a burn on the right thumb and unsure how it happened. Continue with Silvadene cream per ID recommendation. Strongly recommend inpatient alcohol rehab and complete alcohol cessation. Patient will be discharged today and resources provided for rehab. Currently no reports of chest pain, shortness of breath, or palpitations. Patient is afebrile. No reports of nausea or vomiting and patient is tolerating diet. Patient will be discharged home today. High risk for readmissions given patient's continued ongoing alcohol use Physical exam: Gen: This is a 59-year-old female who is awake, alert and oriented x 3, well- developed, thin build, appears older than stated age HEENT: Head is atraumatic, normocephalic. Pupils equal, round. Sclerae is anicteric. NECK: Supple. No JVD. No lymphadenopathy. No thyromegaly. LUNGS: Diminished breath sounds bilaterally otherwise clear to auscultation. No wheezes or rhonchi. No intercostal retractions. HEART: Regular rate and rhythm. No murmur. ABDOMEN: Soft. Thin. Bowel sounds are present. No masses. No tenderness. EXTREMITIES: No pedal edema. No calf tenderness. NEUROLOGICAL: Patient is awake, alert and oriented x3. Cranial nerves 2 through 12 are grossly intact. Please refer to medication reconciliation sheet for a list of medications. The impression and plan of care has been dictated by Anastacia Rogel, Nurse Practitioner as directed. Dr. Mynor MD I have performed a history and examination and MDM of this patient, discussed the same with the dictator, and agree with the dictator's assessment and plan as written ,documented as a scribe. Based on total visit time, I have performed more than 50% of the visit. Patient Condition at Discharge: Fair Plan - Discharge Summary Discharge Rx Participant: No New Discharge Prescriptions: New Folic Acid 1 mg PO DAILY #30 tab SILVER sulfADIAZINE CREAM [Silvadene Cream] 1 applic TOPICAL DAILY each chlordiazePOXIDE HCl [Librium] 25 mg PO TID #6 cap Continue Magnesium Oxide [Mag-Ox] 400 mg PO DAILY Potassium Chloride [Klor-Con M20] 20 meq PO DAILY Cetirizine HCl [Zyrtec] 10 mg PO DAILY PRN PRN Reason: Allergy Symptoms Cyanocobalamin (Vitamin B-12) [Vitamin B-12] 1,000 mcg PO DAILY Multivitamins, Thera [Multivitamin (formulary)] 1 tab PO DAILY lisinopriL [Zestril] 5 mg PO DAILY Metoprolol Succinate [Toprol XL] 50 mg PO DAILY Discharge Medication List Multivitamins, Thera [Multivitamin (formulary)] 1 tab PO DAILY 09/11/21 [History] Magnesium Oxide [Mag-Ox] 400 mg PO DAILY 03/08/24 [History] Metoprolol Succinate [Toprol XL] 50 mg PO DAILY 03/08/24 [History] Potassium Chloride [Klor-Con M20] 20 meq PO DAILY 03/08/24 [History] lisinopriL [Zestril] 5 mg PO DAILY 03/08/24 [History] Cetirizine HCl [Zyrtec] 10 mg PO DAILY PRN 12/07/24 [History] Cyanocobalamin (Vitamin B-12) [Vitamin B-12] 1,000 mcg PO DAILY 12/07/24 [History] Folic Acid 1 mg PO DAILY #30 tab 12/08/24 [Rx] SILVER sulfADIAZINE CREAM [Silvadene Cream] 1 applic TOPICAL DAILY each 12/08/24 [Rx] chlordiazePOXIDE HCl [Librium] 25 mg PO TID #6 cap 12/08/24 [Rx] Follow up Appointment(s)/Referral(s): Teodora Lewis MD [Primary Care Provider] - 1-2 days Activity/Diet/Wound Care/Special Instructions: Activity limited until follow-up Follow-up with primary care provider on discharge Continue to use Librium taper and avoid alcohol intake Recommend inpatient alcohol rehab Continue with Silvadene daily to the area and avoid popping and if does, recommend meticulous handwashing and keeping the area covered while working Discharge/Stand Alone Forms: AA Meetings [place], Outpatient Counseling, In Substance Abuse Facilities Discharge Disposition: HOME SELF-CARE
--- NOTE | 2024-12-09 12:43 | P.PN ---
Subjective Progress Note Date: 12/09/24 Principal diagnosis: Reason for follow-up is right thumb second-degree burn injury Patient is a 59-year-old female past medical history of significant for diabetes mellitus seizure disorder and syncope presenting to the hospital for evaluation of mental status changes/speech and apparently the patient did have a blister to the right thumb area which apparently started from a heating blanket. On today's evaluation that is 12/09/2024,the patient remains to be afebrile, patient is on room air not requiring supplemental oxygen and denies any shortness of breath no chest pain or cough.Patient denies having any nausea or vomiting, no abdominal pain and no diarrhea has been reported, denies any worsening pain to the right thumb area. No new lab has been repeated today Objective - Vital Signs Vital signs: Vital Signs Temp 98 F 12/09/24 06:50 Pulse 84 12/09/24 06:50 Resp 16 12/09/24 06:50 BP 133/84 12/09/24 06:50 Pulse Ox 98 12/09/24 06:50 FiO2 Intake & Output 12/08/24 12/09/24 12/09/24 18:59 06:59 18:59 Intake Total 118 Balance 118 Weight 46.72 kg Intake: Oral 118 Other: Voiding Method Toilet Toilet - Exam GENERAL DESCRIPTION: Middle-age female lying in bed in no distress RESPIRATORY SYSTEM: Unlabored breathing , decreased breath sounds at bases HEART: S1 S2 regular rate and rhythm , ABDOMEN: Soft , no tenderness EXTREMITIES: Right thumb is currently dressed no drainage - Labs CBC & Chem 7: 12/08/24 05:44 12/08/24 05:44 Assessment and Plan (1) Second degree burn of right thumb Current Visit: Yes Status: Acute Code(s): T23.211A - BURN OF SECOND DEGREE OF RIGHT THUMB (NAIL), INIT ENCNTR SNOMED Code(s): 87275487581037908 Plan: 1patient presenting to the hospital for evaluation of mental status changes/speech alcohol toxicity with alcohol level of 450 has developed a blister on the right thumb from a heating blanket with a second-degree burn, no evidence of any secondary cellulitis 2advise to keep the area covered if the blister ruptured on only then to apply Silvadene cream and no need for dyer assistant Olive by therapy on discharge as no evidence of cellulitis Dictation was produced using [employer] software. please excuse any grammatical, word or spelling errors.
== END 2024-12-09 15:38 | disposition home or self-care (01) ==
LOC: EC 22:43 → 5NMEDONC 12-07 00:08 → 1SOBS 12-07 19:05
PROVIDERS: ADMIT Hospitalist; ATTEND Hospitalist
DX: F10.231 Alcohol dependence with withdrawal delirium (principal); F10.229 Alcohol dependence with intoxication, unspecified; T23.211A Burn of second degree of right thumb (nail), initial encounter; X19.XXXA Contact with other heat and hot substances, initial encounter; E83.42 Hypomagnesemia; E11.9 Type 2 diabetes mellitus without complications; F32.A Depression, unspecified; F41.9 Anxiety disorder, unspecified; F17.200 Nicotine dependence, unspecified, uncomplicated; Y90.8 Blood alcohol level of 240 mg/100 ml or more; Z79.899 Other long term (current) drug therapy; Z88.0 Allergy status to penicillin; G40.909 Epilepsy, unspecified, not intractable, without status epilepticus
CPT/HCPCS: 96361; 96365; 99285; 36415; 93005; 83880; 80053 ×3; 82375; 83605 ×2; 83735 ×3; 84100 ×2; 84484; 85025 ×3; 85610; 85730; 81001; 80143; 80179; 71045; 70450; G0378 ×3; G0480; J3475; 80320

== ENCOUNTER 2025-01-09 06:08 | Inpatient (IN) | payer OTHER ==
--- NOTE | 2025-01-09 06:22 | ED ---
Fall HPI - General Chief Complaint: Fall Stated Complaint: fall Time Seen by Provider: 01/09/25 06:20 Source: patient, EMS, RN notes reviewed, old records reviewed Mode of arrival: EMS Limitations: physical limitation - History of Present Illness Initial Comments: Patient is a 59-year-old female presented the ER via EMS for evaluation of fall. Patient states she fell from her couch landing on her right hip and was stuck in between her couch and a small coffee table for approximately 5 hours. She was unable to get up given the pain causing her to defecate on herself. Patient denies any head injury, loss of consciousness or blood thinner use. She was reporting most of her pain to her right hip and states it feels "swollen". Patient did receive 50 mcg of fentanyl by EMS prior to arrival. She is currently rating her pain an 8 out of 10. She denies any dizziness, lightheadedness, chest pain or shortness of breath prior to fall. No other com plaints at this time. - Related Data Home Medications Medication Instructions Recorded Confirmed Multivitamins, Thera [Multivitamin 1 tab PO DAILY 09/11/21 12/07/24 (formulary)] Magnesium Oxide [Mag-Ox] 400 mg PO DAILY 03/08/24 12/07/24 Metoprolol Succinate [Toprol XL] 50 mg PO DAILY 03/08/24 12/07/24 Potassium Chloride [Klor-Con M20] 20 meq PO DAILY 03/08/24 12/07/24 lisinopriL [Zestril] 5 mg PO DAILY 03/08/24 12/07/24 Cetirizine HCl [Zyrtec] 10 mg PO DAILY PRN 12/07/24 12/07/24 Cyanocobalamin (Vitamin B-12) 1,000 mcg PO DAILY 12/07/24 12/07/24 [Vitamin B-12] Previous Rx's Medication Instructions Recorded Folic Acid 1 mg PO DAILY #30 tab 12/08/24 SILVER sulfADIAZINE CREAM 1 applic TOPICAL DAILY each 12/08/24 [Silvadene Cream] chlordiazePOXIDE HCl [Librium] 25 mg PO TID #6 cap 12/08/24 Allergies Allergy/AdvReac Type Severity Reaction Status Date / Time Penicillins Allergy Rash/Hives Verified 01/09/25 06:13 Review of Systems ROS Statement: Those systems with pertinent positive or pertinent negative responses have been documented in the HPI. ROS Other: All systems not noted in ROS Statement are negative. 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 History of Any Multi-Drug Resistant Organisms: None Reported Past Surgical History: Breast Surgery, Tubal Ligation Additional Past Surgical History / Comment(s): Cervical conization for pre- cancer, bilateral breast benign lumpectomies/has markers, colonoscopy. Past Anesthesia/Blood Transfusion Reactions: Motion Sickness Additional Past Anesthesia/Blood Transfusion Reaction / Comment(s): Pt states she has a fear of anesthesia and wakes up trying to get up. Past Psychological History: Anxiety, Depression Smoking Status: Current every day smoker Past Alcohol Use History: Occasional Past Drug Use History: None Reported - Past Family History Father Family Medical History: CVA/TIA Additional Family Medical History / Comment(s): Father had a cva and . Mother Family Medical History: Cancer Additional Family Medical History / Comment(s): Mother of brain cancer at the age of 66 yrs. General Exam Limitations: no limitations General appearance: alert, in no apparent distress Head exam: Present: atraumatic, normocephalic, normal inspection Respiratory exam: Present: normal lung sounds bilaterally. Absent: respiratory distress, wheezes, rales, rhonchi, stridor Cardiovascular Exam: Present: normal rhythm, tachycardia GI/Abdominal exam: Present: soft, normal bowel sounds. Absent: distended, tenderness, guarding, rebound, rigid Extremities exam: Present: normal capillary refill (2+ bilateral DP/PT pulses.), other (Right hip is shortened and externally rotated. Contusion to left knee) Neurological exam: Present: alert, oriented X3, CN II-XII intact Skin exam: Present: warm, dry, intact, normal color. Absent: rash Course Vital Signs 01/09/25 01/09/25 01/09/25 06:09 06:35 07:49 Temperature 98.2 F Pulse Rate 133 H 116 H 98 Respiratory 22 22 18 Rate Blood Pressure 148/87 149/85 132/83 O2 Sat by Pulse 99 98 100 Oximetry - Reevaluation(s) Reevaluation #1: 01/09/25 07:32 Case discussed with on-call orthopedics, Dr. Espionza. He requested CT right hip and long bone femur xray along with medicine admission. He plans on surgical intervention after improvement of rhabdomyolysis. 01/09/25 07:50 Case discussed with [facility], Dr. Lew who accepts admission. Medical Decision Making - Medical Decision Making Was pt. sent in by a medical professional or institution (, PA, STENOCAPTIONER, urgent care, hospital, or senior care...) When possible be specific @ -No Did you speak to anyone other than the patient for history (EMS, parent, family, police, friend...)? What history was obtained from this source @ -No Did you review nursing and triage notes (agree or disagree)? Why? @ -I reviewed and agree with nursing and triage notes Were old charts reviewed (outside hosp., previous admission, EMS record, old EKG, old radiological studies, urgent care reports/EKG's, senior care records)? Report findings @ -No old charts were reviewed Differential Diagnosis (chest pain, altered mental status, abdominal pain women, abdominal pain men, vaginal bleeding, weakness, fever, dyspnea, syncope, headache, dizziness, GI bleed, back pain, seizure, CVA, palpatations, mental health, musculoskeletal)? @ -Fracture, dislocation, contusion, hematoma, intracranial hemorrhage, concus alejandro, abrasion, laceration this list does not like to be all-inclusive EKG interpreted by me (3pts min.). @ -As above X-rays interpreted by me (1pt min.). @ -Right hip AP pelvis x-ray interpreted by me showing a comminuted IT fracture CT interpreted by me (1pt min.). @ -None done U/S interpreted by me (1pt. min.). @ -None done What testing was considered but not performed or refused? (CT, X-rays, U/S, labs)? Why? @ -None What meds were considered but not given or refused? Why? @ -None Did you discuss the management of the patient with other professionals (professionals i.e. , PA, STENOCAPTIONER, lab, RT, psych nurse, clinical social work therapist, carpenter supervisor, teacher, chief security officer, employment evaluator/case manager)? Give summary @ -Case was discussed with on-call orthopedics, Dr. Espinoza. He requested CT right hip, long bone femur x-ray and admission to medicine for treatment of rhabdomyolysis. He plans on surgical intervention after rhabdomyolysis resolves. Case also discussed with [facility], Dr. Lew accepts admission. Was smoking cessation discussed for >3mins.? @ -No Was critical care preformed (if so, how long)? @ -No Were there social determinants of health that impacted care today? How? (Homelessness, low income, unemployed, alcoholism, drug addiction, transportation, low edu. Level, literacy, decrease access to med. care, longterm, rehab)? @ -No Was there de-escalation of care discussed even if they declined (Discuss DNR or withdrawal of care, Hospice)? DNR status @ -No What co-morbidities impacted this encounter? (DM, HTN, Smoking, COPD, CAD, Cancer, CVA, ARF, Chemo, Hep., AIDS, mental health diagnosis, sleep apnea, morbid obesity)? @ -Diabetes mellitus, seizure disorder Was patient admitted / discharged? Hospital course, mention meds given and route, prescriptions, significant lab abnormalities, going to OR and other pertinent info. @ -Admitted. 59-year-old female presented to the ER via EMS for evaluation of a fall. Upon rooming, history and physical exam completed. Patient is tachycardic at 133 bpm, vitals otherwise of acceptable limits. Tachycardia believed to be due to pain. Patient is neurovascularly intact. Right leg is shortened and externally rotated. Laboratory studies showed a leukocytosis of 11.3 with a left shift. Hemoglobin 11.1, baseline. Patient appears to be in rhabdomyolysis with a CK of 2,497. BUN 19, creatinine 0.68 with a GFR greater than 90. UA without signs of infections. 2+ ketones and trace protein concerning of dehydration. Viral swabs negative. Right hip x-ray showing a comminuted IT fracture. Xray findings discussed with on-call orthopedics, Dr. Espinoza. He requested CT right hip, long bone femur xray and admission to medicine for treatment of rhabdomyolysis. He plans on surgical intervention once rhabdomyolyisi improves. Case also discussed with [facility], Dr. Lew, who accepts admission. Orthopedics and nephrology on consult. Patient given IV fluid bolus and started on maintenance fluids at 200 cc/h. Pain controlled in the ER with IV Dilaudid and toradol. Upon reevaluation , patient resting comfortably on stretcher no signs of acute distress. Results discussed with patient, all questions answered. Patient agreeable for admission. Patient admitted in stable condition. Case discussed with ED attending, Dr. Butcher. Undiagnosed new problem with uncertain prognosis? @ -No Drug Therapy requiring intensive monitoring for toxicity (Heparin, Nitro, Insulin, Cardizem)? @ -No Were any procedures done? @ -No Diagnosis/symptom? @ -IT fracture/Rhabdomyolysis Acute, or Chronic, or Acute on Chronic? @ -Acute Uncomplicated (without systemic symptoms) or Complicated (systemic symptoms)? @ -Complicated Side effects of treatment? @ -No Exacerbation, Progression, or Severe Exacerbation? @ -No Poses a threat to life or bodily function? How? (Chest pain, [place], [place], pneumonia, PE, COPD, DKA, ARF, appy, cholecystitis, CVA, Diverticulitis, Homicidal, Suicidal, threat to staff... and all critical care pts) @ -Yes - Lab Data Result diagrams: 01/09/25 06:31 01/09/25 06:31 Lab Results 01/09/25 01/09/25 01/09/25 Range/Units 06:31 06:31 06:31 WBC 11.3 H (3.8-10.6) k/uL RBC 3.24 L (3.80-5.40) m/uL Hgb 11.1 L (11.4-16.0) gm/dL Hct 32.9 L (34.0-46.0) % MCV 101.6 H D (80.0-100.0) fL MCH 34.1 (25.0-35.0) pg MCHC 33.6 (31.0-37.0) g/dL RDW 13.9 (11.5-15.5) % Plt Count 252 (150-450) k/uL MPV 8.5 Neutrophils % 84 % Lymphocytes % 9 % Monocytes % 4 % Eosinophils % 1 % Basophils % 0 % Neutrophils # 9.5 H (1.3-7.7) k/uL Lymphocytes # 1.0 (1.0-4.8) k/uL Monocytes # 0.5 (0-1.0) k/uL Eosinophils # 0.2 (0-0.7) k/uL Basophils # 0.0 (0-0.2) k/uL Macrocytosis Slight Sodium 138 (137-145) mmol/L Potassium 3.9 (3.5-5.1) mmol/L Chloride 99 (98-107) mmol/L Carbon Dioxide 26 (22-30) mmol/L Anion Gap 13 mmol/L BUN 19 H (7-17) mg/dL Creatinine 0.68 (0.52-1.04) mg/dL Est GFR (CKD-EPI)AfAm >90 (>60 ml/min/1.73 sqM) Est GFR (CKD-EPI)NonAf >90 (>60 ml/min/1.73 sqM) Glucose 129 H (74-99) mg/dL Calcium 9.7 (8.4-10.2) mg/dL Total Bilirubin 1.6 H (0.2-1.3) mg/dL AST 80 H (14-36) U/L ALT 29 (4-34) U/L Alkaline Phosphatase 83 (38-126) U/L Creatine Kinase 2497 H* (30-135) U/L Total Protein 7.2 (6.3-8.2) g/dL Albumin 4.6 (3.5-5.0) g/dL Influenza Type A (PCR) Not Detected (Not Detectd) Influenza Type B (PCR) Not Detected (Not Detectd) RSV (PCR) Not Detected (Not Detectd) SARS-CoV-2 (PCR) Not Detected (Not Detectd) - EKG Data -: EKG Interpreted by Me EKG Comments: EKG taken at 6: 26 showing a sinus tachycardia. No ST segment elevations or depressions. No T wave inversions. Ventricular rate 111, OR interval 121, QRS duration 73, QT/QTc 274/340. - Radiology Data Radiology results: report reviewed, image reviewed Disposition Clinical Impression: Fall, Rhabdomyolysis, Intertrochanteric fracture of right hip Disposition: ADMITTED IP TO THIS HOSP Condition: Stable Time of Disposition: 07:33
[2025-01-09] MEDS: SODIUM CHLORIDE 0.9% 1,000 ML IV STA ×2 (06:47→08:28)
[2025-01-09] MEDS: HYDROmorphone 0.5 MG/0.5 ML SYRINGE IVP STA (06:47)
[2025-01-09] MEDS: KETOROLAC 15 MG/ML 1 ML VIAL IVP STA (06:47)
[2025-01-09 06:48] LABS: Basophils % (A) 0 %; Eosinophils # (A) 0.2 k/uL (0-0.7); Eosinophils % (A) 1 %; HCT 32.9 % (34.0-46.0); HGB 11.1 gm/dL (11.4-16.0); Lymphocytes % (A) 9 %; MCH 34.1 pg (25.0-35.0); MCHC 33.6 g/dL (31.0-37.0); Macrocytosis Slight; Mean Platelet Volume 8.5; Monocytes # (A) 0.5 k/uL (0-1.0); Monocytes % (A) 4 %; Neutrophils # (A) 9.5 k/uL (1.3-7.7); Neutrophils % (A) 84 %; Platelet Count 252 k/uL (150-450); RBC 3.24 m/uL (3.80-5.40); RDW 13.9 % (11.5-15.5); WBC 11.3 k/uL (3.8-10.6)
[2025-01-09 06:57] LABS: MCV 101.6 fL (80.0-100.0)
[2025-01-09 07:04] LABS: ALT 29 U/L (4-34); AST 80 U/L (14-36); African American GFR (CKD) >90 (>60 ml/min/1.73 sqM); Albumin 4.6 g/dL (3.5-5.0); Alkaline Phosphatase 83 U/L (38-126); Anion Gap 13 mmol/L; Blood Urea Nitrogen 19 mg/dL (7-17); Calcium 9.7 mg/dL (8.4-10.2); Carbon Dioxide 26 mmol/L (22-30); Chloride 99 mmol/L (98-107); Glucose 129 mg/dL (74-99); Non-African American GFR(CKD) >90 (>60 ml/min/1.73 sqM); Potassium 3.9 mmol/L (3.5-5.1); Sodium 138 mmol/L (137-145); Total Bilirubin 1.6 mg/dL (0.2-1.3); Total Protein 7.2 g/dL (6.3-8.2)
--- NOTE | 2025-01-09 07:10 | XR ---
EXAMINATION TYPE: XR Hip RT and AP Pelvis DATE OF EXAM: 01/09/2025 6:48 AM COMPARISON: 10/20/2021 CLINICAL INDICATION: Female, 59 years old with history of fall, pain TECHNIQUE: 2 view(s) obtained. Exam supplemented with an AP pelvis FINDINGS: There is a comminuted intertrochanteric fracture right hip. Femoral head articulates with the acetabulum. Joint space has narrowing. Left hip articulates with the acetabulum. Fecal bolus in the rectum. IMPRESSION: 1. Comminuted intertrochanteric fracture right hip [facility], , 01/09/2025 7:08 AM
[2025-01-09 07:22] LABS: Creatine Kinase 2497 U/L (30-135)
[2025-01-09] MEDS ORDERED: NALOXONE 0.4 MG/ML 1 ML VIAL IV PRN (07:47)
[2025-01-09] MEDS ORDERED: ACETAMINOPHEN TAB 325 MG TAB PO PRN (07:47)
[2025-01-09 07:49] LABS: Influenza A Not Detected (Not Detectd); Influenza B Not Detected (Not Detectd); RSV Not Detected (Not Detectd)
[2025-01-09 07:56] LABS: Appearance,Urine Clear (Clear); Bilirubin,Urine Negative (Negative); Blood,Urine Negative (Negative); Color,Urine Yellow; Glucose,Urine (UA) Negative (Negative); Ketones,Urine 2+ (Negative); Leukocyte Esterase,Urine Negative (Negative); Nitrite,Urine Negative (Negative); PH, Urine 5.5 (5.0-8.0); Protein,Urine Trace (Negative); Specific Gravity,Urine 1.024 (1.001-1.035); Urobilinogen,Urine <2.0 mg/dL (<2.0)
--- NOTE | 2025-01-09 08:52 | XR ---
EXAMINATION TYPE: XR femur RT DATE OF EXAM: 01/09/2025 8:23 AM COMPARISON: None. CLINICAL INDICATION: Female, 59 years old with history of IT fracture, pain TECHNIQUE: 2 view(s) obtained. FINDINGS: Multiple artifacts overlying the images. There is a comminuted fracture of the intertrochanteric region right hip. Remainder of the right femur is visualized appears intact. IMPRESSION: 1. Intertrochanteric fracture right hip [facility], , 01/09/2025 8:49 AM
--- NOTE | 2025-01-09 08:56 | CT ---
EXAMINATION TYPE: CT hip RT wo con DATE OF EXAM: 01/09/2025 8:12 AM COMPARISON: None. CLINICAL INDICATION: Female, 59 years old with history of IT fracture, IT fracture RT Hip TECHNIQUE: Contrast used: mL of , (none if empty) Oral contrast used: (none if empty) Axial images at 3 mm thick sections. Reconstructed images in the coronal and sagittal planes. 3-D re constructed images are performed on a separate computer by the technologist presented for review. FINDINGS: There is an intertrochanteric fracture of the right hip. This is comminuted with avulsion of the grea ter trochanter. Couple of small fracture fragments are anteriorly likely include the lesser trochante r. Femoral head articulates with the acetabulum. Joint space narrowing is present. The diaphyseal femur within the [id number] is intact. Portion of the pelvis appears normal. There is a fecal bolus of the rectum. Muscular density appears normal. IMPRESSION: 1. COMMINUTED FRACTURE INTERTROCHANTERIC RIGHT HIP [facility], , 01/09/2025 8:53 AM
[2025-01-09] MEDS ORDERED: HYDROmorphone 0.5 MG/0.5 ML SYRINGE IVP PRN (09:02)
[2025-01-09] MEDS: HYDROmorphone 1 MG/ML 1 ML SYRINGE IVP PRN (09:36)
--- NOTE | 2025-01-09 10:49 | CT ---
EXAMINATION TYPE: CT brain karloine wo con DATE OF EXAM: 01/09/2025 10:40 AM COMPARISON: None. CLINICAL INDICATION: Female, 59 years old with history of head injury, Fall, hematoma to back of head , pain TECHNIQUE: CT of the brain is performed utilizing 3 mm thick sections through the posterior fossa and 3 mm thick sections through the remaining calvarium. Study is performed within 24 hours of arrival to the hospital. Contrast used: mL of , (none if empty) CT DLP: 1523 mGycm, Automated exposure control for dose reduction was used. FINDINGS: No abnormal hyperdensity is present to suggest an acute intracranial hemorrhage. No mass lesion is evident. No acute infarcts are evident. Ventricles and sulci are prominent for the patient age. Paranasal sinuses and mastoid air cells within the lnuas-pz-uvyw are clear. IMPRESSIONS: 1. No acute intracranial process. Follow-up MRI can be performed as clinically indicated. 2. Atrophy CT cervical spine. COMPARISON: None TECHNIQUE: CT of the cervical spine is performed in the axial plane at 2 mm thick sections. Reconstr ucted images in the coronal, and sagittal plane are reviewed on the computer. FINDINGS: No acute fractures are evident. Minimal grade 1 spondylolisthesis of C3 on C4 may be present. Minimal retrolisthesis of C5 on C6 may be present. Mild disc space narrowing C5-6 and posteriorly at C6-7 is present Vertebral body heights are preserved. No spinal canal stenosis is evident. Left C5-6 foraminal narrowing due to uncovertebral joint hypertrophy is present IMPRESSION: 1. No acute osseous abnormality cervical spine. 2. Degenerative disc changes C5-6. Some left foraminal narrowing is present at this level. [facility], , 01/09/2025 10:46 AM
--- NOTE | 2025-01-09 11:11 | P.CNOR ---
History of Present Illness - [facility] Consult date: 01/09/25 Consult reason: fracture (Right hip fracture.) History of present illness: This is a 59-year-old female who was brought to the emergency department early this morning via EMS after having a fall late last evening. She states that she was attempting to wash her bain and fell. She reportedly was stuck between her couch and her coffee table and laid on the floor for several hours. On arrival her white blood cell count was slightly elevated and her creatinine kinase is 2497. She was found to have an intertrochanteric hip fracture. We are consulted for orthopedic evaluation. 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 History of Any Multi-Drug Resistant Organisms: None Reported Past Surgical History: Breast Surgery, Tubal Ligation Additional Past Surgical History / Comment(s): Cervical conization for pre- cancer, bilateral breast benign lumpectomies/has markers, colonoscopy. Past Anesthesia/Blood Transfusion Reactions: Motion Sickness Additional Past Anesthesia/Blood Transfusion Reaction / Comm: Pt states she has a fear of anesthesia and wakes up trying to get up. Past Psychological History: Anxiety, Depression Smoking Status: Current every day smoker Past Alcohol Use History: Occasional Past Drug Use History: None Reported - Past Family History Father Family Medical History: CVA/TIA Additional Family Medical History / Comment(s): Father had a cva and . Mother Family Medical History: Cancer Additional Family Medical History / Comment(s): Mother of brain cancer at the age of 66 yrs. Medications and Allergies Home Medications Medication Instructions Recorded Confirmed Type Multivitamins, Thera [Multivitamin 1 tab PO DAILY 09/11/21 01/09/25 History (formulary)] Magnesium Oxide [Mag-Ox] 400 mg PO DAILY 03/08/24 01/09/25 History Metoprolol Succinate [Toprol XL] 50 mg PO DAILY 03/08/24 01/09/25 History Potassium Chloride [Klor-Con M20] 20 meq PO DAILY 03/08/24 01/09/25 History lisinopriL [Zestril] 5 mg PO DAILY 03/08/24 01/09/25 History Cetirizine HCl [Zyrtec] 10 mg PO DAILY PRN 12/07/24 01/09/25 History Cyanocobalamin (Vitamin B-12) 1,000 mcg PO DAILY 12/07/24 01/09/25 History [Vitamin B-12] Butalb/APAP/Caff 50-325-40Mg 1 tab PO Q6H PRN 01/09/25 01/09/25 History [Fioricet 50-325-40] Allergies Allergy/AdvReac Type Severity Reaction Status Date / Time Penicillins Allergy Rash/Hives Verified 01/09/25 08:55 Physical Examination This is a pleasant 59-year-old female in no acute distress. She is alert and oriented x 3. Exam of the head neck revealed no obvious deformity. She has full cervical spine motion without difficulty or pain. She is nontender over the paraspinal musculature or spinous processes. Exam of the upper extremities reveals no obvious deformity. There is a well- healed surgical scar about the upper shoulder on the right. There is slight limitation in her forward flexion of the right shoulder but overall mobility is good. Exam of the lower extremities reveals shortening and external rotation to the right leg. She has full foot and ankle motion without difficulty or pain. There are no open wounds or abrasions noted. Neurovascular status to the lower extremities is intact. Results X-rays and CT scan of the pelvis and right hip reveal a comminuted and displaced intertrochanteric fracture. There are no other bony abnormalities noted. - Labs Labs: Abnormal Lab Results - Last 24 Hours (Table) 01/09/25 01/09/25 01/09/25 Range/Units 06:31 06:31 07:52 WBC 11.3 H (3.8-10.6) k/uL RBC 3.24 L (3.80-5.40) m/uL Hgb 11.1 L (11.4-16.0) gm/dL Hct 32.9 L (34.0-46.0) % MCV 101.6 H D (80.0-100.0) fL Neutrophils # 9.5 H (1.3-7.7) k/uL BUN 19 H (7-17) mg/dL Glucose 129 H (74-99) mg/dL Total Bilirubin 1.6 H (0.2-1.3) mg/dL AST 80 H (14-36) U/L Creatine Kinase 2497 H* (30-135) U/L Urine Protein Trace H (Negative) Urine Ketones 2+ H (Negative) H & H 01/09/25 Range/Units 06:31 Hgb 11.1 L (11.4-16.0) gm/dL Hct 32.9 L (34.0-46.0) % Result Diagrams: 01/09/25 06:31 01/09/25 06:31 Assessment and Plan (1) Fall Current Visit: Yes Status: Acute Code(s): W19.XXXA - UNSPECIFIED FALL, INITIAL ENCOUNTER SNOMED Code(s): 7415992 (2) Intertrochanteric fracture of right hip Current Visit: Yes Status: Acute Priority: High Code(s): S72.141A - DISPLACED INTERTROCHANTERIC FRACTURE OF RIGHT FEMUR, INIT SNOMED Code(s): 211181672 (3) Rhabdomyolysis Current Visit: Yes Status: Acute Code(s): M62.82 - RHABDOMYOLYSIS SNOMED Code(s): 946111080 Plan: The clinical and radiographic findings are discussed with the patient. It is recommended she undergo closed reduction with insertion of intertrochanteric nail of the right hip. The procedure was discussed in detail including the possible risks and outcomes of the surgery. We discussed the possibility of requiring inpatient rehab postoperatively. After discussion and consideration the patient elects proceed with surgery. She is tentatively scheduled for tomorrow awaiting medical clearance and resolution of her rhabdomyolysis. Patient was seen and independently evaluated by myself, please see additional consult note for additional details, I agree with the above history and physical exam. Informed consent for surgical intervention of the right hip was obtained today and will plan for operative stabilization of her fracture once medicaly optimized.
[2025-01-09] MEDS ORDERED: BUTALB/APAP/CAFF 50-325-40MG TAB PO PRN (12:06)
--- NOTE | 2025-01-09 12:45 | P.HPIM ---
History of Present Illness Patient 53-year-old female came to the hospital after a fall found to have intertrochanteric fracture of the right hip patient does have leukocytosis and mildly elevated CK about 1999. Patient is receiving IV fluids urinalysis is not consistent with rhabdomyolysis. Patient is having severe pain. Patient denied any history of coronary disease or congestive heart failure patient does have hypertension and diabetes mellitus and seizure disorder... EKG did not show any acute ST-T wave changes did show some Q waves in V1 V2. Patient had a CT head and cervical spine which did not show any acute abnormality patient had a hematoma on the scalp. REVIEW OF SYSTEMS: All other systems are negative except those mentioned in the HPI PHYSICAL EXAMINATION: GENERAL: The patient is alert and oriented x3, not in any acute distress. Well developed, well nourished. HEENT: Pupils are round and equally reacting to light. EOMI. No scleral icterus. No conjunctival pallor. Normocephalic, atraumatic. No pharyngeal erythema. No thyromegaly. CARDIOVASCULAR: S1 and S2 present. No murmurs, rubs, or gallops. PULMONARY: Chest is clear to auscultation, no wheezing or crackles. ABDOMEN: Soft, nontender, nondistended, normoactive bowel sounds. No palpable organomegaly. MUSCULOSKELETAL: No deferred to orthopedic surgery EXTREMITIES: No cyanosis, clubbing, or pedal edema. NEUROLOGICAL: Gross neurological examination did not reveal any focal deficits. SKIN: No rashes. Assessment and plan -Intertrochanteric fracture of the right hip: Patient is low operative risk for surgery patient can proceed with the surgery anytime -Elevated CK without any evidence of rhabdomyolysis continue with IV fluids we will cut down the fluids to 75 cc/h. Leukocytosis reactive secondary to fall -Hypertension hold off antihypertensive medications with concerns of perioperative hypertension patient blood pressure at this time is good DVT prophylaxis: Lovenox Past Medical History Past Medical History: Diabetes Mellitus, Seizure Disorder, Syncope Additional Past Medical History / Comment(s): Diet controlled diabetes, pt states she has drank heavier off and on over her adult years and has been drinking heavier/daily since her brother's recent 2 weeks ago, she believes she may have withdrawal in the past as "shakes", past benign brain tumor and pt states recently found thru 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 History of Any Multi-Drug Resistant Organisms: None Reported Past Surgical History: Breast Surgery, Tubal Ligation Additional Past Surgical History / Comment(s): Cervical conization for pre- cancer, bilateral breast benign lumpectomies/has markers, colonoscopy. Past Anesthesia/Blood Transfusion Reactions: Motion Sickness Additional Past Anesthesia/Blood Transfusion Reaction / Comment(s): Pt states she has a fear of anesthesia and wakes up trying to get up. Past Psychological History: Anxiety, Depression Smoking Status: Current every day smoker Past Alcohol Use History: Occasional Past Drug Use History: None Reported - Past Family History Father Family Medical History: CVA/TIA Additional Family Medical History / Comment(s): Father had a cva and . Mother Family Medical History: Cancer Additional Family Medical History / Comment(s): Mother of brain cancer at the age of 66 yrs. Medications and Allergies Home Medications Medication Instructions Recorded Confirmed Type Multivitamins, Thera [Multivitamin 1 tab PO DAILY 09/11/21 01/09/25 History (formulary)] Magnesium Oxide [Mag-Ox] 400 mg PO DAILY 03/08/24 01/09/25 History Metoprolol Succinate [Toprol XL] 50 mg PO DAILY 03/08/24 01/09/25 History Potassium Chloride [Klor-Con M20] 20 meq PO DAILY 03/08/24 01/09/25 History lisinopriL [Zestril] 5 mg PO DAILY 03/08/24 01/09/25 History Cetirizine HCl [Zyrtec] 10 mg PO DAILY PRN 12/07/24 01/09/25 History Cyanocobalamin (Vitamin B-12) 1,000 mcg PO DAILY 12/07/24 01/09/25 History [Vitamin B-12] Butalb/APAP/Caff 50-325-40Mg 1 tab PO Q6H PRN 01/09/25 01/09/25 History [Fioricet 50-325-40] Allergies Allergy/AdvReac Type Severity Reaction Status Date / Time Penicillins Allergy Rash/Hives Verified 01/09/25 08:55 Physical Exam Vitals: Vital Signs Temp Pulse Resp BP Pulse Ox 01/09/25 10:00 90 20 143/73 96 01/09/25 09:26 99 20 120/84 98 01/09/25 07:49 98 18 132/83 100 01/09/25 06:35 116 H 22 149/85 98 01/09/25 06:09 98.2 F 133 H 22 148/87 99 Intake and Output 01/08/25 01/09/25 01/09/25 22:59 06:59 14:59 Other: Weight 47.627 kg Results CBC & Chem 7: 01/09/25 06:31 01/09/25 06:31 Labs: Abnormal Lab Results - Last 24 Hours (Table) 01/09/25 01/09/25 01/09/25 Range/Units 06:31 06:31 07:52 WBC 11.3 H (3.8-10.6) k/uL RBC 3.24 L (3.80-5.40) m/uL Hgb 11.1 L (11.4-16.0) gm/dL Hct 32.9 L (34.0-46.0) % MCV 101.6 H D (80.0-100.0) fL Neutrophils # 9.5 H (1.3-7.7) k/uL BUN 19 H (7-17) mg/dL Glucose 129 H (74-99) mg/dL Total Bilirubin 1.6 H (0.2-1.3) mg/dL AST 80 H (14-36) U/L Creatine Kinase 2497 H* (30-135) U/L Urine Protein Trace H (Negative) Urine Ketones 2+ H (Negative)
[2025-01-09] MEDS: SODIUM CHLORIDE 0.9% 1,000 ML IV SCH (13:15)
--- NOTE | 2025-01-09 14:08 | P.CNOR ---
History of Present Illness - HPI Consult date: 01/09/25 Consult reason: fracture History of present illness: Patient is a 59-year-old female presented the ER via EMS for evaluation of fall. Patient states she fell when she was standing on a chair trying to clean in her house ,she was then able to get over to the couch however when she had to use the restroom and tried to stand up she fell again landing on her right hip and was stuck in between her couch and a small coffee table for approximately 5 hours. She was unable to get up given the pain causing her to defecate on herself. Patient denies any head injury, loss of consciousness or blood thinner use. She was reporting most of her pain to her right hip and states it feels "swollen". She is currently rating her pain an 8 out of 10. She denies any dizziness, lightheadedness, chest pain or shortness of breath prior to fall. No other complaints at this time. She denies any numbness or tingling to the right leg/foot, denies any further areas of pain to the other extremities, neck or back. At baseline patient is a community ambulator and does not require assistive devices at baseline. Prior to this incident she denies any previous right hip pain. Review of Systems Constitutional: Denies chills, Denies fever Ears, nose, mouth and throat: Denies headache Cardiovascular: Denies chest pain Respiratory: Denies pain on inspiration, Denies wheezing Musculoskeletal: Reports as per HPI Musculoskeletal: right: hip pain Neurological: Denies numbness, Denies tingling Past Medical History Past Medical History: Diabetes Mellitus, Seizure Disorder, Syncope Additional Past Medical History / Comment(s): Diet controlled diabetes, pt states she has drank heavier off and on over her adult years and has been drinking heavier/daily since her brother's recent 2 weeks ago, she believes she may have withdrawal in the past as "shakes", past benign brain tumor and pt states recently found thru MRI 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 History of Any Multi-Drug Resistant Organisms: None Reported Past Surgical History: Breast Surgery, Tubal Ligation Additional Past Surgical History / Comment(s): Cervical conization for pre- cancer, bilateral breast benign lumpectomies/has markers, colonoscopy. Past Anesthesia/Blood Transfusion Reactions: Motion Sickness Additional Past Anesthesia/Blood Transfusion Reaction / Comm: Pt states she has a fear of anesthesia and wakes up trying to get up. Past Psychological History: Anxiety, Depression Smoking Status: Current every day smoker Past Alcohol Use History: Occasional Past Drug Use History: None Reported - Past Family History Father Family Medical History: CVA/TIA Additional Family Medical History / Comment(s): Father had a cva and . Mother Family Medical History: Cancer Additional Family Medical History / Comment(s): Mother of brain cancer at the age of 66 yrs. Medications and Allergies Home Medications Medication Instructions Recorded Confirmed Type Multivitamins, Thera [Multivitamin 1 tab PO DAILY 09/11/21 01/09/25 History (formulary)] Magnesium Oxide [Mag-Ox] 400 mg PO DAILY 03/08/24 01/09/25 History Metoprolol Succinate [Toprol XL] 50 mg PO DAILY 03/08/24 01/09/25 History Potassium Chloride [Klor-Con M20] 20 meq PO DAILY 03/08/24 01/09/25 History lisinopriL [Zestril] 5 mg PO DAILY 03/08/24 01/09/25 History Cetirizine HCl [Zyrtec] 10 mg PO DAILY PRN 12/07/24 01/09/25 History Cyanocobalamin (Vitamin B-12) 1,000 mcg PO DAILY 12/07/24 01/09/25 History [Vitamin B-12] Butalb/APAP/Caff 50-325-40Mg 1 tab PO Q6H PRN 01/09/25 01/09/25 History [Fioricet 50-325-40] Allergies Allergy/AdvReac Type Severity Reaction Status Date / Time Penicillins Allergy Rash/Hives Verified 01/09/25 08:55 Physical Examination General: Patient is alert and oriented, she is in considerable pain on exam related to the right hip HEENT: patient has small laceration noted to the back of her head, patient has intact extraocular motion of the eyes, pupils are reactive to light CV: patient has normal rate and intact distal pulses Pulm: patient has normal respiratory rate, in no current respiratory distress Abdomen: patients abdomen is non tender Right hip exam skin is intact limb is shortened and externally rotated TTP globally around the hip ROM and strength testing of the hip and knee deferred due to known fracture stability exam of the hip and knee deferred due to known fracture sensation to light touch intact throughout the right leg and foot patient able to actively plantar and dorsiflex the ankle and flex and extend the digits of the foot patient has palpable DP pulse and brisk capillary refill to the left foot less than 3 seconds Tertiary exam shows no further areas of bony tenderness or instability to the bilateral upper extremities, left lower extremity. Results - Labs Labs: Abnormal Lab Results - Last 24 Hours (Table) 01/09/25 01/09/25 01/09/25 Range/Units 06:31 06:31 07:52 WBC 11.3 H (3.8-10.6) k/uL RBC 3.24 L (3.80-5.40) m/uL Hgb 11.1 L (11.4-16.0) gm/dL Hct 32.9 L (34.0-46.0) % MCV 101.6 H D (80.0-100.0) fL Neutrophils # 9.5 H (1.3-7.7) k/uL BUN 19 H (7-17) mg/dL Glucose 129 H (74-99) mg/dL Total Bilirubin 1.6 H (0.2-1.3) mg/dL AST 80 H (14-36) U/L Creatine Kinase 2497 H* (30-135) U/L Urine Protein Trace H (Negative) Urine Ketones 2+ H (Negative) H & H 01/09/25 Range/Units 06:31 Hgb 11.1 L (11.4-16.0) gm/dL Hct 32.9 L (34.0-46.0) % Result Diagrams: 01/09/25 06:31 01/09/25 06:31 - Diagnostic results Hip x-ray: image reviewed (imaging shows a comminuted unstable intertrochanteric femur fracture, additional imaging of the femur does not reveal any distal fract ures or implants at the knee level. ) Hip CT: image reviewed (imaging shows a comminuted unstable intertrochanteric femur fracture ) Assessment and Plan (1) Intertrochanteric fracture of right hip Current Visit: Yes Status: Acute Priority: High Code(s): S72.141A - DISPLACED INTERTROCHANTERIC FRACTURE OF RIGHT FEMUR, INIT SNOMED Code(s): 958811889 Plan: NWB to right leg will plan for OR tomorrow for intramedullary fixation of the right hip pending medical evaluation NPO at midnight in preparation for OR Multimodal pain regimen for pain control PT/OT evaluation post op Appreciated medicine evaluation for preoperative assessment Detailed discussion was had with the patient and family regarding the nature of the injury. With a fracture as a result of minor trauma this is an indication of poor bone quality and they are encouraged to discuss further metabolic testing and workup with their primary care physician in coordination with our team and possibly even an emergency department nurse. They sustained an unstable hip fracture. Based on their baseline ambulatory status this is an injury that would greatly benefit from surgical intervention in order to provide patient with the best chance of regaining mobility after this injury. We discussed non operative treatment is theoretically possible but would require prolonged non weight bearing to the affected leg which would ultimately result in prolonged immobilization and is associated with significantly increased mortality rates. Arthroplasty although a theoretical option would not be the most appropriate fixation option given the location of the fracture and lack of previous hip pain. We discussed that the most appropriate surgical option for this injury would be intramedullary nail fixation. The risks of surgery include risks of anesthesia which will be discussed in greater detail with your anesthesia team at the time of surgery, scarring, risk of swelling and possible permanent swelling of the affected extremity, superficial vs deep infections, damage to surrounding structures including muscles, nerve, tendons, blood vessels, hardware failure, fracture mal or non union, need for additional future surgery, blood clots, stroke, even are possible with surgery were discussed with the patient and he wishes to proceed when medically optimized. Benefits include stabilizing the fracture and helping with baseline pain, providing the patient with the opportunity to weight bear on the extremity after surgery and realigning the bone to allow the best opportunity for the fracture to heal in a better position. We also discussed the likely post operative course after surgery including beginning weight bearing to the left leg after surgery, on average several days in the hospital after surgery for initial recovery and evaluation by the PT and OT staff to aid in determining the proper destination after their hospitalization, likely this will require a period of time at a rehab or nursing facility. We also discussed realistic expectations regarding function after this injury, the best case scenario is she returns to her baseline functional level but many times patients become more depending on support aids such as walkers/canes/or wheelchairs based on their previous level of function and it is not uncommon for patients to require additional support for ambulation after such an injury above what was required in their pre-injury state.
[2025-01-09] MEDS: FAMOTIDINE 20 MG TAB PO SCH (14:20)
[2025-01-09] MEDS: METOPROLOL SUCCINATE (ER) 50 MG TAB.ER.24H PO SCH (14:20)
[2025-01-10] MEDS: KETOROLAC 15 MG/ML 1 ML VIAL IVP PRN (06:11)
[2025-01-10] MEDS: ENOXAPARIN 40 MG/0.4 ML SYRINGE SQ SCH (08:06)
[2025-01-10 08:39] LABS: HCT 25.7 % (37.2-46.3); HGB 8.6 g/dL (12.0-15.0); MCHC 33.5 g/dL (32.0-37.0); MCV 104.5 FL (80.0-97.0); Mean Platelet Volume 11.3 FL (9.5-12.2); NRBC Per 100 WBC 0 X 10*3/uL (0.00-0.01); Platelet Count 180 X 10*3/uL (140-440); RBC 2.46 X 10*6/uL (4.10-5.20); RDW 13.6 % (11.5-14.5); WBC 7.36 X 10*3/uL (4.50-10.00)
--- NOTE | 2025-01-10 08:40 | P.PN ---
Subjective Progress Note Date: 01/10/25 Principal diagnosis: Intertrochanteric fracture right hip. Rhabdomyolysis. This is a 59-year-old female admitted with right intertrochanteric fracture with an extended downtime after fall. She was in rhabdomyolysis upon admission yesterday. Repeat labs are pending this morning. She is currently scheduled for closed reduction with insertion of intertrochanteric nail today if cleared medically. She has no new complaints or concerns this morning. Vital signs are stable. Objective - Vital Signs Vital signs: Vital Signs Temp 99.2 F 01/10/25 02:40 Pulse 95 01/10/25 02:40 Resp 16 01/10/25 02:40 BP 145/79 01/10/25 02:40 Pulse Ox 98 01/10/25 02:40 FiO2 Intake & Output 01/09/25 01/10/25 01/10/25 18:59 06:59 18:59 Intake Total 1930 Output Total 850 Balance 1080 Weight 47.627 kg Intake: Oral 1930 Output: Urine 850 Other: Voiding Method External Catheter # Voids 2 - Exam This is a pleasant 59-year-old female in no acute distress. She is alert and oriented x 3. Exam of the lower extremities reveals continued shortening and external rotation to the right leg. She is able to move her feet and ankles without difficulty or pain. Neurovascular status to the lower extremities intact. - Labs CBC & Chem 7: 01/10/25 02:47 01/10/25 02:47 Assessment and Plan (1) Fall Current Visit: Yes Status: Acute Code(s): W19.XXXA - UNSPECIFIED FALL, INITIAL ENCOUNTER SNOMED Code(s): 0011491 (2) Intertrochanteric fracture of right hip Current Visit: Yes Status: Acute Priority: High Code(s): S72.141A - DISPLACED INTERTROCHANTERIC FRACTURE OF RIGHT FEMUR, INIT SNOMED Code(s): 358318548 (3) Rhabdomyolysis Current Visit: Yes Status: Acute Code(s): M62.82 - RHABDOMYOLYSIS SNOMED Code(s): 376759429 Plan: The clinical and radiographic findings are discussed with the patient. It is recommended she undergo closed reduction with insertion of intertrochanteric nail of the right hip. The procedure was discussed in detail including the possible risks and outcomes of the surgery. We discussed the possibility of requiring inpatient rehab postoperatively. After discussion and consideration the patient elects proceed with surgery. She is tentatively scheduled for today awaiting medical clearance and resolution of her rhabdomyolysis. Patient seen and independently examined by myself today, I agree with the above history and exam. Patient denies any new issues today, continues to have well localized pain to the right hip though better controlled with her pain regimen. She remains neurovascularly intact to the right lower extremity. We again discussed the plans for surgery today namely intramedullary fixation. Given the degree of comminution and instability of her fracture I have requested one of my senior partners assist me with the case today and the patient is in agreement with this plan. We again discussed the likely post op course however her degree of weight bearing will be determined after surgery and we can assess the level of fracture instability remaining after surgical intervention today. Plan for OR today for CMN, at this time it appears the medicine team is satisfied with her current medical status and has determined her an acceptable risk for surgery today. Benedicto Espinoza MD
[2025-01-10 08:59] LABS: BUN/Creat Ratio 18.33 Ratio (12.00-20.00); Calcium 8.4 mg/dL (8.7-10.3); Carbon Dioxide 26.5 mmol/L (21.6-31.8); Chloride 101 mmol/L (96-109); Glucose 101 mg/dL (70-110); Potassium 3.6 mmol/L (3.5-5.5); Sodium 137 mmol/L (135-145)
[2025-01-10] MEDS ORDERED: Magnesium Replacement Protocol 1 EACH MISC MISCELLANE PRN (09:26)
[2025-01-10] MEDS: MAGNESIUM SULFATE-D5W PMX 1 GM in DEXTROSE/WATER 1 100ML.BAG IVPB SCH (09:38)
--- NOTE | 2025-01-10 10:36 | P.NPCON ---
History of Present Illness - Reason for Consult acute renal failure - History of Present Illness Reason for consultation: Rhabdomyolysis History of present illness: Patient is a 59-year-old female seen in renal consultation for rhabdomyolysis. CK level 2497 on admission. Patient came to the hospital due to fall. Patient states she fell from a couch and landed on her right hip. Patient states she struck the coffee table and was down for about 5 hours. She denies dizziness or loss of consciousness. Imaging shows comminuted fracture in intertrochanteric right hip. She is being followed by orthopedic surgery and is scheduled for surgery later today. She is currently receiving normal saline at 75 cc an hour. I do not see a statin on her home medication list. No fever or chills. No vomiting or diarrhea. GFR at baseline. Denies gross hematuria or dysuria. Denies history of diabetes. Vital signs are stable. General: No acute distress. HEENT: Head exam is unremarkable. LUNGS: No audible rhonchi or wheezes. HEART: Rate and Rhythm are regular. ABDOMEN: Nontender. EXTREMITITES: No edema. 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 History of Any Multi-Drug Resistant Organisms: None Reported Past Surgical History: Breast Surgery, Tubal Ligation Additional Past Surgical History / Comment(s): Cervical conization for pre- cancer, bilateral breast benign lumpectomies/has markers, colonoscopy. Past Anesthesia/Blood Transfusion Reactions: Motion Sickness Additional Past Anesthesia/Blood Transfusion Reaction / Comment(s): Pt states she has a fear of anesthesia and wakes up trying to get up. Past Psychological History: Anxiety, Depression Smoking Status: Current every day smoker Past Alcohol Use History: Occasional Past Drug Use History: None Reported - Past Family History Father Family Medical History: CVA/TIA Additional Family Medical History / Comment(s): Father had a cva and . Mother Family Medical History: Cancer Additional Family Medical History / Comment(s): Mother of brain cancer at the age of 66 yrs. Medications and Allergies Home Medications Medication Instructions Recorded Confirmed Type Multivitamins, Thera [Multivitamin 1 tab PO DAILY 09/11/21 01/09/25 History (formulary)] Magnesium Oxide [Mag-Ox] 400 mg PO DAILY 03/08/24 01/09/25 History Metoprolol Succinate [Toprol XL] 50 mg PO DAILY 03/08/24 01/09/25 History Potassium Chloride [Klor-Con M20] 20 meq PO DAILY 03/08/24 01/09/25 History lisinopriL [Zestril] 5 mg PO DAILY 03/08/24 01/09/25 History Cetirizine HCl [Zyrtec] 10 mg PO DAILY PRN 12/07/24 01/09/25 History Cyanocobalamin (Vitamin B-12) 1,000 mcg PO DAILY 12/07/24 01/09/25 History [Vitamin B-12] Butalb/APAP/Caff 50-325-40Mg 1 tab PO Q6H PRN 01/09/25 01/09/25 History [Fioricet 50-325-40] Allergies Allergy/AdvReac Type Severity Reaction Status Date / Time Penicillins Allergy Rash/Hives Verified 01/09/25 08:55 Physical Exam Vitals: Vital Signs Temp Pulse Pulse Resp BP BP Pulse Ox 01/10/25 08:10 95 16 01/10/25 06:45 99.4 F 88 17 119/69 93 L 01/10/25 02:40 99.2 F 95 16 145/79 98 01/09/25 19:50 98.8 F 90 15 119/73 100 01/09/25 19:24 102 H 16 01/09/25 14:00 98.0 F 102 H 16 164/74 01/09/25 13:16 98.1 F 98 20 120/72 99 Intake and Output 01/09/25 01/10/25 01/10/25 22:59 06:59 14:59 Intake Total 1390 540 Output Total 850 Balance 1390 -310 Intake: Oral 1390 540 Output: Urine 850 Other: Voiding Method External Catheter External Catheter # Voids 2 Results - Lab Results Most recent lab results Calcium 8.4 mg/dL (8.7-10.3) L 01/10/25 02:47 Magnesium 1.0 mg/dL (1.5-2.4) L 01/10/25 02:47 01/10/25 02:47 01/10/25 02:47 Assessment and Plan Plan: Assessment: 1. Rhabdomyolysis secondary to fall and immobility. CK level 2497 on admission. 2. Status post fall with right hip fracture. Orthopedic surgery following. 3. Benign hypertension. Controlled. 4. Anemia. Rule out iron deficiency. 5. Hypomagnesemia from poor intake and diuretic use. Being replaced. Plan: Maintain IV fluids. Repeat CK level. Check iron studies. Avoid nephrotoxins. Thank you for the consultation. I will continue to follow the patient with you during her hospital stay.
[2025-01-10] MEDS: IV FLUID CONTINUATION 1,000 ML IV ONE (15:24)
[2025-01-10 15:42] LABS: Glucose,Whole Blood 105 mg/dL (70-110)
[2025-01-10 15:57] LABS: % Iron Saturation 7.08 (12.00-45.00)
[2025-01-10] MEDS: FAMOTIDINE 20 MG/2 ML VIAL IV STA (16:21)
[2025-01-10] MEDS: DEXAMETHASONE SOD PHOSPHATE 4 MG/ML 1 ML VIAL IVP STA (16:22)
[2025-01-10] MEDS: ONDANSETRON 4 MG/2 ML VIAL IVP PRN (16:22)
[2025-01-10] MEDS ORDERED: TRANEXAMIC 1,000 MG/100ML-NACL PREMIX BAG ONE (16:33)
[2025-01-10] MEDS ORDERED: ROCURONIUM 10 MG/ML (5 ML VIAL) IV ONE (16:33)
[2025-01-10] MEDS ORDERED: SUCCINYLCHOLINE CHLORIDE 200 MG/10 ML VIAL IV ONE (16:33)
[2025-01-10] MEDS ORDERED: MIDAZOLAM 2 MG/2 ML VIAL ONE (16:33)
[2025-01-10] MEDS ORDERED: GLYCOPYRROLATE 0.2 MG/ML 2 ML VIAL ONE (16:33)
[2025-01-10] MEDS ORDERED: PHENYLEPHRINE 10 MG/ML VIAL ONE (16:33)
[2025-01-10] MEDS ORDERED: NEOSTIGMINE 1 MG/ML 10 ML VIAL ONE (16:33)
[2025-01-10] MEDS ORDERED: PROPOFOL 10 MG/ML 20 ML VIAL IV ONE (16:33)
[2025-01-10] MEDS ORDERED: fentaNYL (PF) 50 MCG/ML 2 ML AMP ONE (16:33)
[2025-01-10] MEDS ORDERED: HYDROmorphone (PF) 1 MG/ML ONE (16:33)
[2025-01-10] MEDS ORDERED: LIDOCAINE 1% INJ 10MG/ML (20 ML MDV) ONE (16:33)
[2025-01-10] MEDS: SODIUM CHLORIDE 0.9% 100 ML with ceFAZolin 2,000 MG IV ONE (16:38)
[2025-01-10] MEDS: LACTATED RINGERS 1,000 ML IV ONE (17:17)
--- NOTE | 2025-01-10 18:08 | XR ---
EXAMINATION TYPE: XR Hip Complete RT, [place] guidance operating room Intraoperative/procedural fluoroscop ic services were provided. CLINICAL INDICATION:Female, 59 years old with history of RT HIP ORIF; , [facility] FINDINGS: Postsurgical changes from right hip ORIF with intramedullary alec and screw for intertrochan teric fracture. Hardware appears intact with appropriate alignment. No radiographic evidence for comp lication. Total fluoroscopy time is 1 min. DAP: 6.3879 Gycm2 Please see the operative/procedural note for further details. [facility], , 01/10/2025 6:06 PM
--- NOTE | 2025-01-10 18:34 | P.OP ---
Date of Procedure: 01/10/25 Preoperative Diagnosis: Right comminuted intertrochanteric femur fracture Postoperative Diagnosis: Same Procedure(s) Performed: Operative fixation of right hip with intramedullary implant Implants: Synthes TF and a 10 mm short nail 95 mm lag screw 32 mm distal interlocking screw Anesthesia: ESTER Surgeon: Benedicto Espinoza Manager Of Program #1: Tomas Ludwig Estimated Blood Loss (ml): 100 Pathology: none sent Condition: stable Disposition: PACU Indications for Procedure: Unstable right hip fracture in an ambulatory patient Operative Findings: Comminuted and displaced right intertrochanteric femur fracture Description of Procedure: After appropriate consent was obtained detailing the benefits and risks of surgery. The risks of surgery include risks of anesthesia which was discussed in greater detail with the anesthesia team prior to surgery, scarring, risk of swelling and possible permanent swelling of the affected extremity, superficial vs deep infections, damage to surrounding structures including muscles, nerve, tendons, blood vessels, hardware failure, fracture mal or non union, need for additional future surgery, blood clots, stroke, even are possible with donna jan were discussed with the patient and he wishes to proceed when medically optimized. Detailed descriptions of these risks are included in the consent document that patient was provided a copy with for review prior to his procedure. Benefits include stabilizing the fracture and helping with baseline pain, providing the patient with the opportunity to weight bear on the extremity after surgery The patient was brought to the operating room, and after induction of general anesthesia the patient was placed supine on the Allyn table. The right hip fracture was reduced with a combination of traction and internal rotation. Significantly improved reduction was confirmed with fluoroscopy but further reduction maneuvers were planned during the procedure. The right hip was then prepped and draped in a normal fashion. A standard timeout was performed again confirming the appropriate patient and operative site. the appropriate starting point on the greater trochanter was initially identified with fluoroscopy, the incision just proximal to the greater trochanter in line with the femur was marked out, the incision was carried down through the skin and through the overlying fascia in order to palpate the greater trochanter. a 3.2 mm guidepin was utilized to get the initial starting point for the opening reamer the opening reamer was then placed over the guidepin to open up the proximal aspect of the femur, sequential reaming up to a 11.5 mm reamer was then placed over a guidewire which was exchanged for the initial guidepin in order to adequately open the distal aspect of the canal to allow for ease of nail insertion the Synthes short 10 mm femoral nail, this was then gently inserted into a proper depth for the femoral neck lag screw, the trocar sleeve for the lag screw was th en inserted the incision was carried down through the skin and overlying fascia and the trocar was placed on the bone. an additional pin was placed through the aiming jig in order to properly estimate the trajectory of the head screw on the lateral image as well as an antirotation guidewire. Position was confirmed on AP and lateral films the guidepin for the head screw was then placed in approp riate position again confirmed with imaging, bone hook reduction maneuver was performed to reapproximate the inferomedial calcar prior to screw insertion however there was still some residual displacement after multiple attempts, the decision was then made to place the screw and achieve additional compression utilizing the compression mechanism of the nail to further reapproximate the inferomedial cortex , the screw was then predrilled and an appropriate sized screw length selected and placed. Manual compression was then performed to further reduce the fracture, the head screw was then locked in rotation to allow for further compression with ambulation. attention was then placed to the distal interlocking screw the trocar was inserted and appropriate position confirmed with imaging the cortex was drilled and an appropriate size screw was placed and imaging confirmed once again on fluoroscopy guide was removed and final images demonstrated appropriate fracture reduction and position of the implants the wounds were copiously irrigated with normal saline and the wounds closed with Vicryl sutures and strata fix barbed suture, skin glue was then applied, sterile dressings were then applied, patient tolerated the procedure well and was transported to the PACU in stable condition.
[2025-01-10] MEDS ORDERED: HYDROcodone/APAP 5-325MG 1 EACH TAB PO PRN (20:16)
[2025-01-10] MEDS ORDERED: HYDROmorphone 1 MG/ML 1 ML SYRINGE IVP PRN (20:16)
[2025-01-10] MEDS ORDERED: NALOXONE 0.4 MG/ML 1 ML VIAL IV PRN (20:16)
[2025-01-10] MEDS ORDERED: HYDROmorphone 0.5 MG/0.5 ML SYRINGE IVP PRN ×2 (20:16)
[2025-01-10] MEDS ORDERED: MAGNESIUM HYDROXIDE 2,400 MG/30 ML CUP PO PRN (20:16)
[2025-01-10] MEDS: LACTATED RINGERS 1,000 ML IV SCH (20:45)
[2025-01-10] MEDS: SENNOSIDES-DOCUSATE SODIUM 1 EACH TAB PO SCH (21:00)
[2025-01-10 21:09] LABS: HCT 27.1 % (34.0-46.0); Lymphocytes % (A) 4 %; MCH 34.7 pg (25.0-35.0); MCHC 32.6 g/dL (31.0-37.0); MCV 106.2 fL (80.0-100.0); Macrocytosis Moderate; Mean Platelet Volume 8.6; Neutrophils % (A) 94 %; Platelet Count 169 k/uL (150-450); RBC 2.55 m/uL (3.80-5.40); RDW 13.5 % (11.5-15.5); WBC 9.4 k/uL (3.8-10.6)
[2025-01-10] MEDS: HYDROcodone/APAP 5-325MG 1 EACH TAB PO PRN (21:09)
[2025-01-10 21:10] LABS: Basophils % (A) 0 %; Eosinophils % (A) 0 %; Lymphocytes # (A) 0.3 k/uL (1.0-4.8); Monocytes # (A) 0.1 k/uL (0-1.0); Monocytes % (A) 1 %; Neutrophils # (A) 8.8 k/uL (1.3-7.7)
[2025-01-10 21:28] LABS: HGB 8.8 gm/dL (11.4-16.0)
--- NOTE | 2025-01-11 01:00 | P.PN ---
Subjective Progress Note Date: 01/10/25 Patient 53-year-old female came to the hospital after a fall found to have intertrochanteric fracture of the right hip patient does have leukocytosis and mildly elevated CK about 2000. Patient is receiving IV fluids urinalysis is not consistent with rhabdomyolysis. Patient is having severe pain. Patient denied any history of coronary disease or congestive heart failure patient does have hypertension and diabetes mellitus and seizure disorder... EKG did not show any acute ST-T wave changes did show some Q waves in V1 V2. Patient had a CT head and cervical spine which did not show any acute abnormality patient had a hematoma on the scalp. 01/10/2025 Patient is seen in follow-up today currently n.p.o. with orthopedics following plan for right hip surgical intervention. Hemoglobin on the lower side with no active bleeding noted will follow-up on repeat labs and monitor closely. Magnesium also noted to be significantly low at 1.0 and will replace per protocol. Patient is awaiting to proceed with the procedure. Will await orthopedic report and also PT/OT therapy to evaluate. Review of systems: Constitutional: No reports of fatigue, fever, or chills Cardiovascular: No reports of chest pain or palpitations Respiratory: No reports of shortness of breath or cough GI: No reports of nausea, vomiting, or diarrhea : No reports of dysuria or retention Neurovascular: reports of generalized weakness with right hip pain and inability to walk All medications have been reviewed PHYSICAL EXAMINATION: GENERAL: The patient is alert and oriented x3, not in any acute distress. Well developed, well nourished. Elderly appearing, thin built HEENT: Pupils are round and equally reacting to light. EOMI. No scleral icterus. No conjunctival pallor. Normocephalic, atraumatic. No pharyngeal erythema. No thyromegaly. CARDIOVASCULAR: S1 and S2 present. No murmurs, rubs, or gallops. PULMONARY: Chest is clear to auscultation, no wheezing or crackles. ABDOMEN: Soft, nontender, nondistended, normoactive bowel sounds. No palpable organomegaly. MUSCULOSKELETAL: No deferred to orthopedic surgery EXTREMITIES: No cyanosis, clubbing, or pedal edema. NEUROLOGICAL: Gross neurological examination did not reveal any focal deficits. Diffusely weak SKIN: No rashes. Assessment: -Intertrochanteric fracture of the right hip status post mechanical fall, scheduled for surgical intervention today 01/10/2025 -Elevated CK without any evidence of rhabdomyolysis, continue with IV fluids we will cut down the fluids to 75 cc/h. -Leukocytosis reactive secondary to fall -Hypomagnesemia, currently 1.0 being replaced -Hypertension, hold off antihypertensive medications with concerns of perioperative hypertension patient blood pressure at this time is good -GI prophylaxis -DVT prophylaxis: Lovenox -Full code Plan: Patient is admitted status post fall noted to have intertrochanteric fracture of the right hip scheduled for surgical intervention with orthopedics Dr. Marshall today. Will await official orthopedic report Continue pain management and DVT prophylaxis Recommend incentive spirometer with instruction and education on how to properly use, continue using 10 times every hour while awake Will need PT/OT therapy evaluation Home medications reviewed and resumed as appropriate Will follow-up on repeat labs. Magnesium was replaced today as it was found to be low at 1.0 Case management/social work consult for discharge planning The impression and plan of care has been dictated by Anastacia Rogel, Nurse Practitioner as directed. Dr. Valeria MD I have performed a history and examination and MDM of this patient, discussed the same with the dictator, and agree with the dictator's assessment and plan as written ,documented as a scribe. Based on total visit time, I have performed more than 50% of the visit. Objective - Vital Signs Vital signs: Vital Signs Temp 99.4 F 01/10/25 06:45 Pulse 95 01/10/25 08:10 Resp 16 01/10/25 08:10 BP 119/69 01/10/25 06:45 Pulse Ox 93 L 01/10/25 06:45 FiO2 Intake & Output 01/09/25 01/10/25 01/10/25 18:59 06:59 18:59 Intake Total 1930 Output Total 850 Balance 1080 Weight 47.627 kg Intake: Oral 1930 Output: Urine 850 Other: Voiding Method External Catheter External Catheter # Voids 2 - Labs CBC & Chem 7: 01/10/25 20:44 01/10/25 02:47 Labs: Abnormal Lab Results - Last 24 Hours (Table) 01/10/25 01/10/25 Range/Units 02:47 02:47 RBC 2.46 L (4.10-5.20) X 10*6/uL Hgb 8.6 L (12.0-15.0) g/dL Hct 25.7 L (37.2-46.3) % MCV 104.5 H (80.0-97.0) FL MCH 35.0 H (27.0-32.0) pg Calcium 8.4 L (8.7-10.3) mg/dL Magnesium 1.0 L (1.5-2.4) mg/dL
[2025-01-11 04:08] LABS: Basophils % (A) 0 %; Eosinophils % (A) 0 %; HCT 25.2 % (34.0-46.0); Lymphocytes # (A) 0.3 k/uL (1.0-4.8); Lymphocytes % (A) 5 %; MCH 33.9 pg (25.0-35.0); MCHC 31.9 g/dL (31.0-37.0); MCV 106.3 fL (80.0-100.0); Macrocytosis Moderate; Mean Platelet Volume 8.4; Monocytes # (A) 0.3 k/uL (0-1.0); Monocytes % (A) 5 %; Neutrophils % (A) 90 %; Platelet Count 174 k/uL (150-450); RBC 2.37 m/uL (3.80-5.40); RDW 13.6 % (11.5-15.5); WBC 6.7 k/uL (3.8-10.6)
[2025-01-11] MEDS: ASPIRIN 81 MG PO SCH (07:59)
[2025-01-11 08:46] LABS: Creatine Kinase 1216 U/L (26-186)
[2025-01-11 09:02] LABS: Blood Urea Nitrogen 7.7 mg/dL (9.0-27.0); Calcium 8.3 mg/dL (8.7-10.3); Carbon Dioxide 27.4 mmol/L (21.6-31.8); Chloride 99 mmol/L (96-109); Glucose 181 mg/dL (70-110); Magnesium 1.5 mg/dL (1.5-2.4); Potassium 3.9 mmol/L (3.5-5.5); Sodium 135 mmol/L (135-145)
--- NOTE | 2025-01-11 09:53 | P.PN ---
Subjective Patient is seen in follow-up for rhabdomyolysis. CK levels trending down. On IV fluids. Admits to good urine output. Oral intake is good. Vital signs are stable. General: No acute distress. HEENT: Head exam is unremarkable. LUNGS: No audible rhonchi or wheezes. HEART: Rate and Rhythm are regular. ABDOMEN: Nontender. EXTREMITITES: No edema. Objective - Vital Signs Vital signs: Vital Signs Temp 98.8 F 01/11/25 07:04 Pulse 83 01/11/25 07:04 Resp 19 01/11/25 07:04 BP 102/65 01/11/25 07:04 Pulse Ox 95 01/11/25 07:04 FiO2 Intake & Output 01/10/25 01/11/25 01/11/25 18:59 06:59 18:59 Intake Total 1000 Output Total 100 700 Balance 900 -700 Weight 47.627 kg Intake: IV 1000 Output: Urine 700 Estimated Blood Loss 100 Other: Voiding Method External Catheter External Catheter # Voids 1 - Labs CBC & Chem 7: 01/11/25 03:06 01/11/25 03:06 Labs: Abnormal Lab Results - Last 24 Hours (Table) 01/10/25 01/10/25 01/10/25 Range/Units 02:47 13:54 20:44 RBC 2.55 L (3.80-5.40) m/uL Hgb 8.8 L D (11.4-16.0) gm/dL Hct 27.1 L (34.0-46.0) % MCV 106.2 H (80.0-100.0) fL Neutrophils # 8.8 H (1.3-7.7) k/uL Lymphocytes # 0.3 L (1.0-4.8) k/uL BUN (9.0-27.0) mg/dL BUN/Creatinine Ratio (12.00-20.00) Ratio Glucose (70-110) mg/dL Calcium (8.7-10.3) mg/dL Iron 26 L (50-170) UG/DL % Saturation 7.08 L (12.00-45.00) Ferritin 336.0 H (10.0-291.0) ng/mL Creatine Kinase (26-186) U/L Vitamin B12 178.0 L (200.0-944.0) pg/mL 01/11/25 01/11/25 Range/Units 03:06 03:06 RBC 2.37 L (3.80-5.40) m/uL Hgb 8.0 L (11.4-16.0) gm/dL Hct 25.2 L (34.0-46.0) % MCV 106.3 H (80.0-100.0) fL Neutrophils # (1.3-7.7) k/uL Lymphocytes # 0.3 L (1.0-4.8) k/uL BUN 7.7 L (9.0-27.0) mg/dL BUN/Creatinine Ratio 11.00 L (12.00-20.00) Ratio Glucose 181 H (70-110) mg/dL Calcium 8.3 L (8.7-10.3) mg/dL Iron (50-170) UG/DL % Saturation (12.00-45.00) Ferritin (10.0-291.0) ng/mL Creatine Kinase 1216 H (26-186) U/L Vitamin B12 (200.0-944.0) pg/mL Assessment and Plan Plan: Assessment: 1. Rhabdomyolysis secondary to fall and immobility. CK level 2497 on admission - 1216 today. 2. Status post fall with right hip fracture. Orthopedic surgery following. Status post surgical repair January 10, 2025. 3. Benign hypertension. Controlled. 4. Anemia. Iron deficiency noted. 5. Hypomagnesemia from poor intake and diuretic use. Replaced. Better. Plan: Maintain IV fluids. Add IV iron. Add oral magnesium oxide. Encouraged oral intake. Avoid nephrotoxins.
[2025-01-11] MEDS ORDERED: Magnesium Replacement Protocol 1 EACH MISC MISCELLANE PRN (09:57)
[2025-01-11] MEDS: MAGNESIUM OXIDE 400 MG TAB PO SCH (10:28)
[2025-01-11] MEDS: MAGNESIUM SULFATE-D5W PMX 1 GM in DEXTROSE/WATER 1 100ML.BAG IVPB SCH (10:29)
[2025-01-11] MEDS: SODIUM FERRIC GLUCONAT-SUCROSE 125 MG in SODIUM CHLORIDE 0.9% 100 ML IVPB SCH (10:40)
--- NOTE | 2025-01-11 11:15 | P.PN ---
Subjective Progress Note Date: 01/11/25 This is a 59-year-old female who is status post operative fixation of right hip with intramedullary implant. This is postoperative day #1 and patient is seen and evaluated at bedside today. Patient states that she is doing well and was able to transfer to a chair this morning for breakfast. Objective - Vital Signs Vital signs: Vital Signs Temp 98.8 F 01/11/25 07:04 Pulse 83 01/11/25 07:04 Resp 19 01/11/25 07:04 BP 102/65 01/11/25 07:04 Pulse Ox 95 01/11/25 07:04 FiO2 Intake & Output 01/10/25 01/11/25 01/11/25 18:59 06:59 18:59 Intake Total 1000 10 Output Total 100 700 Balance 900 -700 10 Weight 47.627 kg Intake: IV 1000 10 Invasive Line 4 10 Output: Urine 700 Estimated Blood Loss 100 Other: Voiding Method External Catheter External Catheter # Voids 1 - Exam Vital signs are stable. Patient is in no acute distress and is alert and oriented 3. Calf is soft and nontender to palpation. Dressing is clean, dry, and intact. Patient has full foot and ankle motion without pain or difficulty. Sensation intact. Neurovascular status and circulatory status are intact. - Labs CBC & Chem 7: 01/11/25 03:06 01/11/25 03:06 Labs: Abnormal Lab Results - Last 24 Hours (Table) 01/10/25 01/10/25 01/10/25 Range/Units 02:47 13:54 20:44 RBC 2.55 L (3.80-5.40) m/uL Hgb 8.8 L D (11.4-16.0) gm/dL Hct 27.1 L (34.0-46.0) % MCV 106.2 H (80.0-100.0) fL Neutrophils # 8.8 H (1.3-7.7) k/uL Lymphocytes # 0.3 L (1.0-4.8) k/uL BUN (9.0-27.0) mg/dL BUN/Creatinine Ratio (12.00-20.00) Ratio Glucose (70-110) mg/dL Calcium (8.7-10.3) mg/dL Iron 26 L (50-170) UG/DL % Saturation 7.08 L (12.00-45.00) Ferritin 336.0 H (10.0-291.0) ng/mL Creatine Kinase (26-186) U/L Vitamin B12 178.0 L (200.0-944.0) pg/mL 01/11/25 01/11/25 Range/Units 03:06 03:06 RBC 2.37 L (3.80-5.40) m/uL Hgb 8.0 L (11.4-16.0) gm/dL Hct 25.2 L (34.0-46.0) % MCV 106.3 H (80.0-100.0) fL Neutrophils # (1.3-7.7) k/uL Lymphocytes # 0.3 L (1.0-4.8) k/uL BUN 7.7 L (9.0-27.0) mg/dL BUN/Creatinine Ratio 11.00 L (12.00-20.00) Ratio Glucose 181 H (70-110) mg/dL Calcium 8.3 L (8.7-10.3) mg/dL Iron (50-170) UG/DL % Saturation (12.00-45.00) Ferritin (10.0-291.0) ng/mL Creatine Kinase 1216 H (26-186) U/L Vitamin B12 (200.0-944.0) pg/mL Assessment and Plan Assessment: Status post operative fixation of right hip with intramedullary implant (1) Fall Current Visit: Yes Status: Acute Code(s): W19.XXXA - UNSPECIFIED FALL, INITIAL ENCOUNTER SNOMED Code(s): 8405300 (2) Intertrochanteric fracture of right hip Current Visit: Yes Status: Acute Priority: High Code(s): S72.141A - DISPLACED INTERTROCHANTERIC FRACTURE OF RIGHT FEMUR, INIT SNOMED Code(s): 204113693 Plan: Continue routine postop care and pain control. Continue anticoagulation with aspirin. Physical therapy for mobilization. Leave dressing in place for 7 days. Appreciate input from internal medicine. Anticipate discharge to [facility] in the next 24-48 hours. Patient seen and independently evaluated today though I agree with the above history assessment and plan, patient is doing well post op, pain has improved with stabilizing her fracture. She has been able to ambulate a short distance today and was able to place weight on the right leg. Denies any issues with numbness or tingling to the right leg. dressings are clean and intact. Motor and sensory function to the distal aspect of the right lower extremity is intact, no calf tenderness. Gentle passive motion of the right hip has mild discomfort. intact DP pulse and brisk capillary refill noted to the foot. Agree with the above plan WBAT to RLE Aspirin 81mg BID for DVT ppx as well as SCDs continue PT/OT to determine appropriate discharge plans Patient will see me in the office 2 weeks post op for updated images and wound evaluation surgical dressings should remain in place if they become saturated these may be replaced with dry bandages
--- NOTE | 2025-01-12 06:52 | P.PN ---
Subjective Progress Note Date: 01/11/25 Patient 53-year-old female came to the hospital after a fall found to have intertrochanteric fracture of the right hip patient does have leukocytosis and mildly elevated CK about 2000. Patient is receiving IV fluids urinalysis is not consistent with rhabdomyolysis. Patient is having severe pain. Patient denied any history of coronary disease or congestive heart failure patient does have hypertension and diabetes mellitus and seizure disorder... EKG did not show any acute ST-T wave changes did show some Q waves in V1 V2. Patient had a CT head and cervical spine which did not show any acute abnormality patient had a hematoma on the scalp. 01/10/2025 Patient is seen in follow-up today currently n.p.o. with orthopedics following plan for right hip surgical intervention. Hemoglobin on the lower side with no active bleeding noted will follow-up on repeat labs and monitor closely. Magnesium also noted to be significantly low at 1.0 and will replace per protocol. Patient is awaiting to proceed with the procedure. Will await orthopedic report and also PT/OT therapy to evaluate. 01/11/2025 Patient is seen in follow-up today status post right hip intramedullary nail fixation and reports to doing well. Patient reports has been up multiple times and has worked with physical therapy with case management following working on possible discharge to [facility] for continued strength and mobility. Patient is afebrile with no reported chest pain or shortness of breath. Patient reports has been tolerating diet with no reported nausea or vomiting. Patient is passing gas and voiding with no difficulty. Review of systems: Constitutional: No reports of fatigue, fever, or chills Cardiovascular: No reports of chest pain or palpitations Respiratory: No reports of shortness of breath or cough GI: No reports of nausea, vomiting, or diarrhea : No reports of dysuria or retention Neurovascular: reports of generalized weakness with right hip pain and improvements in walking and has been up and walking All medications have been reviewed PHYSICAL EXAMINATION: GENERAL: The patient is alert and oriented x3, not in any acute distress. Well developed, well nourished. Elderly appearing, thin built HEENT: Pupils are round and equally reacting to light. EOMI. No scleral icterus. No conjunctival pallor. Normocephalic, atraumatic. No pharyngeal erythema. No thyromegaly. CARDIOVASCULAR: S1 and S2 present. No murmurs, rubs, or gallops. PULMONARY: Chest is clear to auscultation, no wheezing or crackles. ABDOMEN: Soft, nontender, nondistended, normoactive bowel sounds. No palpable organomegaly. MUSCULOSKELETAL: No deferred to orthopedic surgery EXTREMITIES: No cyanosis, clubbing, or pedal edema. Right hip surgical dressing is dry and intact NEUROLOGICAL: Gross neurological examination did not reveal any focal deficits. Diffusely weak SKIN: No rashes. Assessment: -Intertrochanteric fracture of the right hip status post mechanical fall, status post right hip intramedullary nailing 01/10/2025 -Elevated CK without any evidence of rhabdomyolysis, continue with IV fluids we will cut down the fluids to 75 cc/h., Trending down -Leukocytosis reactive secondary to fall -Hypomagnesemia, currently 1.0 being replaced, improved after replacement -Hypertension, hold off antihypertensive medications with concerns of perioperative hypertension patient blood pressure at this time is good -GI prophylaxis -DVT prophylaxis: Lovenox -Full code Plan: Patient is admitted status post fall noted to have intertrochanteric fracture of the right hip underwent intramedullary nailing with orthopedics Dr. Marshall Continue pain management and DVT prophylaxis Recommend incentive spirometer with instruction and education on how to properly use, continue using 10 times every hour while awake Will need PT/OT therapy evaluation Home medications reviewed and resumed as appropriate Case management/social work consult for discharge planning and patient reports she is going to rehab for continued strength and mobility. The impression and plan of care has been dictated by Anastacia Rogel, Nurse Practitioner as directed. Dr. Valeria MD I have performed a history and examination and MDM of this patient, discussed the same with the dictator, and agree with the dictator's assessment and plan as written ,documented as a scribe. Based on total visit time, I have performed more than 50% of the visit. Objective - Vital Signs Vital signs: Vital Signs Temp 98.8 F 01/11/25 07:04 Pulse 83 01/11/25 07:04 Resp 19 01/11/25 07:04 BP 102/65 01/11/25 07:04 Pulse Ox 95 01/11/25 07:04 FiO2 Intake & Output 01/10/25 01/11/25 01/11/25 18:59 06:59 18:59 Intake Total 1000 Output Total 100 700 Balance 900 -700 Weight 47.627 kg Intake: IV 1000 Output: Urine 700 Estimated Blood Loss 100 Other: Voiding Method External Catheter External Catheter # Voids 1 - Labs CBC & Chem 7: 01/11/25 03:06 01/11/25 03:06 Labs: Abnormal Lab Results - Last 24 Hours (Table) 01/10/25 01/10/25 01/10/25 Range/Units 02:47 13:54 20:44 RBC 2.55 L (3.80-5.40) m/uL Hgb 8.8 L D (11.4-16.0) gm/dL Hct 27.1 L (34.0-46.0) % MCV 106.2 H (80.0-100.0) fL Neutrophils # 8.8 H (1.3-7.7) k/uL Lymphocytes # 0.3 L (1.0-4.8) k/uL BUN (9.0-27.0) mg/dL BUN/Creatinine Ratio (12.00-20.00) Ratio Glucose (70-110) mg/dL Calcium (8.7-10.3) mg/dL Iron 26 L (50-170) UG/DL % Saturation 7.08 L (12.00-45.00) Ferritin 336.0 H (10.0-291.0) ng/mL Creatine Kinase (26-186) U/L Vitamin B12 178.0 L (200.0-944.0) pg/mL 01/11/25 01/11/25 Range/Units 03:06 03:06 RBC 2.37 L (3.80-5.40) m/uL Hgb 8.0 L (11.4-16.0) gm/dL Hct 25.2 L (34.0-46.0) % MCV 106.3 H (80.0-100.0) fL Neutrophils # (1.3-7.7) k/uL Lymphocytes # 0.3 L (1.0-4.8) k/uL BUN 7.7 L (9.0-27.0) mg/dL BUN/Creatinine Ratio 11.00 L (12.00-20.00) Ratio Glucose 181 H (70-110) mg/dL Calcium 8.3 L (8.7-10.3) mg/dL Iron (50-170) UG/DL % Saturation (12.00-45.00) Ferritin (10.0-291.0) ng/mL Creatine Kinase 1216 H (26-186) U/L Vitamin B12 (200.0-944.0) pg/mL
--- NOTE | 2025-01-12 07:50 | P.PN ---
Subjective Progress Note Date: 01/12/25 Principal diagnosis: Intertrochanteric fracture right hip. Rhabdomyolysis. Odette is postop day #3 status post closed reduction with insertion of intertrochanteric nail of the right hip. She states that she had a rough night with pain last evening. She is doing better this morning. She reports no nausea, vomiting or diarrhea. Vital signs are stable. Hemoglobin is 8.0. CK is still elevated. Objective - Vital Signs Vital signs: Vital Signs Temp 98.6 F 01/12/25 07:10 Pulse 90 01/12/25 07:10 Resp 18 01/12/25 07:10 BP 111/68 01/12/25 07:10 Pulse Ox 97 01/12/25 07:10 FiO2 Intake & Output 01/11/25 01/12/25 01/12/25 18:59 06:59 18:59 Intake Total 1360 Balance 1360 Intake: IV 10 Invasive Line 4 10 Intake, IV Titration 1350 Amount Lactated Ringers 1,000 ml 1000 @ 100 mls/hr IV .Q10H [facility] Rx#:[id number] Magnesium Sulfate-D5w Pmx 200 1 gm In Dextrose/Water 1 100ml.bag @ 100 mls/hr IVPB Q1H [facility] Rx#: [id number] Sodium Ferric Gluconat- 100 Sucrose 125 mg In Sodium Chloride 0.9% 100 ml @ 100 mls/hr IVPB DAILY [facility] Rx#:[id number] ceFAZolin 2 gm In Sodium 50 Chloride 0.9% 50 ml @ 100 mls/hr IVPB Q8HR [facility] Rx# :[id number] Other: Voiding Method Toilet Bedside Commode # Voids 2 2 # Bowel Movements 1 1 - Exam This is a pleasant 59-year-old female in no acute distress. She is alert and oriented x 3. Dressing is clean, dry and intact. She has full foot and ankle motion without difficulty or pain. There is minimal soft tissue swelling to the thigh and hip. No erythema or ecchymosis. Neurovascular status to the lower extremity is intact. - Labs CBC & Chem 7: 01/11/25 03:06 01/11/25 03:06 Labs: Abnormal Lab Results - Last 24 Hours (Table) 01/10/25 01/11/25 Range/Units 02:47 03:06 BUN 7.7 L (9.0-27.0) mg/dL BUN/Creatinine Ratio 11.00 L (12.00-20.00) Ratio Glucose 181 H (70-110) mg/dL Calcium 8.3 L (8.7-10.3) mg/dL Creatine Kinase 1216 H (26-186) U/L Total Creatine Kinase 1534 H (30-223) u/L Assessment and Plan (1) Fall Current Visit: Yes Status: Acute Code(s): W19.XXXA - UNSPECIFIED FALL, INITIAL ENCOUNTER SNOMED Code(s): 6712745 (2) Intertrochanteric fracture of right hip Current Visit: Yes Status: Acute Priority: High Code(s): S72.141A - DISPLACED INTERTROCHANTERIC FRACTURE OF RIGHT FEMUR, INIT SNOMED Code(s): 467448302 (3) Rhabdomyolysis Current Visit: Yes Status: Acute Code(s): M62.82 - RHABDOMYOLYSIS SNOMED Code(s): 099368079 Plan: The clinical and radiographic findings are discussed with the patient. The patient may be discharged to inpatient rehab when she is cleared medically. Continue physical therapy daily. Patient seen and independently examined by myself today, agree with the above interval history and exam, on my assessment she has had imrpovement in her pain and has been able to continue ambulating with therapy and place weight onto her operative leg. She is working with case managment on placement at this time and anticipates a rehab placement. she has improvement in her CK levels though they remain elevated overall. Dressings are clean and intact sensation and motor function intact throughout the right lower extremity able to tolerate passive motion of the hip with only mild groin pain no calf tenderness palpable DP pulse and brisk capillary refill to the foot WBAT RLE dressings to remain in place until follow up visit Aspirin 81mg BID for DVT ppx will see patient 2 weeks post op in our office From an orthopedic standpoint patient may discharge to rehab facility one cleared medically
[2025-01-12 09:33] LABS: Magnesium 1.4 mg/dL (1.5-2.4)
--- NOTE | 2025-01-12 10:04 | P.PN ---
Subjective Patient is seen in follow-up for rhabdomyolysis. CK levels trending down. On IV fluids. Admits to good urine output. Oral intake is good. Vital signs are stable. General: No acute distress. HEENT: Head exam is unremarkable. LUNGS: No audible rhonchi or wheezes. HEART: Rate and Rhythm are regular. ABDOMEN: Nontender. EXTREMITITES: No edema. Objective - Vital Signs Vital signs: Vital Signs Temp 98.6 F 01/12/25 07:10 Pulse 90 01/12/25 07:10 Resp 18 01/12/25 07:10 BP 111/68 01/12/25 07:10 Pulse Ox 97 01/12/25 07:10 FiO2 Intake & Output 01/11/25 01/12/25 01/12/25 18:59 06:59 18:59 Intake Total 1360 Balance 1360 Intake: IV 10 Invasive Line 4 10 Intake, IV Titration 1350 Amount Lactated Ringers 1,000 ml 1000 @ 100 mls/hr IV .Q10H [facility] Rx#:[id number] Magnesium Sulfate-D5w Pmx 200 1 gm In Dextrose/Water 1 100ml.bag @ 100 mls/hr IVPB Q1H [facility] Rx#: [id number] Sodium Ferric Gluconat- 100 Sucrose 125 mg In Sodium Chloride 0.9% 100 ml @ 100 mls/hr IVPB DAILY [facility] Rx#:[id number] ceFAZolin 2 gm In Sodium 50 Chloride 0.9% 50 ml @ 100 mls/hr IVPB Q8HR [facility] Rx# :[id number] Other: Voiding Method Toilet Bedside Commode # Voids 2 2 # Bowel Movements 1 1 - Labs CBC & Chem 7: 01/11/25 03:06 01/11/25 03:06 Labs: Abnormal Lab Results - Last 24 Hours (Table) 01/10/25 01/12/25 Range/Units 02:47 03:05 Magnesium 1.4 L (1.5-2.4) mg/dL Creatine Kinase 881 H (26-186) U/L Total Creatine Kinase 1534 H (30-223) u/L Assessment and Plan Plan: Assessment: 1. Rhabdomyolysis secondary to fall and immobility. CK level 2497 on admission -881 today. 2. Status post fall with right hip fracture. Orthopedic surgery following. Status post surgical repair January 10, 2025. 3. Benign hypertension. Controlled. 4. Anemia. Iron deficiency noted. 5. Hypomagnesemia from poor intake and diuretic use. Replaced. On oral magnesium oxide. Plan: Maintain IV fluids. Maintain IV iron. 2 g IV magnesium sulfate today. Encouraged oral intake. Avoid nephrotoxins.
[2025-01-12] MEDS: MAGNESIUM SULFATE-D5W PMX 1 GM in DEXTROSE/WATER 1 100ML.BAG IVPB SCH (10:16)
[2025-01-12] MEDS: MAGNESIUM OXIDE 400 MG TAB PO SCH (20:35)
[2025-01-12 22:26] LABS: Basophils # (A) 0.1 k/uL (0-0.2); Basophils % (A) 1 %; Eosinophils # (A) 0.2 k/uL (0-0.7); Eosinophils % (A) 3 %; HCT 23.4 % (34.0-46.0); HGB 7.6 gm/dL (11.4-16.0); Hypochromasia Slight; Lymphocytes # (A) 1.6 k/uL (1.0-4.8); Lymphocytes % (A) 22 %; MCH 34.9 pg (25.0-35.0); MCHC 32.5 g/dL (31.0-37.0); MCV 107.5 fL (80.0-100.0); Macrocytosis Moderate; Mean Platelet Volume 8.3; Monocytes # (A) 0.5 k/uL (0-1.0); Monocytes % (A) 7 %; Neutrophils # (A) 4.7 k/uL (1.3-7.7); Neutrophils % (A) 66 %; Platelet Count 219 k/uL (150-450); RBC 2.17 m/uL (3.80-5.40); WBC 7.1 k/uL (3.8-10.6)
--- NOTE | 2025-01-13 02:40 | P.PN ---
Subjective Progress Note Date: 01/12/25 Patient 53-year-old female came to the hospital after a fall found to have intertrochanteric fracture of the right hip patient does have leukocytosis and mildly elevated CK about 1999. Patient is receiving IV fluids urinalysis is not consistent with rhabdomyolysis. Patient is having severe pain. Patient denied any history of coronary disease or congestive heart failure patient does have hypertension and diabetes mellitus and seizure disorder... EKG did not show any acute ST-T wave changes did show some Q waves in V1 V2. Patient had a CT head and cervical spine which did not show any acute abnormality patient had a hematoma on the scalp. 01/10/2025 Patient is seen in follow-up today currently n.p.o. with orthopedics following plan for right hip surgical intervention. Hemoglobin on the lower side with no active bleeding noted will follow-up on repeat labs and monitor closely. Magnesium also noted to be significantly low at 1.0 and will replace per protocol. Patient is awaiting to proceed with the procedure. Will await orthopedic report and also PT/OT therapy to evaluate. 01/11/2025 Patient is seen in follow-up today status post right hip intramedullary nail fixation and reports to doing well. Patient reports has been up multiple times and has worked with physical therapy with case management following working on possible discharge to ECF for continued strength and mobility. Patient is afebrile with no reported chest pain or shortness of breath. Patient reports has been tolerating diet with no reported nausea or vomiting. Patient is passing gas and voiding with no difficulty. 01/12/2025 Patient is seen in follow-up today up in the chair has been working with physi landen therapy awaiting insurance authorization to go to ECF for continued strength and mobility. Patient is afebrile and CK is improving. No reported nausea or vomiting and patient has been tolerating diet. it was noted that patient is a heavy drinker although is not actively withdrawing at this time. Will monitor closely for any signs of withdrawals. Recommend PT/OT therapy daily and awaiting insurance authorization at this time. Review of systems: Constitutional: No reports of fatigue, fever, or chills Cardiovascular: No reports of chest pain or palpitations Respiratory: No reports of shortness of breath or cough GI: No reports of nausea, vomiting, or diarrhea : No reports of dysuria or retention Neurovascular: reports of generalized weakness with right hip pain and improvements in walking and has been up and walking All medications have been reviewed PHYSICAL EXAMINATION: GENERAL: The patient is alert and oriented x3, not in any acute distress. Well developed, well nourished. Elderly appearing, thin built HEENT: Pupils are round and equally reacting to light. EOMI. No scleral icterus. No conjunctival pallor. Normocephalic, atraumatic. No pharyngeal erythema. No thyromegaly. CARDIOVASCULAR: S1 and S2 present. No murmurs, rubs, or gallops. PULMONARY: Chest is clear to auscultation, no wheezing or crackles. ABDOMEN: Soft, nontender, nondistended, normoactive bowel sounds. No palpable organomegaly. MUSCULOSKELETAL: No deferred to orthopedic surgery EXTREMITIES: No cyanosis, clubbing, or pedal edema. Right hip surgical dressing is dry and intact NEUROLOGICAL: Gross neurological examination did not reveal any focal deficits. Diffusely weak SKIN: No rashes. Assessment: -Intertrochanteric fracture of the right hip status post mechanical fall, status post right hip intramedullary nailing 01/10/2025 -Elevated CK with traumatic rhabdomyolysis with prolonged downtime, CK trending down and improving -Leukocytosis reactive secondary to fall -Hypomagnesemia, currently 1.0 being replaced, improved after replacement -Hypertension, hold off antihypertensive medications with concerns of perioperative hypertension patient blood pressure at this time is good -Daily alcohol use and has been drinking more heavily since recent loss of her brother, not actively withdrawing at this time -Mild protein calorie malnutrition with a BMI of 19.2 -History of IBS -GI prophylaxis -DVT prophylaxis: Lovenox -Full code Plan: Patient is admitted status post fall noted to have intertrochanteric fracture of the right hip underwent intramedullary nailing with orthopedics Dr. Espinoza Continue pain management and DVT prophylaxis Recommend incentive spirometer with instruction and education on how to properly use, continue using 10 times every hour while awake PT/OT therapy evaluated recommending rehab and patient is agreeable. Home medications reviewed and resumed as appropriate Case management/social work following for discharge planning and patient reports she is going to rehab for continued strength and mobility. Currently awaiting insurance authorization The impression and plan of care has been dictated by Anastacia Rogel, Nurse Practitioner as directed. Dr. Valeria MD I have performed a history and examination and MDM of this patient, discussed the same with the dictator, and agree with the dictator's assessment and plan as written ,documented as a scribe. Based on total visit time, I have performed more than 50% of the visit. Objective - Vital Signs Vital signs: Vital Signs Temp 98.6 F 01/12/25 07:10 Pulse 90 01/12/25 07:10 Resp 18 01/12/25 07:10 BP 111/68 01/12/25 07:10 Pulse Ox 97 01/12/25 07:10 FiO2 Intake & Output 01/11/25 01/12/25 01/12/25 18:59 06:59 18:59 Intake Total 1360 Balance 1360 Intake: IV 10 Invasive Line 4 10 Intake, IV Titration 1350 Amount Lactated Ringers 1,000 ml 1000 @ 100 mls/hr IV .Q10H [facility] Rx#:[id number] Magnesium Sulfate-D5w Pmx 200 1 gm In Dextrose/Water 1 100ml.bag @ 100 mls/hr IVPB Q1H [facility] Rx#: [id number] Sodium Ferric Gluconat- 100 Sucrose 125 mg In Sodium Chloride 0.9% 100 ml @ 100 mls/hr IVPB DAILY [facility] Rx#:[id number] ceFAZolin 2 gm In Sodium 50 Chloride 0.9% 50 ml @ 100 mls/hr IVPB Q8HR [facility] Rx# :[id number] Other: Voiding Method Toilet Bedside Commode # Voids 2 2 # Bowel Movements 1 1 - Labs CBC & Chem 7: 01/12/25 20:42 01/11/25 03:06 Labs: Abnormal Lab Results - Last 24 Hours (Table) 01/10/25 01/12/25 Range/Units 02:47 03:05 Magnesium 1.4 L (1.5-2.4) mg/dL Creatine Kinase 881 H (26-186) U/L Total Creatine Kinase 1534 H (30-223) u/L
--- NOTE | 2025-01-13 08:42 | P.PN ---
Subjective Progress Note Date: 01/13/25 Odette is postop day #4 status post closed reduction with insertion of intertrochanteric nail of the right hip. She states her pain has continued to slowly improve. She states that she has been up to the bathroom this a.m. with walker and assistance without difficulty. She states she like to take a shower today. Denies chest pain or shortness of breath. Objective - Vital Signs Vital signs: Vital Signs Temp 98.2 F 01/13/25 01:25 Pulse 81 01/13/25 01:25 Resp 17 01/13/25 01:25 BP 122/72 01/13/25 01:25 Pulse Ox 97 01/13/25 01:25 FiO2 Intake & Output 01/12/25 01/13/25 01/13/25 18:59 06:59 18:59 Other: Voiding Method Toilet # Voids 5 5 # Bowel Movements 2 - Exam Patient was examined at bedside. Patient is resting comfortably in a chair. No apparent distress. They are awake, alert and able to answer questions. Inspection: The surgical dressings are intact, there is no drainage or strikethrough. The skin surrounding the dressing is free of erythema. There is mild swelling in the operative thigh. Palpation: The operative calf is soft to compression. No calf tenderness. Neurovascular: Operative femoral nerve function is intact. The patient is able to actively plantarflex and dorsiflex their operative ankle and toes. Operative extremity sensation is intact to light touch throughout. Their operative foot appears well perfused, palpable dorsalis pedis pulse, and capillary refill under 2 seconds. - Labs CBC & Chem 7: 01/12/25 20:42 01/11/25 03:06 Labs: Abnormal Lab Results - Last 24 Hours (Table) 01/12/25 01/12/25 Range/Units 03:05 20:42 RBC 2.17 L (3.80-5.40) m/uL Hgb 7.6 L (11.4-16.0) gm/dL Hct 23.4 L (34.0-46.0) % MCV 107.5 H (80.0-100.0) fL Magnesium 1.4 L (1.5-2.4) mg/dL Creatine Kinase 881 H (26-186) U/L Assessment and Plan Assessment: Fall intertrochateric fracture right hip right hip pain rhabdomyolysis Plan: Continue physical therapy. Weight-bear as tolerated on the right lower extremity. Patient may shower with current surgical dressings. Aspirin 81mg BID for DVT prophylaxis. Patient will have an outpatient 2-week follow-up. Patient may transfer to shelter facility from a orthopedic standpoint, when cleared by internal medicine team. We appreciate medicine team. Patient was seen and independently evaluated by myself and I agree with the above interval history and exam. She notes improved pain today and ambulatory ability. Has been participating with therapy and has increased her walking distance from her previous sessions. dressings remain clean and intact, she remains NVI to the right lower extremity, no calf tenderness, gentle passive hip ROM is well tolerated. She is awating discharge to SNF, once cleared from a medical standpoint there are no orthopedic limitations for discharge WBAT RLE keep dressings in place until follow up if these need to be changed please replace with dry dressings only Aspirin 81mg bid follow up in 2 weeks in our office
[2025-01-13 09:17] VITALS: RESP 18
--- NOTE | 2025-01-13 11:21 | P.PN ---
Subjective Patient is seen in follow-up for rhabdomyolysis. CK levels trending down. Off IV fluids. Admits to good urine output. Oral intake is good. Vital signs are stable. General: No acute distress. HEENT: Head exam is unremarkable. LUNGS: No audible rhonchi or wheezes. HEART: Rate and Rhythm are regular. ABDOMEN: Nontender. EXTREMITITES: No edema. Objective - Vital Signs Vital signs: Vital Signs Temp 98.3 F 01/13/25 07:21 Pulse 84 01/13/25 07:21 Resp 18 01/13/25 07:21 BP 121/77 01/13/25 07:21 Pulse Ox 95 01/13/25 07:21 FiO2 Intake & Output 01/12/25 01/13/25 01/13/25 18:59 06:59 18:59 Other: Voiding Method Toilet # Voids 5 5 # Bowel Movements 2 - Labs CBC & Chem 7: 01/12/25 20:42 01/11/25 03:06 Labs: Abnormal Lab Results - Last 24 Hours (Table) 01/12/25 Range/Units 20:42 RBC 2.17 L (3.80-5.40) m/uL Hgb 7.6 L (11.4-16.0) gm/dL Hct 23.4 L (34.0-46.0) % MCV 107.5 H (80.0-100.0) fL Assessment and Plan Plan: Assessment: 1. Rhabdomyolysis secondary to fall and immobility. CK level 2497 on admission -881 yesterday. 2. Status post fall with right hip fracture. Orthopedic surgery following. Status post surgical repair January 10, 2025. 3. Benign hypertension. Controlled. 4. Anemia. Iron deficiency noted. 5. Hypomagnesemia from poor intake and diuretic use. Replaced. On oral magnesium oxide. Plan: Hep-Lock IV fluids. Maintain IV iron. Encouraged oral intake. Avoid nephrotoxins. Awaits discharge to rehab.
[2025-01-13 11:34] LABS: Magnesium 1.2 mg/dL (1.5-2.4)
[2025-01-13] MEDS ORDERED: Magnesium Replacement Protocol 1 EACH MISC MISCELLANE PRN (14:19)
--- NOTE | 2025-01-13 15:13 | P.DS ---
Providers Date of admission: 01/09/25 07:30 Expected date of discharge: 01/13/25 Attending physician: Harshal Lew MD Consults: 01/09/25 07:47 Consult Physician Urgent Consulting Provider: Benedicto Espinoza Consult Reason/Comments: IT fracture Do you want consulting provider notified?: Already Contacted Consult Physician Urgent Consulting Provider: Mirtha Damon Consult Reason/Comments: rhabdomyolysis Do you want consulting provider notified?: Yes Primary care physician: Teodora Lewis Hospital Course: Final diagnosis -Intertrochanteric fracture of the right hip status post mechanical fall, status post right hip intramedullary nailing 01/10/2025 -Elevated CK with traumatic rhabdomyolysis with prolonged downtime, CK trending down and improving -Leukocytosis reactive secondary to fall -Hypomagnesemia, currently being replaced, and will continue on twice daily supplement -Hypertension, hold off antihypertensive medications and may resume if blood pressure is trending up in the next few days -Daily alcohol use and has been drinking more heavily since recent loss of her brother, not actively withdrawing at this time -Mild protein calorie malnutrition with a BMI of 19.2 -History of IBS -GI prophylaxis -DVT prophylaxis: Lovenox -Full code Discharge disposition Patient is being discharged in a stable condition with guarded prognosis to [facility]. Patient will follow-up with Dr. Lewis in the outpatient setting upon discharge. Patient is to continue with outpatient follow-up with orthopedics as scheduled. Total time taken is greater than 35 minutes. Hospital course This is a 59-year-old female who was recently admitted with fall noted to have right hip fracture and is status post right hip intramedullary nailing on 01/10/2025. Patient also noted to have an elevated CK with acute rhabdomyolysis with prolonged downtime and is trending down. Patient with significant weakness evaluated by physical therapy recommending rehab and patient is agreeable. Patient has significantly low hypomagnesemia and was replaced and recommended twice daily supplements with repeat labs of CBC, CMP, magnesium in 2 to 3 days. Patient has been instructed to follow-up with primary care provider as well as orthopedics outpatient. Patient does drink heavily although is working with her provider regarding alcohol cessation. Patient is not actively withdrawing and has been counseled on complete alcohol cessation. Patient reports she has been to alcohol rehabs previously. Currently no reports of chest pain, shortness of breath, or palpitations. Patient is afebrile. No reports of nausea or vomiting and patient is tolerating diet. Patient will be going to [facility] on the [facility] today. Physical exam: Gen: This is a 59-year-old female who is awake, alert and oriented x 3, well- developed, thin build, elderly appearing HEENT: Head is atraumatic, normocephalic. Pupils equal, round. Sclerae is anicteric. NECK: Supple. No JVD. No lymphadenopathy. No thyromegaly. LUNGS: Diminished breath sounds bilaterally otherwise clear to auscultation. No wheezes or rhonchi. No intercostal retractions. HEART: S1, S2 are muffled ABDOMEN: Soft. Thin bowel sounds are present. No masses. No tenderness. EXTREMITIES: No pedal edema. No calf tenderness. NEUROLOGICAL: Patient is awake, alert and oriented x3. Cranial nerves 2 through 12 are grossly intact. Diffusely weak Please refer to medication reconciliation sheet for a list of medications. The impression and plan of care has been dictated by Anastacia Rogel, Nurse Practitioner as directed. Dr. Valeria MD I have performed a history and examination and MDM of this patient, discussed the same with the dictator, and agree with the dictator's assessment and plan as written ,documented as a scribe. Based on total visit time, I have performed more than 50% of the visit. Patient Condition at Discharge: Stable Plan - Discharge Summary New Discharge Prescriptions: New Aspirin [Adult Low Dose Aspirin EC] 81 mg PO BID #1 tab Enoxaparin [Lovenox] 40 mg SQ DAILY each Magnesium Oxide [Mag-Ox] 400 mg PO BID tab HYDROcodone/APAP 7.5-325MG [Hewett 7.5-325] 1 - 2 tab PO Q6HR PRN #32 tab PRN Reason: Pain Sennosides-Docusate Sodium [Senokot-S] 1 tab PO BID #60 tablet Magnesium Hydroxide [Milk of Magnesia] 2,400 mg PO DAILY PRN ml PRN Reason: Constipation Famotidine [Pepcid] 20 mg PO BID tab Acetaminophen Tab [Tylenol] 650 mg PO Q6HR PRN tab PRN Reason: Mild Pain Or Fever > 100.5 Continue Potassium Chloride [Klor-Con M20] 20 meq PO DAILY Cetirizine HCl [Zyrtec] 10 mg PO DAILY PRN PRN Reason: Allergy Symptoms Cyanocobalamin (Vitamin B-12) [Vitamin B-12] 1,000 mcg PO DAILY Butalb/APAP/Caff 50-325-40Mg [Fioricet 50-325-40] 1 tab PO Q6H PRN PRN Reason: Migraine Headache Multivitamins, Thera [Multivitamin (formulary)] 1 tab PO DAILY Metoprolol Succinate [Toprol XL] 50 mg PO DAILY Discontinued Magnesium Oxide [Mag-Ox] 400 mg PO DAILY lisinopriL [Zestril] 5 mg PO DAILY Discharge Medication List Multivitamins, Thera [Multivitamin (formulary)] 1 tab PO DAILY 09/11/21 [History] Metoprolol Succinate [Toprol XL] 50 mg PO DAILY 03/08/24 [History] Potassium Chloride [Klor-Con M20] 20 meq PO DAILY 03/08/24 [History] Cetirizine HCl [Zyrtec] 10 mg PO DAILY PRN 12/07/24 [History] Cyanocobalamin (Vitamin B-12) [Vitamin B-12] 1,000 mcg PO DAILY 12/07/24 [History] Butalb/APAP/Caff 50-325-40Mg [Fioricet 50-325-40] 1 tab PO Q6H PRN 01/09/25 [History] Aspirin [Adult Low Dose Aspirin EC] 81 mg PO BID #1 tab 01/12/25 [Rx] HYDROcodone/APAP 7.5-325MG [Hewett 7.5-325] 1 - 2 tab PO Q6HR PRN #32 tab 01/12/25 [Rx] Sennosides-Docusate Sodium [Senokot-S] 1 tab PO BID #60 tablet 01/12/25 [Rx] Acetaminophen Tab [Tylenol] 650 mg PO Q6HR PRN tab 01/13/25 [Rx] Enoxaparin [Lovenox] 40 mg SQ DAILY each 01/13/25 [Rx] Famotidine [Pepcid] 20 mg PO BID tab 01/13/25 [Rx] Magnesium Hydroxide [Milk of Magnesia] 2,400 mg PO DAILY PRN ml 01/13/25 [Rx] Magnesium Oxide [Mag-Ox] 400 mg PO BID tab 01/13/25 [Rx] Follow up Appointment(s)/Referral(s): Benedicto Espinoza MD [STAFF PHYSICIAN] - 01/25/25 2:00 pm Teodora Lewis MD [Primary Care Provider] - 1-2 days Activity/Diet/Wound Care/Special Instructions: May bear wt as tolerated w walker. May shower. Remove Optifoam dressing 7 days post op. Discharge Disposition: TRANSFER TO SNF/ECF
[2025-01-13] MEDS: MAGNESIUM SULFATE-D5W PMX 1 GM in DEXTROSE/WATER 1 100ML.BAG IVPB SCH (15:21)
[2025-01-13 15:46] VITALS: BP 100/64; PULSE 83; TEMP 98.2
== END 2025-01-13 17:04 | DRG 308 ==
LOC: EC 06:08 → 4SSUR 07:30
PROVIDERS: ADMIT Internal Medicine; ATTEND Internal Medicine
PROC: 8E0YXBF Computer Assisted Procedure of Lower Extremity, With Fluoroscopy (ICD-10-PCS; 2025-01-10)
PROC: 0QS604Z Reposition Right Upper Femur with Internal Fixation Device, Open Approach (ICD-10-PCS; principal; 2025-01-10 09:10)
DX: S72.141A Displaced intertrochanteric fracture of right femur, initial encounter for closed fracture (principal); I10 Essential (primary) hypertension; D72.829 Elevated white blood cell count, unspecified; W08.XXXA Fall from other furniture, initial encounter; E83.42 Hypomagnesemia; E44.1 Mild protein-calorie malnutrition; T79.6XXA Traumatic ischemia of muscle, initial encounter; Z11.52 Encounter for screening for COVID-19; R74.8 Abnormal levels of other serum enzymes; E11.9 Type 2 diabetes mellitus without complications; F32.A Depression, unspecified; D50.9 Iron deficiency anemia, unspecified; F41.9 Anxiety disorder, unspecified; G40.909 Epilepsy, unspecified, not intractable, without status epilepticus; W22.03XA Walked into furniture, initial encounter; Z68.1 Body mass index [BMI] 19.9 or less, adult; Z79.899 Other long term (current) drug therapy; S00.03XA Contusion of scalp, initial encounter; Z88.0 Allergy status to penicillin; K58.9 Irritable bowel syndrome, unspecified; G89.29 Other chronic pain; Y92.099 Unspecified place in other non-institutional residence as the place of occurrence of the external cause; Z98.51 Tubal ligation status; Z86.79 Personal history of other diseases of the circulatory system; Z87.440 Personal history of urinary (tract) infections
CPT/HCPCS: 36415; 70450; 72125; 73502; 80048; 80053; 81003; 82550; 82552; 82607; 82728; 82746; 83540; 83550; 83735; 85025; 85027; 86850; 86900; 86901; 87636; 93005; 96361; 96374; 96375; 96376; 99285